=== PATIENT | male | born 1945 | race Caucasian/White ===

== ENCOUNTER 2018-03-15 18:52 | Emergency (ER) | payer OTHER ==
[2018-03-15] MEDS ORDERED: HYDROCODONE/APAP 7.5/325 MG TAB ONE (19:51)
--- NOTE | 2018-03-15 20:45 | RAD REPORT ---
EXAM DESCRIPTION: RAD - Shoulder Right 2 View - 03/15/2018 8:16 pm CLINICAL HISTORY: Right shoulder pain FINDINGS: No fracture or dislocation is seen. Moderate osteoarthritis involves the glenohumeral join t consisting joint space narrowing and osteophytes. Mild osteoarthritis involves the AC joint
--- NOTE | 2018-03-15 20:45 | RAD REPORT ---
EXAM DESCRIPTION: RAD - Wrist Left 2 View - 03/15/2018 8:16 pm CLINICAL HISTORY: Left wrist pain FINDINGS: No fracture or dislocation is seen. 8 millimeter well-circumscribed lucency with a sclerotic border is present within the distal ulna whi ch appears benign
--- NOTE | 2018-03-15 20:56 | ER ---
Nurse's Notes [facility] Name: Bon Simon Age: 73 yrs Sex: Male : 1945 Arrival Date: 03/15/2018 Time: 18:57 Bed 7 Private MD: Silvano Minaya R Diagnosis: Pain in left wrist;Pain in right shoulder Presentation: 03/15 18:59 Presenting complaint: Patient states: "I have been over active working and my left jd3 wrist is hurting me. It is tender and swelling.". Transition of care: patient was not received from another setting of care. Onset of symptoms was March 15, 2018. Risk Assessment: Do you want to hurt yourself or someone else? Patient reports no desire to harm self or others. Initial Sepsis Screen: Does the patient meet any 2 criteria? No. Patient's initial sepsis screen is negative. Does the patient have a suspected source of infection? No. Patient's initial sepsis screen is negative. Care prior to arrival: None. 18:59 Method Of Arrival: Ambulatory jd3 18:59 Acuity: BREA 4 jd3 Historical: - Allergies: 19:03 No Known Allergies; jd3 - Home Meds: 19:03 warfarin 10 mg Oral tab [Active]; Tramadol Oral [Active]; jd3 - PMHx: 19:03 CVA; jd3 - PSHx: 19:03 right lung; jd3 - Immunization history:: Adult Immunizations up to date. - Social history:: Smoking status: Patient/guardian denies using tobacco. - Ebola Screening: : Patient negative for fever greater than or equal to 101.5 degrees Fahrenheit, and additional compatible Ebola Virus Disease symptoms. Screenin:14 Abuse screen: Denies threats or abuse. Denies injuries from another. Nutritional ca1 screening: No deficits noted. Tuberculosis screening: No symptoms or risk factors identified. Fall Risk None identified. Assessment: 19:14 General: Appears in no apparent distress. Behavior is calm, cooperative, appropriate ca1 for age. Pain: Complains of pain in left wrist and right shoulder. Pain currently is 8 out of 10 on a pain scale. Neuro: Level of Consciousness is awake, alert, obeys commands, Oriented to person, place, time, situation. Cardiovascular: Heart tones S1 S2 present Capillary refill < 3 seconds Patient's skin is warm and dry. Respiratory: Airway is patent Trachea midline Respiratory effort is even, unlabored, Respiratory pattern is regular, symmetrical, Breath sounds are clear bilaterally. GI: Abdomen is flat, non-distended, Bowel sounds present X 4 quads. Abd is soft and non tender X 4 quads. : No signs and/or symptoms were reported regarding the genitourinary system. EENT: No signs and/or symptoms were reported regarding the EENT system. Derm: Skin is intact, Skin is pink, warm \\T\\ dry. Musculoskeletal: Circulation, motion, and sensation intact. Capillary refill < 3 seconds. 20:03 Reassessment: Patient appears in no apparent distress at this time. Patient and/or ca1 family updated on plan of care and expected duration. Pain level reassessed. Patient is alert, oriented x 3, equal unlabored respirations, skin warm/dry/pink. X-ray at bedside. 21:00 Reassessment: Patient appears in no apparent distress at this time. Patient and/or ca1 family updated on plan of care and expected duration. Pain level reassessed. Patient is alert, oriented x 3, equal unlabored respirations, skin warm/dry/pink. Rommel wrap done. Refused to put on the sling at this time. Said he'd drop by some place to eat, but will put after with daughter's help. Showed him how to put the sling properly. Vital Signs: 19:03 BP 120 / 101; Pulse 99; Resp 18; Temp 97.1; Pulse Ox 98% ; Weight 99.79 kg; Height 6 jd3 ft. 2 in. (187.96 cm); Pain 7/10; 20:03 BP 156 / 80; Pulse 87; Resp 18; Pulse Ox 98% on R/A; ca1 19:03 Body Mass Index 28.25 (99.79 kg, 187.96 cm) jd3 ED Course: 18:57 Patient arrived in ED. rg4 18:58 Silvano Minaya MD is Private Physician. rg4 19:00 Triage completed. jd3 19:04 Arm band placed on. jd3 19:13 Chaparrita Ledesma, FROYLAN is Primary Nurse. ca1 19:14 Patient has correct armband on for positive identification. Bed in low position. Call ca1 light in reach. Side rails up X 1. Pulse ox on. NIBP on. 19:21 Erma Rodriguez FNP-C is PHCP. kb 19:21 Markel Hussein MD is Attending Physician. kb 20:16 X-ray completed. Portable x-ray completed in exam room. Patient tolerated procedure bb2 well. 20:16 Shoulder Right (2 View) XRAY In Process Unspecified. EDMS 20:16 Wrist Left (2 View) XRAY In Process Unspecified. EDMS 21:00 No provider procedures requiring assistance completed. Rommel wrap to left wrist by BRANDI Dobbs. 21:05 Patient did not have IV access during this emergency room visit. ca1 Administered Medications: 19:32 CANCELLED (Duplicate Order): [place] (7.5 mg-325 mg) 1 tabs PO once kb 19:44 Drug: [place] (7.5 mg-325 mg) 1 tabs Route: PO; ca1 21:09 Follow up: Response: No adverse reaction; Pain is decreased ca1 Outcome: 20:55 Discharge ordered by . kb 21:05 Discharged to home ambulatory, with family. ca1 21:05 Condition: stable 21:05 Discharge instructions given to patient, Instructed on discharge instructions, follow up and referral plans. medication usage, Demonstrated understanding of instructions, follow-up care, medications, Prescriptions given X 1. 21:14 Patient left the ED. ca1 Signatures: Dispatcher [employer] EDNV Erma Rodriguez FNP-C FNP-Ckb Garcia, Rubi rg4 Robert Wilkerson RN RN jNunu Campoverde bb2 Chaparrita Ledesma RN RN ca1
--- NOTE | 2018-03-15 20:56 | EDPHYS ---
Physician Documentation [facility] Name: Bon Simon Age: 73 yrs Sex: Male : 1945 Arrival Date: 03/15/2018 Time: 18:57 Bed 7 Private MD: Silvano Minaya R ED Physician Markel Hussein HPI: 03/15 20:25 This 73 yrs old Male presents to ER via Ambulatory with complaints of Hand kb Swelling, Shoulder Pain. 20:26 The patient or guardian reports pain, swelling, tenderness. The complaints affect the kb left wrist diffusely. Context: The problem was sustained at home, resulted from lifting or pulling. Onset: The symptoms/episode began/occurred yesterday. Modifying factors: The symptoms are alleviated by nothing, the symptoms are aggravated by nothing. Associated signs and symptoms: The patient has no apparent associated signs or symptoms. The patient has not experienced similar symptoms in the past. The patient has not recently seen a physician. Pt reports left wrist and right shoulder pain that started yesterday after moving furniture. Historical: - Allergies: 19:03 No Known Allergies; jd3 - Home Meds: 19:03 warfarin 10 mg Oral tab [Active]; Tramadol Oral [Active]; jd3 - PMHx: 19:03 CVA; jd3 - PSHx: 19:03 right lung; jd3 - Immunization history:: Adult Immunizations up to date. - Social history:: Smoking status: Patient/guardian denies using tobacco. - Ebola Screening: : Patient negative for fever greater than or equal to 101.5 degrees Fahrenheit, and additional compatible Ebola Virus Disease symptoms. ROS: 20:24 Constitutional: Negative for fever, chills, and weight loss, Cardiovascular: Negative kb for chest pain, palpitations, and edema, Respiratory: Negative for shortness of breath, cough, wheezing, and pleuritic chest pain, Abdomen/GI: Negative for abdominal pain, nausea, vomiting, diarrhea, and constipation, Skin: Negative for injury, rash, and discoloration, Neuro: Negative for headache, weakness, numbness, tingling, and seizure. 20:24 MS/extremity: Positive for pain, swelling, tenderness, of the anterior aspect of right shoulder and left wrist. Exam: 20:24 Constitutional: This is a well developed, well nourished patient who is awake, alert, kb and in no acute distress. Head/Face: Normocephalic, atraumatic. Chest/axilla: Normal chest wall appearance and motion. Nontender with no deformity. No lesions are appreciated. Cardiovascular: Regular rate and rhythm with a normal S1 and S2. No gallops, murmurs, or rubs. Normal PMI, no JVD. No pulse deficits. Respiratory: Lungs have equal breath sounds bilaterally, clear to auscultation and percussion. No rales, rhonchi or wheezes noted. No increased work of breathing, no retractions or nasal flaring. Abdomen/GI: Soft, non-tender, with normal bowel sounds. No distension or tympany. No guarding or rebound. No evidence of tenderness throughout. Skin: Warm, dry with normal turgor. Normal color with no rashes, no lesions, and no evidence of cellulitis. Neuro: Awake and alert, GCS 15, oriented to person, place, time, and situation. Cranial nerves II-XII grossly intact. Motor strength 5/5 in all extremities. Sensory grossly intact. Cerebellar exam normal. Normal gait. 20:24 Musculoskeletal/extremity: Extremities: grossly normal except: noted in the anterior aspect of right shoulder and left wrist: pain, swelling, tenderness, ROM: intact in all extremities, Circulation is intact in all extremities. Sensation intact. Vital Signs: 19:03 BP 120 / 101; Pulse 99; Resp 18; Temp 97.1; Pulse Ox 98% ; Weight 99.79 kg; Height 6 jd3 ft. 2 in. (187.96 cm); Pain 7/10; 20:03 BP 156 / 80; Pulse 87; Resp 18; Pulse Ox 98% on R/A; ca1 19:03 Body Mass Index 28.25 (99.79 kg, 187.96 cm) jd3 MDM: 19:21 Patient medically screened. kb 20:25 Data reviewed: vital signs, nurses notes. Data interpreted: Pulse oximetry: on room air kb is 98 %. Interpretation: normal. 20:51 Counseling: I had a detailed discussion with the patient and/or guardian regarding: the kb historical points, exam findings, and any diagnostic results supporting the discharge/admit diagnosis, radiology results, the need for outpatient follow up, a family practitioner, a orthopedic surgeon, to return to the emergency department if symptoms worsen or persist or if there are any questions or concerns that arise at home. 03/15 19:30 Order name: Shoulder Right (2 View) XRAY; Complete Time: 20:51 kb 03/15 19:30 Order name: Wrist Left (2 View) XRAY; Complete Time: 20:45 kb 03/15 20:55 Order name: Sling; Complete Time: 21:09 kb 03/15 20:55 Order name: Rommel Wrap; Complete Time: 21:08 kb Administered Medications: 19:32 CANCELLED (Duplicate Order): [place] (7.5 mg-325 mg) 1 tabs PO once kb 19:44 Drug: [place] (7.5 mg-325 mg) 1 tabs Route: PO; ca1 21:09 Follow up: Response: No adverse reaction; Pain is decreased ca1 Disposition: 03/16 07:51 Co-signature as Attending Physician, Markel Hussein MD I agree with the assessment and eloisa plan of care. Disposition: 03/15/18 20:55 Discharged to Home. Impression: Pain in left wrist, Pain in right shoulder. - Condition is Stable. - Discharge Instructions: Shoulder Pain, [id number], Wrist Pain, [id number], Arthritis, [id number]. - Prescriptions for Tylenol- Codeine #3 300-30 mg Oral Tablet - take 2 tablets by ORAL route every 6 hours As needed; 14 tablet. - Medication Reconciliation Form, Thank You Letter, Antibiotic Education, Prescription Opioid Use form. - Follow up: Emergency Department; When: As needed; Reason: Worsening of condition. Follow up: Private Physician; When: 2 - 3 days; Reason: Recheck today's complaints, Continuance of care, Re-evaluation by your physician. Signatures: Dispatcher [employer] EDNH Erma Rodriguez, OR FIRST ASSIST REGISTERED NURSE-C OR FIRST ASSIST REGISTERED NURSE-Markel Baldwin MD MD cha Davies, Jonathon, RN RN Chaparrita Gillespie RN RN ca1 Corrections: (The following items were deleted from the chart) 03/15 19:32 19:32 [place] (7.5 mg-325 mg) 1 tabs PO once ordered. ca1 kb 21:14 20:55 03/15/2018 20:55 Discharged to Home. Impression: Pain in left wrist; Pain in ca1 right shoulder. Condition is Stable. Forms are Medication Reconciliation Form, Thank You Letter, Antibiotic Education, Prescription Opioid Use. Follow up: Emergency Department; When: As needed; Reason: Worsening of condition. Follow up: Private Physician; When: 2 - 3 days; Reason: Recheck today's complaints, Continuance of care, Re-evaluation by your physician. kb
== END 2018-03-15 21:14 | disposition home or self-care (01) ==
LOC: ER 18:52
DX: M25.511 Pain in right shoulder (principal); M25.532 Pain in left wrist; Z79.01 Long term (current) use of anticoagulants; Z86.73 Personal history of transient ischemic attack (TIA), and cerebral infarction without residual deficits
CPT/HCPCS: 99284

== ENCOUNTER 2019-09-23 15:22 | Emergency (ER) | payer OTHER ==
--- OUTSIDE RECORDS SUMMARY | 2019-09-23 15:25 | XMS REPORT | Continuity of Care Document ---
:1945 Author Organization [facility] t Address [address] [place] [address] Care Team Providers Name Role Phone Unavailable Unavailable Unavailable Problems Condition Condition Condition Status Onset Resolution Last Treating Co mments Source Name Details Category Date Date Treatment Clinician Date Cerebrovas Cerebrovas Problem Active [facility]ular [facility] - accident accident Memori a (CVA), (CVA), l unspecifie unspecifie Ou tpati d d ent mechanism mechanism Clin ics Hemiparesi Hemiparesi Problem Active [facility] of right s of right Linda kes - dominant dominant Memori a side as side as l late late Outpati effect of effect of ent cerebrovas cerebrovas Cl inics cular cular disease, disease, unspecifie unspecifie d d cerebrovas cerebrovas cular cular disease disease type type Dermatocha Dermatocha Problem Active [facility] lasis of lasis of [facility] - right right Memoria upper upper l eyelid eyelid Outpati ent Clinics Dermatocha Dermatocha Problem Active [facility] lasis of lasis of [facility] - left upper left upper Me moria eyelid eyelid l Outpati ent Clinics Essential Essential Problem Active [facility] hypertensi hypertensi Linda kes - on on [facility] Long-term Long-term Problem Active [facility] (current) (current) Luke [facility] - use of use of Memoria anticoagul anticoagul l ants, INR ants, INR Outp ati goal goal ent 2.0-3.0 2.0-3.0 Clinics Tobacco Tobacco Problem Active [facility] use use [facility] - disorder, disorder, Eran percy continuous continuous l Outpati ent Clinics Primary Primary Problem Active [facility] osteoarthr osteoarthr Linda kes - itis of itis of Memoria right knee right knee l Outpati ent Clinics Allergies, Adverse Reactions, Alerts This patient has no known allergies or adverse reactions. Medications Ordered Filled Start Stop Current Ordering Indication Dosage Frequency Signature Comments Components Source Medication Medication Date Date Medication? Clinician (SIG) Name Name Marily Calixto Yes Zach take [address] [facility] 5-18 Dominique [facility] - 00:00: Memoria 00 l Outpati ent Clinics Warfarin Warfarin Yes Zach [address] Sodium Sodium Dominique [facility] Tramadol Tramadol Yes Zach [address] HCl HCl Dominique as needed [facility] Lisinopril/ Lisinopril/ Yes Zach one tablet [facility] HCTZ HCTZ Dominique [facility] Centrum Centrum Yes Zach as [facility] Silver Silver Dominique directed [facility] Xyzal Xyzal Yes Zach not [facility] Dominique defined [facility] Procedures This patient has no known procedures. Encounters Start End Encounter Admission Attending Care Care Encounter Source Date/Time Date/Time Type Type Clinicians Facility Department ID 2019-07-27 2019-07-27 [facility] [id number] [facility] 10:21[facility]00 10:21:00 [facility] Medicine Outpati ent Clinics 2019-07-24 2019-07-24 [facility] [id number] [facility] 10:30:00 10:30:00 [employer] [facility] Medicine Outpati ent Clinics 2019-06-16 2019-06-16 [facility] [id number] [facility] 10:30:00 10:30:00 [employer] [facility] Medicine Outpati ent Clinics Results This patient has no known results.
--- OUTSIDE RECORDS SUMMARY | 2019-09-23 15:25 | XMS REPORT ---
:1945 Author Organization [employer] Care Team Providers Name Role Phone DominiqueZach Provider Role Unavailable Allergies, Adverse Reactions, Alerts Substance Reaction Event Type N.K.D.A. Info Not Available Non Drug Allergy Problems Problem Type Condition Code Onset Dates Condition Statu s Assessment Cerebrovascular accident (CVA), I63.9 Active unspecified mechanism Problem Hemiparesis of right dominant side I69.951 Active as late effect of cerebrovascular disease, unspecified cerebrovascular disease type Problem Dermatochalasis of right upper H02.831 Active eyelid Problem Dermatochalasis of left upper H02.834 Active eyelid Problem Essential hypertension I10 Activ e Problem Long-term (current) use of Z79.01 A ctive anticoagulants, INR goal 2.0-3.0 Problem Tobacco use disorder, continuous F17.209 Active Problem Primary osteoarthritis of right M17.11 Active knee Problem Cerebrovascular accident (CVA), I63.9 Active unspecified mechanism Assessment Chronic, continuous use of opioids F11.90 Active Assessment Primary osteoarthritis of right M17.11 Active knee Assessment Tobacco use disorder, continuous F17.209 Active Assessment Hemiparesis of right dominant side I69.951 Active as late effect of cerebrovascular disease, unspecified cerebrovascular disease type Assessment Long-term (current) use of Z79.01 A ctive anticoagulants, INR goal 2.0-3.0 Assessment Essential hypertension I10 Activ e Medications Medication Code Code Instructions Start End Status Dosage System Date Date Eliquis [facility] [id number] 5 MG Orally BID July 23, Active take 1 tab 2020 Centrum Silver [place] [id number] - Orally Active as d irected Lisinopril/HCT ND 03480679789 20/12.5 PO Q Active one tablet Z daily Tramadol HCl ND 25171764606 50 MG Orally Active 1 tablet as BID PRN Pain needed Xyzal NDC 0 Active not defined Warfarin ND 62316953078 5 MG Orally Inactive 2 tabl et Sodium Once a day Results No Known Results Summary Purpose [employer] Submission
--- OUTSIDE RECORDS SUMMARY | 2019-09-23 15:26 | XMS REPORT ---
:1945 Author Organization [employer] Care Team Providers Name Role Phone Zach Dominique Provider Role Unavailable Allergies No Known Allergies Problems Problem Type Condition Code Onset Dates Condition Statu s Assessment Long-term (current) use of Z79.01 A ctive anticoagulants, INR goal 2.0-3.0 Problem Hemiparesis of right dominant side I69.951 [...] Cerebrovascular accident (CVA), I63.9 Active unspecified mechanism Medications No Known Medications Results No Known Results Summary Purpose eClinicalWorks Submission
--- NOTE | 2019-09-23 17:27 | ER ---
Nurse's Notes [facility] Name: Bon Simon Age: 74 yrs Sex: Male : 1945 Arrival Date: 09/23/2019 Time: 15:31 Bed Waiting Private MD: Diagnosis: Presentation: 09/22 15:31 Chief complaint: Patient states: heartburn x 2 days. Has tried Omeprazole OTC with no sv relief. Denies SOB or CP. Coronavirus screen: Patient denies a cough. Patient denies shortness of breath or difficulty breathing. Patient denies measured and/or subjective temperature greater than 100.4F prior to today's visit. Patient denies travel on a cruise ship or to a country the [facility] currently lists as an affected area. Patient denies contact with known and/or suspected case of COVID-19. Proceed with normal triage. Ebola Screen: No symptoms or risks identified at this time. Risk Assessment: Do you want to hurt yourself or someone else? Patient reports no desire to harm self or others. Onset of symptoms was September 21, 2019. 15:31 Method Of Arrival: Wheelchair sv 15:31 Acuity: BREA 4 sv 15:33 Initial Sepsis Screen: Does the patient meet any 2 criteria? No. Patient's initial sv sepsis screen is negative. Does the patient have a suspected source of infection? No. Patient's initial sepsis screen is negative. Historical: - Allergies: 15:33 No Known Allergies; sv - PMHx: 15:33 CVA; sv - PSHx: 15:33 right lung; sv - Immunization history:: Adult Immunizations. - Social history:: Smoking status: Patient reports the use of cigarette tobacco products, smokes one-half pack cigarettes per day. Vital Signs: 15:33 BP 139 / 66; Pulse 68; Resp 20; Temp 99.2; Pulse Ox 99% ; Weight 104.33 kg; Height 6 sv ft. 2 in. (187.96 cm); 15:33 Body Mass Index 29.53 (104.33 kg, 187.96 cm) sv ED Course: 15:31 Patient arrived in ED. sv 15:32 Triage completed. sv 15:33 Arm band placed on. sv 16:40 Patient's name was called from ER lobby. No response. sv 16:50 Patient's name was called from ER lobby. No response. sv 17:05 Patient's name was called from ER lobby. No response. sv Administered Medications: No medications were administered Outcome: 17:26 Patient left the ED. sv Signatures: Jacqueline Robertson RN RN sv
[2019-09-23 18:16] VITALS: BP 139/66; TEMP 99.2; O2SAT 99
== END 2019-09-23 17:26 | disposition left against medical advice (07) ==
LOC: ER 15:22
DX: Z53.21 Procedure and treatment not carried out due to patient leaving prior to being seen by health care provider (principal)
CPT/HCPCS: 99281

== ENCOUNTER 2019-11-15 11:37 | Inpatient (IN) | payer OTHER ==
--- NOTE | 2019-11-16 16:15 | R.PREADM ---
PRE-ADMISSION SCREENING FORM SCREENING DATE AND TIME 11/14/2019 15:51 (CDT) ANTICIPATED REHAB ADMISSION DATE 11/16/2019 REFERRING FACILITY [facility] REFERRAL DATE AND TIME 11/14/2019 15:51 (CDT) ACUTE ADMIT DATE 11/06/2019 Previous Rehabilitation(s): No. 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 CLINICAL LIAISON Johanne Veloz PHYSICIAN REVIEWER Dr. Job Duque M.D. MR# [id number] NAME BON SIMON ADDRESS [address] [facility] PHONE [facility] [id number] DATE OF 1945 AGE 74 SSN# [id number] GENDER male MARITAL STATUS RACE unknown race ADMIT FROM 02 - [facility] PRE-HOSPITAL LIVING SETTING 01 - Home (private home/apt. board/care, assisted living, penitentiary, transitional living) HOME TYPE AND DETAILS Type of home: single family house # of levels in the residence: 1 # of steps within the residence: 0 # of steps to enter the residence: 0 PRE-HOSPITAL LIVING WITH Alone FAMILY SUPPORT No PRIMARY FAMILY CONTACT NAME ERIKA SIMON PRIMARY FAMILY CONTACT PHONE PRIMARY FAMILY CONTACT RELATIONSHIP Son PHONE PRIMARY FAMILY CONTACT ON ADM.? no IS PRIMARY FAMILY CONTACT AUTH. REP.? no 1ST EMERGENCY CONTACT ERIKA SIMON 1ST CONTACT PHONE 1ST CONTACT RELATIONSHIP Son PHONE 1ST CONTACT ON ADM. no IS 1ST CONTACT AUTH. REP.? no PHONE 2ND CONTACT ON ADM.? no PATIENT EMPLOYMENT STATUS Retired (for age) PATIENT EMPLOYER No Employer PAYOR INFORMATION: 1ST PAYOR NAME [facility] 1ST PAYOR PHONE [phone] 1ST PAYOR INJURY/ILLNESS DUE TO ACCIDENT? No ANOTHER LIBERTARIAN RESPONSIBLE? No PRIMARY REHAB/ACUTE DIAGNOSIS: STROKE ONSET DATE 11/06/2019 REHAB IMPAIRMENT CATEGORY (LIT): 01 Stroke (STR) MEETS 60% rule AFFECTED EXTREMITIES: RLE, and RUE PRIMARY DIAGNOSIS-RELATED SURGERIES: No surgeries related to the primary diagnosis were performed. SUMMARY OF ACUTE HOSPITALIZATION: Pt. is a 74 yo Right-handed male of unknown race. On 11/06/2019 Pt. presented to [facility] with sudden onset of right-side weakness. On 11/06/2019 he was admitted to [facility] with diagnosis STROKE. His impairment category is Stroke 01 - Right Body (Left Brain) (01.2). Pre-morbidly, Pt. was independent/mod-I in Locomotion, Safety Awareness, Social Cognition, Balance, T ransfers Control, Self-Care, and Communication; and he had good Sphincter Control and Endurance. Currently, he has deficits of Locomotion, Balance, Transfers Control, Sphincter Control, and Enduranc e. Pt. is now referred to [facility] for acute in-patient rehabilitation in order to maximize patient's functional independence in activities of daily living, strength, ROM, and mobi lity. Patient has realistic goal of being discharged at assistance level 7-Ind to reside at Home with Pt s elf. Bon Simon is a 74 year old male that lives independently at home in his one story home. He has no stairs to get into his house. He was able to do daily activated on his own with difficulty prior. He has a history of prior CVA in 2009 who presents with worsening of baseline right sided weakness/numbness in leg/arm beginning on the morning of 11/05- he fell out of his chair due to weakness. Previously able to ambulate without difficulty. Mr. Simon has done all of his own caring, Cooking and laundry. He performs all his own ADLs and IA DLs. Prior to COVID he was seeing her PCP regularly. He would most definitely benefit from acute inpatient rehab and has become severely debilitated and unable to live at his prior level of activity at home Getting her stronger and better to be back living at home independently is our goal. It is reasonable and necessary for the patient to come to acute inpatient rehab for approximately 7-10 days in order to return to his prior level of care. He is now being transferred to [facility] Inpatient rehabilitation and is medically stable with relatively stable labs. He is now medically stable but in need of 24 hour nursing, doctor supervision and oversight while receiving active and ongoing participate in 3 hours of therapy a day/15 hours per week and receive care with intensive interdisciplinary approach. COVID-19 screening performed; spoke with patient via phone. Patient denies new onset of fever, cough, difficulty breathing, sore throat, body aches and non-allergy nasal congestion in the past 24 hours. Patient denies travel outside of [place] in the past 14 days. Patient denies any contact with someone who has a confirmed diagnosis of or is under investigation for COVID-19 in the past 14 days. Patient has been tested negative for COVID- 19. PAST MEDICAL HISTORY ACUTE CVA 2010 HTN TABACCO PMHx MEDICATION ALLERGIES: No Known Drug Allergies (NKDA) ENVIRONMENTAL ALLERGIES: - Substance Allergies None Known - Other Allergies None Known CODE STATUS: Full code WEIGHT/HEIGHT/BMI: WEIGHT 215 lbs HEIGHT 6' 3" BMI 26.9 DIET: - Diet Type Regular - Diet - Solid Texture Regular - Diet - Liquid Texture Regular - Tube Feed N/A REVIEW OF SYSTEMS: - Gen Alert and awake Lying in bed No apparent distress Oriented to: person, time, and place - Vital Signs Temperature: 97.0 F SBP/DBP: 139/64 Pulse: 75 Resp: 20 Vital signs stable, afebrile - CVS RRR VITAL SIGNS Temperature: 97.0 F SBP/DBP: 139/64 Pulse: 75 Resp: 20 Vital signs stable, afebrile MEDICATIONS/TREATMENT: Other- See attached MAR (Medication Administration Record). CURRENT SPHINCTER CONTROL: Pre-hospital bladder status: unspecified # of bladder accidents in the last 7 days prior to screenin Pre-hospital bowel status: unspecified # of bowel accidents in the last 7 days prior to screenin Last Bowel Movement Date: 11/14/2019 CURRENT LOCOMOTION STATUS: distance walked 0 feet DETAILED CURRENT FUNCTIONAL STATUS: - Bladder accident frequency: Ind - No accidents in the past 7 days - Bowel accident frequency: Ind - No accidents in the past 7 days - Walking score based on distance walked: 0(N/A) - Wheelchair score based on distance traveled: 0(N/A) QI SCORES: - Self-Care A. Eating 03-Partial/moderate assistance B. Oral hygiene 02-Substantial/maximal assistance C. Toileting hygiene 02-Substantial/maximal assistance E. Shower/bathe self 02-Substantial/maximal assistance F. Upper body dressing 02-Substantial/maximal assistance G. Lower body dressing 02-Substantial/maximal assistance H. Putting on/taking off footwear 88-Not attempted due to medical condition or safety concerns - Mobility A. Roll left and right 03-Partial/moderate assistance B. Sit to lying 03-Partial/moderate assistance C. Lying to sitting on side of bed 03-Partial/moderate assistance D. Sit to stand 02-Substantial/maximal assistance E. Chair/[id number]-ut-[id number] transfer 02-Substantial/maximal assistance F. Toilet transfer 88-Not attempted due to medical condition or safety concerns G. Car transfer 88-Not attempted due to medical condition or safety concerns I. Walk 10 feet 88-Not attempted due to medical condition or safety concerns J. Walk 50 feet with two turns 88-Not attempted due to medical condition or safety concerns K. Walk 150 feet 88-Not attempted due to medical condition or safety concerns L. Walking 10 feet on uneven surfaces 88-Not attempted due to medical condition or safety concerns M. 1 step (curb) 88-Not attempted due to medical condition or safety concerns N. 4 steps 88-Not attempted due to medical condition or safety concerns O. 12 steps 88-Not attempted due to medical condition or safety concerns P. Picking up object 88-Not attempted due to medical condition or safety concerns R. Wheel 50 feet with two turns 88-Not attempted due to medical condition or safety concerns S. Wheel 150 feet 88-Not attempted due to medical condition or safety concerns - Bladder and Bowel Bladder continence Bowel continence - Endurance Fair - Balance Fair - Safety Awareness Fair CURRENT FUNC. DEFICITS: Endurance, Balance, Self-Care, Safety Awareness, and Mobility CURRENT / PREVIOUS ASSISTIVE DEVICES: Hospital Bed Rolling Walker Wheelchair HISTORY OF FALLS. HAS THE PATIENT HAD TWO OR MORE FALLS IN THE PAST YEAR OR ANY FALL WITH INJURY IN T HE PAST YEAR?: No PRIOR SURGERY. DID THE PATIENT HAVE MAJOR SURGERY DURING THE 100 DAYS PRIOR TO ADMISSION?: No THERAPY NOTES FROM ACUTE CARE: Attached. SPECIAL NEEDS: - Safety Concerns Skin breakdown precautions needed due to skin breakdown risk PATIENT NEEDS ACTIVE AND ONGOING THERAPEUTIC INTERVENTION OF MULTIPLE THERAPY DISCIPLINES, INCLUDING: - Occupational Therapy Cognitive Retraining. Visual Perceptual Training. - Dietary and Nutrition Adequate Nutrition. Nutritional Education. Nutritional Supplements. - Speech Therapy Cognitive Training. Expressive Language Skills. Memory Strategies. Receptive Language Skills. Speech Intelligibility Training. PATIENT NEEDS CLOSE MEDICAL SUPERVISION BY A REHABILITATION PHYSICIAN FOR: Coordination of Treatment Team PATIENT REQUIRES 24X7 REHAB NURSING FOR MEDICAL AND FUNCTIONAL MGT. OF THE FOLLOWING DEFICITS: Disease Management Medication Management Patient/Family Education Providing Safe Environment PATIENT REQUIRES INTENSIVE, COORDINATED INTERDISCIPLINARY APPROACH TO REHAB: Arranging Home Equipment/Services Discharge Planning Family Intervention/Training Director Life Sciences/Case Management PATIENT REHAB POTENTIAL: Clarisa SIMON is able and expected to receive 3 hours of individualized therapy daily on at least 5 of e very 7 days Clarisa Cam prognosis for significant practical improvement within a reasonable period of time appea rs Good Expected level of measurable improvement will be of a practical value to Clarisa Cam functional [place] or adaptations to impairments Has a viable Discharge Plan Medically appropriate; condition is sufficiently stable to participate in intensive rehab program DISCHARGE PLAN: - Estimated Length of Stay (days) 17. - Consensus on plan Discharge plan has been discussed with primary caregiver. Patient/Family is in agreement with the marietta n. Primary caregiver is in agreement with the plan. - Patient/Family Goals Return home independently. - Planned Living Setting Upon Discharge Home, to live alone. Transitional Living. Primary caregiver: Pt self. RECOMMENDED CARE LEVEL: IRF RECOMMENDATION DETAILS: Recommended Admission to Comprehensive Rehabilitation Program to Increase Functional [place] SCREENER'S COMPLETENESS CONFIRMATION: - Screening Confirmation The patient data collection on this preadmission screening form is finished PHYSICIANS REVIEW AND ADMISSION DETERMINATION Admit - Based on my review of the Pre-Admission Screening results, in my medical judgment and experie nce, I concur with the findings and recommend admission to [facility], as this patient requires an IRF level of care. SIGNATURE PANEL: Journeyman Glazier - [electronically] signed by Johanne Veloz on 11/16/2019 at 15:45 (CDT) Journeyman Glazier - [electronically] signed by Eli Richardson RN on 11/16/2019 at 15:52 (CDT) Physician Reviewer - [electronically] signed by Dr. Job Duque M.D. on 11/16/2019 at 16:13 (CDT )
--- OUTSIDE RECORDS SUMMARY | 2019-11-16 20:42 | XMS REPORT | Continuity of Care Document ---
:1945 Author Organization [facility] t Address [address] [place] [address] Care Team Providers Name Role Phone Unavailable [...] Linda kes - on on [facility] Outpat[facility] ent Clinics Long-term Long-term Problem [facility] [...] knee right knee l Outpati ent Clinics Cataract Cataract Problem [facility], [facility] unspecifie unspecifie l d cataract d cataract Ou tpati type type ent Clinics Allergies, Adverse Reactions, Alerts This [...] one tablet [facility] HCTZ HCTZ Dominique [facility] - [facility] l Outpati ent Clinics Centrum Centrum Yes Zach as [facility] Silver Silver Dominique directed [facility] Xyzal Xyzal Yes Zach not [facility] Dominique defined [facility] Procedures This patient has no known procedures. Encounters Start End Encounter Admission Attending Care Care Encounter Source Date/Time Date/Time Type Type Clinicians Facility Department ID 2019-10-30 2019-10-30 [facility] [id number] [facility] 13:38[facility]00 13:38[facility]00 [facility] Out[facility] Clin[facility] 2019-07-27 2019-07-27 [facility] [id number] [facility] 10:21:00 10:21:00 [facility] Medicine Outpati ent Clinics 2019-07-24 2019-07-24 [facility] [id number] 10:30:00 10:30:00 [facility] Medicine Outpati ent Clinics 2019-06-16 2019-06-16 [facility] [id number] [facility] 10:30:00 10:30:00 [facility] Out[facility] Clinics Results This patient has no known results.
--- OUTSIDE RECORDS SUMMARY | 2019-11-16 20:42 | XMS REPORT ---
:1945 Author Organization [employer] Care Team Providers Name Role Phone Zach Dominique Provider Role Unavailable Allergies No Known Allergies Problems Problem Type Condition Code Onset Dates Condition Statu s Problem Tobacco use disorder, continuous F17.209 Active Problem Hemiparesis of right dominant side I69.951 Active as late effect of cerebrovascular disease, unspecified cerebrovascular disease type Assessment Cataract of right eye, unspecified H26.9 Active cataract type Problem Essential hypertension I10 Activ e Problem Dermatochalasis of right upper H02.831 Active eyelid Problem Cataract of right eye, unspecified H26.9 Active cataract type Problem Cerebrovascular accident (CVA), I63.9 Active unspecified mechanism Problem Long-term (current) use of Z79.01 A ctive anticoagulants, INR goal 2.0-3.0 Problem Dermatochalasis of left upper H02.834 Active eyelid Problem Primary osteoarthritis of right M17.11 Active knee Medications No Known Medications Results No Known Results Summary Purpose eClinicalWorks Submission
[2019-11-16] MEDS ORDERED: GLUCAGON 1 MG/VIAL IM PRN (21:37)
[2019-11-16] MEDS ORDERED: D50W 25 GM/50 ML SYRINGE/VIAL IV PRN (21:37)
[2019-11-16 23:34] LABS: Urine Appearance CLEAR; Urine Bilirubin NEGATIVE (NEG); Urine Blood NEGATIVE (NEG); Urine Color YELLOW; Urine Glucose 1+ (NEG); Urine Protein NEGATIVE (NEG); Urine Specific Gravity >=1.030 (1.005-1.030)
[2019-11-17 00:24] LABS: Calcium Oxalate Crystals- Ur MANY (NONE SEEN); Urine Bacteria <20 /HPF (NONE SEEN); Urine Culture Reflex Order NOT NEEDED; Urine RBC <5 /HPF (NONE SEEN)
[2019-11-17] MEDS: carvediloL 3.125 MG TAB PO SCH ×3 (05:05→17:03)
[2019-11-17] MEDS: PANTOPRAZOLE 40MG TABLET PO SCH (06:21)
[2019-11-17 06:27] LABS: Absolute Lymphocytes (CBC) 1.6 K/uL (0.7-4.9); Basophils % 0.4 % (0-1.3); Hematocrit 38.3 % (39.6-49.0); Lymphocytes % 18.9 % (15.3-44.8)
[2019-11-17 06:36] LABS: Protime INR 1.05
[2019-11-17 06:44] LABS: Albumin 2.7 g/dL (3.4-5.0); Magnesium 2.3 mg/dL (1.8-2.4); Potassium 4.1 mmol/L (3.5-5.1); Prealbumin 27.3 mg/dL (20-40)
[2019-11-17] MEDS: INSULIN -REGULAR HUMAN 50 UNIT/0.5 ML ML SQ SCH ×4 (07:18→20:42)
[2019-11-17] MEDS: NICOTINE 7 MG/PAT TD SCH (07:43)
[2019-11-17] MEDS: FLUOXETINE 20 MG CAP PO SCH (07:44)
[2019-11-17] MEDS: ASPIRIN 81 MG CHEWABLE TABLET PO SCH (07:44)
[2019-11-17] MEDS: lisinopriL 20 MG TAB PO SCH (07:44)
[2019-11-17 09:31] LABS: White Blood Cell Scan OK (OK)
[2019-11-17 09:32] LABS: Platelet Estimate DECR
[2019-11-17 09:33] LABS: Platelets, Giant PRESENT
[2019-11-17 09:34] LABS: Blood Morphology Comment NOT SEEN (NOT SEEN)
--- NOTE | 2019-11-17 09:44 | P.RH.PN ---
Estimated Length of Stay: 14 Expected Discharge Date: 12/01/19 Discharge Disposition Plan: Nursing Home Facility Family Support: Yes Vital Signs: Last Vital Signs Temp 97.5 F 11/17/19 07:35 Pulse 63 11/17/19 07:44 Resp 16 11/17/19 07:35 BP 135/49 L 11/17/19 07:44 Pulse Ox 95 11/17/19 07:35 Laboratory: Laboratory Last Values WBC 8.7 K/uL (4.3-10.9) 11/17/19 06:00 RBC 4.60 M/uL (4.33-5.43) 11/17/19 06:00 Hgb 13.2 g/dL (13.6-17.9) L 11/17/19 06:00 Hct 38.3 % (39.6-49.0) L 11/17/19 06:00 MCV 83.2 fL (80-100) D 11/17/19 06:00 MCH 28.8 pg (27.0-35.0) 11/17/19 06:00 MCHC 34.6 g/dL (32.0-36.0) 11/17/19 06:00 RDW 14.5 % (12.1-15.2) 11/17/19 06:00 Plt Count 76 K/uL (152-406) L 11/17/19 06:00 MPV 9.0 fL (7.6-11.3) 11/17/19 06:00 Neutrophils % 71.2 % (41.7-73.7) 11/17/19 06:00 Lymphocytes % 18.9 % (15.3-44.8) 11/17/19 06:00 Monocytes % 9.1 % (3.3-12.3) 11/17/19 06:00 Eosinophils % 0.4 % (0-4.4) 11/17/19 06:00 Basophils % 0.4 % (0-1.3) 11/17/19 06:00 Absolute Neutrophils 6.2 K/uL (1.8-8.0) 11/17/19 06:00 Absolute Lymphocytes 1.6 K/uL (0.7-4.9) 11/17/19 06:00 Absolute Monocytes 0.8 K/uL (0.1-1.3) 11/17/19 06:00 Absolute Eosinophils 0.0 K/uL (0-0.5) 11/17/19 06:00 Absolute Basophils 0.0 K/uL (0-0.5) 11/17/19 06:00 Platelet Estimate Decr 11/17/19 06:00 Giant Platelets Present 11/17/19 06:00 Morphology Comment Not seen (NOT SEEN) 11/17/19 06:00 PT 12.4 SECONDS (9.5-12.5) 11/17/19 06:00 INR 1.05 11/17/19 06:00 Sodium 139 mmol/L (136-145) 11/17/19 06:00 Potassium 4.1 mmol/L (3.5-5.1) 11/17/19 06:00 Chloride 108 mmol/L (98-107) H 11/17/19 06:00 Carbon Dioxide 28 mmol/L (21-32) 11/17/19 06:00 BUN 32 mg/dL (7-18) H 11/17/19 06:00 Creatinine 1.17 mg/dL (0.55-1.3) 11/17/19 06:00 Estimated GFR 61 mL/min (=/>90) L 11/17/19 06:00 Glucose 143 mg/dL (74-106) H 11/17/19 06:00 POC Glucose 145 mg/dL (65-120) H 11/17/19 06:46 Calcium 8.4 mg/dL (8.5-10.1) L 11/17/19 06:00 Magnesium 2.3 mg/dL (1.8-2.4) 11/17/19 06:00 Albumin 2.7 g/dL (3.4-5.0) L 11/17/19 06:00 Prealbumin 27.3 mg/dL (20-40) 11/17/19 06:00 Urine Color Yellow 11/16/19 22:25 Urine Appearance Clear 11/16/19 22:25 Urine pH 6.0 (5.0-7.0) 11/16/19 22:25 Ur Specific [place] >=1.030 (1.005-1.030) 11/16/19 22:25 Glucose (UA)(Auto) 1+ (NEG) H 11/16/19 22:25 Urine Ketones Negative (NEG) 09/10/20 22:25 Urine Blood Negative (NEG) 11/16/19 22:25 Urine Nitrite Negative (NEG) 11/16/19 22:25 Urine Bilirubin Negative (NEG) 11/16/19 22: Urine Urobilinogen 1.0 mg/dL (0.2-1.0) 11/16/19 22:25 Ur Leukocyte Esterase Negative (NEG) 11/16/19 22:25 Urine RBC <5 /HPF (NONE SEEN) 11/16/19 22:25 Urine WBC <5 /HPF (<5) 11/16/19 22:25 Ur Squamous Epith Cells 5-10 /HPF (NONE SEEN) H 11/16/19 22:25 Calcium Oxalate Crystal Many (NONE SEEN) H 11/16/19 22:25 Urine Bacteria <20 /HPF (NONE SEEN) 11/16/19 22: Urine Culture Reflexed Not needed 11/16/19 22: Urine Total Protein Negative (NEG) 11/16/19 22: Smear Scan Ok (OK) 11/17/19 06:00 Weight: 220 lb Physician Update: Max assistance with ADLs. Max assistance to transfer. His right leg is 0/5. His right arm is 4/5. He must use the Amanda Plus for transfers due to hard leaning to the right with standing. His labs were reviewed and are stable. He will be reviewed by speech therapy. He is incontinent of bowel and bladder function. 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 Please see the Rehabilitation Signature page for all necessary signatures.
--- NOTE | 2019-11-17 13:38 | R.HP ---
HISTORY AND PHYSICAL FACILITY: [facility] ENCOUNTER DATE AND TIME: 11/17/2019 13:25 (CDT) MR#: [id number] NAME JEREMIE SIMON ADDRESS: [address] CITY: [place] [address] [address] PHONE: DATE OF : 1945 AGE: 74 SSN# [id number] GENDER: Male DEXTERITY Right-handed MARITAL STATUS RACE Unknown race PRE-HOSPITAL LIVING SETTING 01 - Home (private home/apt. board/care, assisted living, mcc, transitional living) PRE-HOSPITAL LIVING WITH Alone ENCOUNTER PHYSICIAN: Dr. Job Duque M.D. REFERRING DOCTOR: DR.HASAM HAWTHORNE DATE OF ADMISSION: 11/16/2019 18:41 (CDT) REFERRING FACILITY [facility] HOME TYPE AND DETAILS: Type of home: single family house # of levels in the residence: 1 # of steps within the residence: 0 # of steps to enter the residence: 0 ONSET DATE: 11/06/2019 PRIMARY DIAGNOSIS-RELATED SURGERIES: No surgeries related to the primary diagnosis were performed. HISTORY OF PRESENT ILLNESS (HPI): Currently, he has deficits of Locomotion, Balance, Transfers Control, Sphincter Control, and Enduranc e. On 11/06/2019 Pt. presented to [facility] with sudden onset of right-side weakness. On 11/06/2019 he was admitted to [facility] with diagnosis Left hemispheric STROKE. His impairment category is Stroke 01 - Right Body (Left Brain) (01.2). Pre-morbidly, Pt. was independent/mod-I in Locomotion, Safety Awareness, Social Cognition, Balance, T ransfers Control, Self-Care, and Communication; and he had good Sphincter Control and Endurance. Pt. is now referred to [facility] for acute in-patient rehabilitation in order to maximize patient's functional independence in activities of daily living, strength, ROM, and mobi lity. Pt. is a 74 yo Right-handed male of unknown race. Patient has realistic goal of being discharged at assistance level 7-Ind to reside at Home with Pt s elf. Jeremie Simon is a 74 year old male that lives independently at home in his one story home. He has no stairs to get into his house. He was able to do daily activated on his own with difficulty prior. He has a history of prior CVA in 2009 who presents with worsening of baseline right sided weakness/numbness in leg/arm beginning on the morning of 11/05- he fell out of his chair due to weakness. Previously able to ambulate without difficulty. Mr. Simon has done all of his own caring, Cooking and laundry. He performs all his own ADLs and IA DLs. Prior to COVID he was seeing her PCP regularly. He would most definitely benefit from acute inpatient rehab and has become severely debilitated and unable to live at his prior level of activity at home Getting her stronger and better to be back living at home independently is our goal. It is reasonable and necessary for the patient to come to acute inpatient rehab for approximately 7-10 days in order to return to his prior level of care. He is now being transferred to [facility] Inpatient rehabilitation and is medically stable with relatively stable labs. He is now medically stable but in need of 24 hour nursing, doctor supervision and oversight while receiving active and ongoing participate in 3 hours of therapy a day/15 hours per week and receive care with intensive interdisciplinary approach. COVID-19 screening performed; spoke with patient via phone. Patient denies new onset of fever, cough, difficulty breathing, sore throat, body aches and non-allergy nasal congestion in the past 24 hours. Patient denies travel outside of [place] in the past 14 days. Patient denies any contact with someone who has a confirmed diagnosis of or is under investigation for COVID-19 in the past 14 days. Patient has been tested negative for COVID- 19. MEDICATION ALLERGIES: No Known Drug Allergies (NKDA) ENVIRONMENTAL ALLERGIES: - Substance Allergies None Known - Other Allergies None Known PAST MEDICAL HISTORY: ACUTE CVA 2010 HTN PMHx [place] SOCIAL HISTORY: - Home Living Alone REVIEW OF SYSTEMS: - Gen No Chills Fatigue No Fever - Eyes No Double Vision No itchiness - ENMT No Difficulty Swallowing - CVS No Chest Discomfort No Chest Pain Fatigue No Weight Gain - Resp No Cough No Shortness of Breath - GI Continent No Abdominal Pain No Constipation No Diarrhea - Continent No Kidney Pain No Painful Urination No Urinary Urgency - MSK No Joint Pain Muscle Cramps Stiffness - Skin No Itching No Rash No Suspicious Lesions - Neuro Coordination Difficulty No Difficulty with Concentration No Memory Loss No Seizures Weakness - Psych No Anxiety No Depression No HIV Exposure No Persistent Infections No Seasonal Allergies - Endo No Cold/Heat Intolerance No Excessive Hunger No Excessive Thirst No Excessive Urination PHYSICAL EXAM - Gen Alert and awake Lying in bed No apparent distress Oriented to: person, time, and place - Skin No breakdown No abnormalities - Eyes No abnormalities - ENMT No abnormalities - Neck No abnormalities - CVS RRR - Chest No abnormalities - Abd Soft - GI Non distended Deferred - No abnormalities - Ext Mild right lower extremity edema. - MSK 0/5 weakness in right lower extremity, 4/5 right upper extremity strength. - Neuro 0/5 weakness in right lower extremity, 4/5 right upper extremity strength. - Psych No abnormalities VITAL SIGNS Temperature: 97.5 F SBP/DBP: 135/49 Pulse: 63 Resp: 16 NURSING: - Shower allowing shower - Bladder care per protocol - Skin care per protocol PRECAUTIONS: - Weight Bearing Precaution WBAT right LE ACTIVITIES OOB only with supervision QI SCORES: - Self-Care A. Eating 03-Partial/moderate assistance B. Oral hygiene 02-Substantial/maximal assistance C. Toileting hygiene 02-Substantial/maximal assistance E. Shower/bathe self 02-Substantial/maximal assistance F. Upper body dressing 02-Substantial/maximal assistance G. Lower body dressing 02-Substantial/maximal assistance H. Putting on/taking off footwear 88-Not attempted due to medical condition or safety concerns - Mobility M. 1 step (curb) 88-Not attempted due to medical condition or safety concerns N. 4 steps 88-Not attempted due to medical condition or safety concerns O. 12 steps 88-Not attempted due to medical condition or safety concerns P. Picking up object 88-Not attempted due to medical condition or safety concerns R. Wheel 50 feet with two turns 88-Not attempted due to medical condition or safety concerns A. Roll left and right 03-Partial/moderate assistance B. Sit to lying 03-Partial/moderate assistance C. Lying to sitting on side of bed 03-Partial/moderate assistance D. Sit to stand 02-Substantial/maximal assistance E. Chair/[id number] transfer 02-Substantial/maximal assistance F. Toilet transfer 88-Not attempted due to medical condition or safety concerns G. Car transfer 88-Not attempted due to medical condition or safety concerns I. Walk 10 feet 88-Not attempted due to medical condition or safety concerns J. Walk 50 feet with two turns 88-Not attempted due to medical condition or safety concerns K. Walk 150 feet 88-Not attempted due to medical condition or safety concerns L. Walking 10 feet on uneven surfaces 88-Not attempted due to medical condition or safety concerns S. Wheel 150 feet 88-Not attempted due to medical condition or safety concerns - Bladder and Bowel Bladder continence Bowel continence - Endurance Fair - Balance Fair - Safety Awareness Fair CURRENT FUNC. DEFICITS: Endurance, Balance, Self-Care, Safety Awareness, and Mobility MEDICATIONS: - Other See attached MAR (Medication Administration Record) ASSESSMENT: Currently, he has deficits of Locomotion, Balance, Transfers Control, Sphincter Control, and Enduranc e.On 11/06/2019 Pt. presented to [facility] with sudden onset of right-side weakness.On 0 he was admitted to [facility] with diagnosis Left hemispheric STROKE.His impairment category is Stroke 01 - Right Body (Left Brain) (01.2).Pt. is now referred to [facility] for acute in-patient rehabilitation in order to maximize patient's functional independence in activi ties of daily living, strength, ROM, and mobility.- Rehab Goal Patient has realistic goal of being discharged at assistance level 7-Ind to reside at Home with Pt s elf. Pre-morbidly, Pt. was independent/mod-I in Locomotion, Safety Awareness, Social Cognition, Balance, T ransfers Control, Self-Care, and Communication; and he had good Sphincter Control and Endurance.Pt. i s a 74 yo Right-handed male of unknown race.Jeremie Simon is a 74 year old male that lives independ ently at home in his one story home. He has no stairs to get into his house. He was able to do daily activated on his own with difficulty prior. He has a history of prior CVA in 2009 who presents with worsening of baseline right sided weakness/numbness in leg/arm beginning on the morning of 11/05- he fell out of his chair due to weakness. Previously able to ambulate without difficulty. Mr. Simon has done all of his own caring, Cooking and laundry. He performs all his own ADLs and IA DLs. Prior to COVID he was seeing her PCP regularly. He would most definitely benefit from acute inpatient rehab and has become severely debilitated and unable to live at his prior level of activity at home Getting her stronger and better to be back living at home independently is our goal. It is reasonable and necessary for the patient to come to acute inpatient rehab for approximately 7-10 days in order to return to his prior level of care. He is now being transferred to [facility] Inpatient rehabilitation and is medically stable with relatively stable labs. He is now medically stable but in need of 24 hour nursing, doctor supervision and oversight while receiving active and ongoing participate in 3 hours of therapy a day/15 hours per week and receive care with intensive interdisciplinary approach. COVID-19 screening performed; spoke with patient via phone. Patient denies new onset of fever, cough, difficulty breathing, sore throat, body aches and non-allergy nasal congestion in the past 24 hours. Patient denies travel outside of [place] in the past 14 days. Patient denies any contact with someone who has a confirmed diagnosis of or is under investigation for COVID-19 in the past 14 days. Patient has been tested negative for COVID- 19.REHAB PLAN: for Dementia, TBI, Stroke, or others - Physical Therapy Weakness - to improve, our physical therapists will perform initial evaluation of pt's status upon a dmission and devise an individualized program for Aquatic Therapy, Neuromuscular Reeducation, and Str engthening Poor balance - to improve, our physical therapists will perform initial evaluation of pt's status up on admission and devise an individualized program for Balance Training Inability to transfer - to improve, our physical therapists will perform initial evaluation of pt's status upon admission and devise an individualized program for Bed mobility Need in caregiver upon discharge - to improve, our physical therapists will perform initial evaluati on of pt's status upon admission and devise an individualized program for Caregiver Training Poor endurance - to improve, our physical therapists will perform initial evaluation of pt's status upon admission and devise an individualized program for Endurance Training Gait dysfunction - to improve, our physical therapists will perform initial evaluation of pt's statu s upon admission and devise an individualized program for Gait Training, and Wheel Chair mobility Need for home safety evaluation - to improve, our physical therapists will perform initial evaluatio n of pt's status upon admission and devise an individualized program for Home Evaluation New precaution - to improve, our physical therapists will perform initial evaluation of pt's status upon admission and devise an individualized program for Patient precaution education Edema - to improve, our physical therapists will perform initial evaluation of pt's status upon admi ssion and devise an individualized program for Elevation Training, and Lymphedema Therapy - Occupational Therapy Weakness - to improve, our occupation therapists will perform initial evaluation of pt's status upon admission and devise an individualized program for Aquatic Therapy, Balance, Endurance, UE ROM, and UE strengthening Need for career center director - to improve, our occupation therapists will perform initial evaluation of pt's status upon admission and devise an individualized program for Caregiver Training - Balance for Weakness - Bed mobility for ADL deficits - Cognition - orientation for aphasia - Dressing Status: dep for ADL deficits - Eating for ADL deficits - Grooming Status: min for ADL deficits - Toilet Transfer Status: dep for ADL deficits - Bed to Chair Transfer squat pivot transfer Status: dep for ADL deficits - Tub Transfer for ADL deficits Status: dep - Hygiene for ADL deficits - Shower Transfer for ADL deficits Status: dep - Wheel Chair to Bed Transfer Status: dep for ADL deficits MEDICAL PLAN: - Diet Type Regular - Diet - Liquid Texture Regular - Tube Feed N/A - Bladder care per protocol - Weight Bearing Precaution WBAT LE - Skin care per protocol - Other See attached MAR (Medication Administration Record) - Diet - Solid Texture Regular - Shower shower DISCHARGE PLAN: - Estimated Length of Stay (days) 17. - Consensus on plan Discharge plan has been discussed with primary caregiver. Patient/Family is in agreement with the marietta n. Primary caregiver is in agreement with the plan. - Patient/Family Goals Return home independently. - Planned Living Setting Upon Discharge Home, to live alone. Transitional Living. Primary caregiver: Pt self. SIGNATURE PANEL: (CDT)
--- NOTE | 2019-11-17 13:39 | PAPE ---
POST ADMISSION PHYSICIAN EVALUATION PATIENT: [facility] MR# [id number] REFERRING DOCTOR DR.HASAM HAWTHORNE EVALUATION DATE AND TIME 11/17/2019 13:38 (CDT) NAME JEREMIE STATON DATE OF 1945 AGE 74 PHONE SSN# [id number] GENDER male EVALUATING PHYSICIAN Dr. Job Duque M.D. ADMISSION DIAGNOSIS: Left hemispheric STROKE ONSET DATE 11/06/2019 POST-ADMISSION FUNCTIONAL/MEDICAL STATUS: - Bladder Same accident frequency: Ind - No accidents in the past 7 days - Bowel Same accident frequency: Ind - No accidents in the past 7 days - Walking Same score based on distance walked: 0(N/A) - Wheelchair Same score based on distance traveled: 0(N/A) STATUS CHANGE EVALUATION: No change in Functional or Medical Status is identified compared with Pre-Admission screening. PATIENT NEEDS CLOSE MEDICAL SUPERVISION BY A REHABILITATION PHYSICIAN FOR: Coordination of Treatment Team PATIENT REQUIRES 24X7 REHAB NURSING FOR MEDICAL AND FUNCTIONAL MGT. OF THE FOLLOWING DEFICITS: Disease Management Medication Management Patient/Family Education Providing Safe Environment PATIENT REQUIRES INTENSIVE, COORDINATED INTERDISCIPLINARY APPROACH TO REHAB: Arranging Home Equipment/Services Discharge Planning Family Intervention/Training Baby Sitter/Case Management LIST OF IDENTIFIED AND POTENTIAL PROBLEMS: Alteration in leisure activities Bladder, Incontinence Bowel, Incontinence Infection, Actual or Potential Mobility Impaired Pain, Alteration in Comfort Self Care Deficit Skin Integrity, Actual or Potential Urinary Tract Infection (UTI), Actual or Potential PATIENT COULD BE AT RISK FOR COMPLICATIONS FROM ADVERSE MEDICAL CONDITIONS DUE TO HIS/HER COMORBIDITI ES AND THE RIGORS OF THE INTENSIVE REHABILLITATION PROGRAM. METHODS OR INTERVENTIONS TO AVOID COMPLIC ATIONS INCLUDE: - Bleeding Stroke patients assessed for lethargy or change in status. - Infection Clinical staff to assess and manage the signs and symptoms of infection including fever, redness, war mth, etc. - Urinary Tract Infection - Aspiration Clinical staff will assess and manage coughing, drooling, congestion. - Falls Patient will be evaluated for Fall Precautions and will be placed on Fall Precautions as indicated pe r protocol. - Skin Breakdown Nursing will assess skin daily using assessment tool and will place on Skin Breakdown Precautions as indicated per protocol. - Pain Clinical staff may employ non-medication methods such as massage, distraction, decrease stimulus, etc . as needed. Clinical staff will assess patient's pain level every shift per protocol to assess and e nsure pain management effectiveness. Medications will be given and the pain level re-assessed. PRELIMINARY PLAN OF CARE: - Physical Therapy Patient needs Physical Therapy for a daily minimum of 1.5 hours at least 5 out of 7 days, to improve: Mobility, Strengthening, Transfers, Stretching, ROM, Endurance, Ability to manage stairs, Gait, and Balance. - Speech Therapy Patient needs Speech Therapy for a daily minimum of 0.5 hours at least 5 out of 7 days, to improve: S wallowing, Cognition, Language Skills, and Compensatory Strategies. - Rehabilitation Nursing Patient requires 24x7 Rehabilitation Nursing for: Pain Issues, Identifying and preventing risk factor s, Monitoring and reporting current medical conditions, Assisting with ambulation and transfer, Lizette ting with all ADL-s, Teaching patients about disease process and medications, Family teaching, Provid ing safe environment, Bowel and Bladder Issues, Skin Integrity, and Medication Management. Patient needs Baby Sitter and/or Case Management for: Discharge Planning, Arranging Home Equipmen t or Services, and Family Interventions. - Dietary and Nutrition Services Patient needs Dietary and Nutrition Services for: Adequate Nutrition, Nutritional Supplements, and Nu tritional Education. - Occupational Therapy Patient needs Occupational Therapy for a daily minimum of 1.5 hours at least 5 out of 7 days, to impr ove Activities of Daily Living, including: Eating, Grooming, Bathing, Dressing, Toileting, Toilet Tra nsfers, Community Reintegration, Higher functional activities, Adaptive Equipment, Splinting, Househo ld Tasks, and Other activities as determined. QI SCORES: - Self-Care A. Eating 03-Partial/moderate assistance B. Oral hygiene 02-Substantial/maximal assistance C. Toileting hygiene 02-Substantial/maximal assistance E. Shower/bathe self 02-Substantial/maximal assistance F. Upper body dressing 02-Substantial/maximal assistance G. Lower body dressing 02-Substantial/maximal assistance H. Putting on/taking off footwear 88-Not attempted due to medical condition or safety concerns - Mobility M. 1 step (curb) 88-Not attempted due to medical condition or safety concerns N. 4 steps 88-Not attempted due to medical condition or safety concerns O. 12 steps 88-Not attempted due to medical condition or safety concerns P. Picking up object 88-Not attempted due to medical condition or safety concerns R. Wheel 50 feet with two turns 88-Not attempted due to medical condition or safety concerns A. Roll left and right 03-Partial/moderate assistance B. Sit to lying 03-Partial/moderate assistance C. Lying to sitting on side of bed 03-Partial/moderate assistance D. Sit to stand 02-Substantial/maximal assistance E. Chair/[id number] transfer 02-Substantial/maximal assistance F. Toilet transfer 88-Not attempted due to medical condition or safety concerns G. Car transfer 88-Not attempted due to medical condition or safety concerns I. Walk 10 feet 88-Not attempted due to medical condition or safety concerns J. Walk 50 feet with two turns 88-Not attempted due to medical condition or safety concerns K. Walk 150 feet 88-Not attempted due to medical condition or safety concerns L. Walking 10 feet on uneven surfaces 88-Not attempted due to medical condition or safety concerns S. Wheel 150 feet 88-Not attempted due to medical condition or safety concerns - Bladder and Bowel Bladder continence Bowel continence - Endurance Fair - Balance Fair - Safety Awareness Fair POTENTIAL FUNCTIONAL GOALS FOR PATIENT TO ACHIEVE BY DISCHARGE: - Safety Precaution Patient will remain free from falls or injury at time of discharge. - Bed Mobility Patient will perform bed mobility at 4-[place] level of assistance. - Transfers Patient will complete transfers from bed to chair at 4-[place] level of assistance. - Mobility Patient will ambulate 150 ft with 4-[place] level of assistance with RW. PATIENT REHAB POTENTIAL Clarisa STATON is able and expected to receive 3 hours of individualized therapy daily on at least 5 of e very 7 days Clarisa STATON's prognosis for significant practical improvement within a reasonable period of time appea rs Good Expected level of measurable improvement will be of a practical value to Clarisa STATON's functional capa city or adaptations to impairments Has a viable Discharge Plan Medically appropriate; condition is sufficiently stable to participate in intensive rehab program DISCHARGE PLAN: - Estimated Length of Stay (days) 17. - Consensus on plan Discharge plan has been discussed with primary caregiver. Patient/Family is in agreement with the marietta n. Primary caregiver is in agreement with the plan. - Patient/Family Goals Return home independently. - Planned Living Setting Upon Discharge Home, to live alone. Transitional Living. Primary caregiver: Pt self. CONCLUSION ON REHABILITATION NECESSITY: I have evaluated patient's pre-admission functional status and, comparing it to the patient's post-ad mission functional status now, I conclude that the pre-admission assessment was accurate. Patient's c ondition on admission supports the medical necessity of admission to [facility]. It is safe to proceed with patient's therapy program. SIGNATURE PANEL: (CDT)
[2019-11-17] MEDS: WARFARIN SODIUM 2 MG TAB PO SCH (16:59)
[2019-11-17] MEDS: ENOXAPARIN 40 MG/0.4 ML SQ SCH (16:59)
[2019-11-17] MEDS: ATORVASTATIN 20 MG TAB PO SCH (20:42)
[2019-11-18] MEDS: carvediloL 3.125 MG TAB PO SCH ×2 (05:16→17:02)
[2019-11-18 06:17] LABS: Protime INR 1.01
[2019-11-18] MEDS: PANTOPRAZOLE 40MG TABLET PO SCH (06:36)
[2019-11-18] MEDS: INSULIN -REGULAR HUMAN 50 UNIT/0.5 ML ML SQ SCH ×4 (07:30→19:56)
[2019-11-18] MEDS: ACETAMINOPHEN 500 MG TAB PO PRN (07:48)
[2019-11-18] MEDS: NICOTINE 7 MG/PAT TD SCH (07:48)
[2019-11-18] MEDS: lisinopriL 20 MG TAB PO SCH (07:49)
[2019-11-18] MEDS: ASPIRIN 81 MG CHEWABLE TABLET PO SCH (07:49)
[2019-11-18] MEDS: FLUOXETINE 20 MG CAP PO SCH (07:49)
[2019-11-18] MEDS: WARFARIN SODIUM 2 MG TAB PO SCH (17:02)
[2019-11-18] MEDS: ENOXAPARIN 40 MG/0.4 ML SQ SCH (17:02)
[2019-11-18] MEDS: ATORVASTATIN 20 MG TAB PO SCH (19:55)
[2019-11-18] MEDS: CRANBERRY FRUIT EXTRACT 200 MG CAP PO SCH ×2 (19:56→19:58)
[2019-11-19 07:01] LABS: Protime INR 1.02
[2019-11-19] MEDS: PANTOPRAZOLE 40MG TABLET PO SCH (07:20)
[2019-11-19] MEDS: INSULIN -REGULAR HUMAN 50 UNIT/0.5 ML ML SQ SCH ×4 (07:30→20:21)
[2019-11-19] MEDS ORDERED: carvediloL 3.125 MG TAB PO SCH (08:00)
[2019-11-19] MEDS: FLUOXETINE 20 MG CAP PO SCH (09:01)
[2019-11-19] MEDS: ASPIRIN 81 MG CHEWABLE TABLET PO SCH (09:01)
[2019-11-19] MEDS: CRANBERRY FRUIT EXTRACT 200 MG CAP PO SCH ×2 (09:02→20:21)
[2019-11-19] MEDS: NICOTINE 7 MG/PAT TD SCH (09:03)
[2019-11-19] MEDS: lisinopriL 20 MG TAB PO SCH (10:28)
[2019-11-19] MEDS: ENOXAPARIN 40 MG/0.4 ML SQ SCH (16:34)
[2019-11-19] MEDS ORDERED: WARFARIN SODIUM 5 MG TAB PO SCH (17:00)
[2019-11-19] MEDS: carvediloL 3.125 MG TAB PO SCH (17:44)
[2019-11-19] MEDS: WARFARIN SODIUM 5 MG TAB PO SCH (17:44)
[2019-11-19] MEDS: ATORVASTATIN 20 MG TAB PO SCH (20:21)
[2019-11-20] MEDS: carvediloL 3.125 MG TAB PO SCH ×2 (05:07→17:10)
[2019-11-20] MEDS: PANTOPRAZOLE 40MG TABLET PO SCH (06:24)
[2019-11-20 06:34] LABS: Protime INR 1.08
[2019-11-20] MEDS: INSULIN -REGULAR HUMAN 50 UNIT/0.5 ML ML SQ SCH ×4 (07:30→20:25)
[2019-11-20] MEDS: lisinopriL 20 MG TAB PO SCH (07:49)
[2019-11-20] MEDS: FLUOXETINE 20 MG CAP PO SCH (07:49)
[2019-11-20] MEDS: ASPIRIN 81 MG CHEWABLE TABLET PO SCH (07:49)
[2019-11-20] MEDS: CRANBERRY FRUIT EXTRACT 200 MG CAP PO SCH ×2 (07:49→20:19)
[2019-11-20] MEDS: ACETAMINOPHEN 500 MG TAB PO PRN ×2 (08:29→12:08)
[2019-11-20] MEDS: NICOTINE 7 MG/PAT TD SCH (09:15)
[2019-11-20] MEDS: NYSTATIN PWDR 100000 UNIT/GM TOP SCH ×2 (09:48→20:21)
[2019-11-20] MEDS ORDERED: LIDOCAINE VISCOUS 2% SOLN 15 ML UDC PO SCH (14:00)
[2019-11-20] MEDS: ENOXAPARIN 40 MG/0.4 ML SQ SCH (17:10)
[2019-11-20] MEDS: WARFARIN SODIUM 5 MG TAB PO SCH (17:10)
--- NOTE | 2019-11-20 19:30 | R.PN ---
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 SUBJECTIVE: Pt denied any depression. Pt denied any Shortness of Breath. CBC with differential is essentially normal. Glucose 143 to 189. Prealbumin 27.3. UA with C and S sh owed E-Coli sensitive to Cipro. Will treat with Cipro 500 mg bid for 5 days. Gait training done in the parallel bars with maximum assistance. VITAL SIGNS Temperature: 97.4 F SBP/DBP: 159/76 Pulse: 61 Resp: 16 MEDICATION ALLERGIES: No Known Drug Allergies (NKDA) ENVIRONMENTAL ALLERGIES: - Substance Allergies None Known - Other Allergies None Known NURSING: - Shower allowing shower - Bladder care per protocol - Skin care per protocol PRECAUTIONS: - Weight Bearing Precaution WBAT right LE ACTIVITIES OOB only with supervision THERAPIES: - Occupational Therapy Cognitive Retraining. Visual Perceptual Training. - Dietary and Nutrition Adequate Nutrition. Nutritional Education. Nutritional Supplements. - Speech Therapy Cognitive Training. Expressive Language Skills. Memory Strategies. Receptive Language Skills. Speech Intelligibility Training. PHYSICAL EXAM - Gen Alert and awake Lying in bed No apparent distress Oriented to: person, time, and place - Skin No breakdown No abnormalities - Eyes No abnormalities - ENMT No abnormalities - Neck No abnormalities - CVS RRR - Chest No abnormalities - Abd Soft - GI Non distended Deferred - No abnormalities - Ext Mild right lower extremity edema. - MSK 0/5 weakness in right lower extremity, 4/5 right upper extremity strength. - Neuro 0/5 weakness in right lower extremity, 4/5 right upper extremity strength. - Psych No abnormalities ASSESSMENT: Currently, he has deficits of Locomotion, Balance, Transfers Control, Sphincter Control, and Enduranc e.On 11/06/2019 Pt. presented to [facility] with sudden onset of right-side weakness.On 0 he was admitted to [facility] with diagnosis Left hemispheric STROKE.His impairment category is Stroke 01 - Right Body (Left Brain) (01.2).Pt. is now referred to [facility] for acute in-patient rehabilitation in order to maximize patient's functional independence in activi ties of daily living, strength, ROM, and mobility.Pre-morbidly, Pt. was independent/mod-I in Locomoti on, Safety Awareness, Social Cognition, Balance, Transfers Control, Self-Care, and Communication; and he had good Sphincter Control and Endurance.Pt. is a 74 yo Right-handed male of unknown race.- Rehab Goal Patient has realistic goal of being discharged at assistance level 7-Ind to reside at Home with Pt s elf. MDM/PLAN: - Physical Therapy Edema - to improve, our physical therapists will perform initial evaluation of pt's status upon admis urvashi and devise an individualized program for Elevation Training, and Lymphedema Therapy Gait dysfunction - to improve, our physical therapists will perform initial evaluation of pt's status upon admission and devise an individualized program for Gait Training, and Wheel Chair mobility Inability to transfer - to improve, our physical therapists will perform initial evaluation of pt's s tatus upon admission and devise an individualized program for Bed mobility Need for home safety evaluation - to improve, our physical therapists will perform initial evaluation of pt's status upon admission and devise an individualized program for Home Evaluation Need in caregiver upon discharge - to improve, our physical therapists will perform initial evaluatio n of pt's status upon admission and devise an individualized program for Caregiver Training New precaution - to improve, our physical therapists will perform initial evaluation of pt's status u philippe admission and devise an individualized program for Patient precaution education Poor balance - to improve, our physical therapists will perform initial evaluation of pt's status upo n admission and devise an individualized program for Balance Training Poor endurance - to improve, our physical therapists will perform initial evaluation of pt's status u philippe admission and devise an individualized program for Endurance Training Weakness - to improve, our physical therapists will perform initial evaluation of pt's status upon ad mission and devise an individualized program for Aquatic Therapy, Neuromuscular Reeducation, and Stre ngthening - Occupational Therapy Need for patient care provider - to improve, our occupation therapists will perform initial evaluation of pt's s tatus upon admission and devise an individualized program for Caregiver Training Weakness - to improve, our occupation therapists will perform initial evaluation of pt's status upon admission and devise an individualized program for Aquatic Therapy, Balance, Endurance, UE ROM, and U E strengthening - Cognition - orientation for aphasia - Dressing Status: dep for ADL deficits - Grooming Status: min for ADL deficits - Toilet Transfer Status: dep for ADL deficits - Bed to Chair Transfer squat pivot transfer Status: dep for ADL deficits - Tub Transfer Status: dep for ADL deficits - Shower Transfer Status: dep for ADL deficits - Wheel Chair to Bed Transfer Status: dep for ADL deficits - Other See attached MAR (Medication Administration Record) - Diet Type Continue Regular - Diet - Liquid Texture Continue Regular - Tube Feed Continue N/A - Bladder care per protocol - Weight Bearing Precaution WBAT right LE - Skin care per protocol - Diet - Solid Texture Continue Regular - Shower allowing shower for Dementia, TBI, Stroke, or others - Balance for Weakness - Bed mobility for ADL deficits - Eating for ADL deficits - Hygiene for ADL deficits FUNCTIONAL STATUS: UPDATED AT WEEKLY TEAM CONFERENCE - Bladder Same accident frequency: 7-Ind - No accidents in the past 7 days - Bowel Same accident frequency: 7-Ind - No accidents in the past 7 days - Walking Same score based on distance walked: 0(N/A) - Wheelchair Same score based on distance traveled: 0(N/A) FUNCTIONAL STATUS: - Self-Care A. Eating Usha B. Grooming sup C. Bathing maxA D. Dressing - Upper modA E. Dressing - Lower maxA F. Toileting maxA - Sphincter Control G. Bladder control Amaury H. Bowel control Amaury - Transfers Control I. Bed/Chair/Wheelchair maxA J. Toilet maxA K. Tub/Shower maxA - Locomotion L. Walk/Wheelchair (B) maxA M. Stairs ADNO - Communication N. Comprehension (B) sup O. Expression (B) sup - Social Cognition P. Social Interaction Usha Q. Problem Solving sup R. Memory sup - Endurance Poor - Balance Poor - Safety Awareness Poor QI SCORES: - Self-Care A. Eating 03-Partial/moderate assistance B. Oral hygiene 02-Substantial/maximal assistance C. Toileting hygiene 02-Substantial/maximal assistance E. Shower/bathe self 02-Substantial/maximal assistance F. Upper body dressing 02-Substantial/maximal assistance G. Lower body dressing 02-Substantial/maximal assistance H. Putting on/taking off footwear 88-Not attempted due to medical condition or safety concerns - Mobility M. 1 step (curb) 88-Not attempted due to medical condition or safety concerns N. 4 steps 88-Not attempted due to medical condition or safety concerns O. 12 steps 88-Not attempted due to medical condition or safety concerns P. Picking up object 88-Not attempted due to medical condition or safety concerns R. Wheel 50 feet with two turns 88-Not attempted due to medical condition or safety concerns A. Roll left and right 03-Partial/moderate assistance B. Sit to lying 03-Partial/moderate assistance C. Lying to sitting on side of bed 03-Partial/moderate assistance D. Sit to stand 02-Substantial/maximal assistance E. Chair/[id number] transfer 02-Substantial/maximal assistance F. Toilet transfer 88-Not attempted due to medical condition or safety concerns G. Car transfer 88-Not attempted due to medical condition or safety concerns I. Walk 10 feet 88-Not attempted due to medical condition or safety concerns J. Walk 50 feet with two turns 88-Not attempted due to medical condition or safety concerns K. Walk 150 feet 88-Not attempted due to medical condition or safety concerns L. Walking 10 feet on uneven surfaces 88-Not attempted due to medical condition or safety concerns S. Wheel 150 feet 88-Not attempted due to medical condition or safety concerns - Bladder and Bowel Bladder continence Bowel continence - Endurance Fair - Balance Fair - Safety Awareness Fair CURRENT [facility]. DEFICITS: Endurance, Balance, Self-Care, Safety Awareness, and Mobility SIGNATURE PANEL: (CDT)
[2019-11-20] MEDS: CIPROFLOXACIN HCL 500 MG TAB PO SCH (20:19)
[2019-11-20] MEDS: ATORVASTATIN 20 MG TAB PO SCH (20:20)
[2019-11-20] MEDS: MELATONIN 3 MG TABLET PO PRN (20:20)
[2019-11-21] MEDS: carvediloL 3.125 MG TAB PO SCH ×2 (05:01→17:47)
[2019-11-21 06:00] LABS: Protime INR 1.11
[2019-11-21] MEDS: INSULIN -REGULAR HUMAN 50 UNIT/0.5 ML ML SQ SCH ×4 (07:30→21:00)
[2019-11-21] MEDS: NICOTINE 7 MG/PAT TD SCH (07:35)
[2019-11-21] MEDS: ASPIRIN 81 MG CHEWABLE TABLET PO SCH (07:36)
[2019-11-21] MEDS: FLUOXETINE 20 MG CAP PO SCH (07:36)
[2019-11-21] MEDS: lisinopriL 20 MG TAB PO SCH (07:37)
[2019-11-21] MEDS: CIPROFLOXACIN HCL 500 MG TAB PO SCH ×2 (07:37→21:07)
[2019-11-21] MEDS: PANTOPRAZOLE 40MG TABLET PO SCH (07:38)
[2019-11-21] MEDS: CRANBERRY FRUIT EXTRACT 200 MG CAP PO SCH ×2 (08:00→21:06)
[2019-11-21] MEDS: NYSTATIN PWDR 100000 UNIT/GM TOP SCH ×2 (08:00→20:00)
[2019-11-21] MEDS: ACETAMINOPHEN 500 MG TAB PO PRN (10:31)
[2019-11-21] MEDS ORDERED: WARFARIN SODIUM 2 MG TAB PO ONE (17:00)
[2019-11-21] MEDS: ENOXAPARIN 40 MG/0.4 ML SQ SCH (17:22)
[2019-11-21] MEDS: WARFARIN SODIUM 5 MG TAB PO SCH (17:22)
--- NOTE | 2019-11-21 19:38 | R.PN ---
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 SUBJECTIVE: Pt denied any depression. Pt denied any Shortness of Breath. CBC with differential is essentially normal. Glucose 148 to 175. Prealbumin 27.3. UA with C and S sh owed E-Coli sensitive to Cipro. Will treat with Cipro 500 mg bid for 5 days. Gait training done in the parallel bars with maximum assistance. INR 1.11 will give coumadin 7 mg today and recheck INR in the AM. VITAL SIGNS Temperature: 97.5 F SBP/DBP: 129/52 Pulse: 62 Resp: 16 MEDICATION ALLERGIES: No Known Drug Allergies (NKDA) ENVIRONMENTAL ALLERGIES: - Substance Allergies None Known - Other Allergies None Known NURSING: - Shower allowing shower - Bladder care per protocol - Skin care per protocol PRECAUTIONS: - Weight Bearing Precaution WBAT right LE ACTIVITIES OOB only with supervision THERAPIES: - Occupational Therapy Cognitive Retraining. Visual Perceptual Training. - Dietary and Nutrition Adequate Nutrition. Nutritional Education. Nutritional Supplements. - Speech Therapy Cognitive Training. Expressive Language Skills. Memory Strategies. Receptive Language Skills. Speech Intelligibility Training. PHYSICAL EXAM - Gen Alert and awake Lying in bed No apparent distress Oriented to: person, time, and place - Skin No breakdown No abnormalities - Eyes No abnormalities - ENMT No abnormalities - Neck No abnormalities - CVS RRR - Chest No abnormalities - Abd Soft - GI Non distended Deferred - No abnormalities - Ext Mild right lower extremity edema. - MSK 0/5 weakness in right lower extremity, 4/5 right upper extremity strength. - Neuro 0/5 weakness in right lower extremity, 4/5 right upper extremity strength. - Psych No abnormalities ASSESSMENT: Currently, he has deficits of Locomotion, Balance, Transfers Control, Sphincter Control, and Enduranc e.On 11/06/2019 Pt. presented to [facility] with sudden onset of right-side weakness.On 0 he was admitted to [facility] with diagnosis Left hemispheric STROKE.His impairment category is Stroke 01 - Right Body (Left Brain) (01.2).Pt. is now referred to [facility] for acute in-patient rehabilitation in order to maximize patient's functional independence in activi ties of daily living, strength, ROM, and mobility.Pre-morbidly, Pt. was independent/mod-I in Locomoti on, Safety Awareness, Social Cognition, Balance, Transfers Control, Self-Care, and Communication; and he had good Sphincter Control and Endurance.Pt. is a 74 yo Right-handed male of unknown race.- Rehab Goal Patient has realistic goal of being discharged at assistance level 7-Ind to reside at Home with Pt s elf. MDM/PLAN: - Physical Therapy Edema - to improve, our physical therapists will perform initial evaluation of pt's status upon admi ssion and devise an individualized program for Elevation Training, and Lymphedema Therapy Gait dysfunction - to improve, our physical therapists will perform initial evaluation of pt's statu s upon admission and devise an individualized program for Gait Training, and Wheel Chair mobility Inability to transfer - to improve, our physical therapists will perform initial evaluation of pt's status upon admission and devise an individualized program for Bed mobility Need for home safety evaluation - to improve, our physical therapists will perform initial evaluatio n of pt's status upon admission and devise an individualized program for Home Evaluation Need in caregiver upon discharge - to improve, our physical therapists will perform initial evaluati on of pt's status upon admission and devise an individualized program for Caregiver Training New precaution - to improve, our physical therapists will perform initial evaluation of pt's status upon admission and devise an individualized program for Patient precaution education Poor balance - to improve, our physical therapists will perform initial evaluation of pt's status up on admission and devise an individualized program for Balance Training Poor endurance - to improve, our physical therapists will perform initial evaluation of pt's status upon admission and devise an individualized program for Endurance Training Weakness - to improve, our physical therapists will perform initial evaluation of pt's status upon a dmission and devise an individualized program for Aquatic Therapy, Neuromuscular Reeducation, and Str engthening - Occupational Therapy Need for rn progressive care unit - to improve, our occupation therapists will perform initial evaluation of pt's status upon admission and devise an individualized program for Caregiver Training Weakness - to improve, our occupation therapists will perform initial evaluation of pt's status upon admission and devise an individualized program for Aquatic Therapy, Balance, Endurance, UE ROM, and UE strengthening - Cognition - orientation for aphasia - Dressing Status: dep for ADL deficits - Grooming Status: min for ADL deficits - Toilet Transfer Status: dep for ADL deficits - Bed to Chair Transfer squat pivot transfer Status: dep for ADL deficits - Tub Transfer Status: dep for ADL deficits - Shower Transfer Status: dep for ADL deficits - Wheel Chair to Bed Transfer Status: dep for ADL deficits - Other See attached MAR (Medication Administration Record) - Diet Type Continue Regular - Diet - Liquid Texture Continue Regular - Tube Feed Continue N/A - Bladder care per protocol - Weight Bearing Precaution WBAT right LE - Skin care per protocol - Diet - Solid Texture Continue Regular - Shower allowing shower for Dementia, TBI, Stroke, or others - Balance for Weakness - Bed mobility for ADL deficits - Eating for ADL deficits - Hygiene for ADL deficits FUNCTIONAL STATUS: UPDATED AT WEEKLY TEAM CONFERENCE - Bladder Same accident frequency: 7-Ind - No accidents in the past 7 days - Bowel Same accident frequency: 7-Ind - No accidents in the past 7 days - Walking Same score based on distance walked: 0(N/A) - Wheelchair Same score based on distance traveled: 0(N/A) FUNCTIONAL STATUS: - Self-Care A. Eating Usha B. Grooming sup C. Bathing maxA D. Dressing - Upper modA E. Dressing - Lower maxA F. Toileting maxA - Sphincter Control G. Bladder control Amaury H. Bowel control Amaury - Transfers Control I. Bed/Chair/Wheelchair maxA J. Toilet maxA K. Tub/Shower maxA - Locomotion L. Walk/Wheelchair (B) maxA M. Stairs ADNO - Communication N. Comprehension (B) sup O. Expression (B) sup - Social Cognition P. Social Interaction Usha Q. Problem Solving sup R. Memory sup - Endurance Poor - Balance Poor - Safety Awareness Poor QI SCORES: - Self-Care A. Eating 03-Partial/moderate assistance B. Oral hygiene 02-Substantial/maximal assistance C. Toileting hygiene 02-Substantial/maximal assistance E. Shower/bathe self 02-Substantial/maximal assistance F. Upper body dressing 02-Substantial/maximal assistance G. Lower body dressing 02-Substantial/maximal assistance H. Putting on/taking off footwear 88-Not attempted due to medical condition or safety concerns - Mobility M. 1 step (curb) 88-Not attempted due to medical condition or safety concerns N. 4 steps 88-Not attempted due to medical condition or safety concerns O. 12 steps 88-Not attempted due to medical condition or safety concerns P. Picking up object 88-Not attempted due to medical condition or safety concerns R. Wheel 50 feet with two turns 88-Not attempted due to medical condition or safety concerns A. Roll left and right 03-Partial/moderate assistance B. Sit to lying 03-Partial/moderate assistance C. Lying to sitting on side of bed 03-Partial/moderate assistance D. Sit to stand 02-Substantial/maximal assistance E. Chair/[id number] transfer 02-Substantial/maximal assistance F. Toilet transfer 88-Not attempted due to medical condition or safety concerns G. Car transfer 88-Not attempted due to medical condition or safety concerns I. Walk 10 feet 88-Not attempted due to medical condition or safety concerns J. Walk 50 feet with two turns 88-Not attempted due to medical condition or safety concerns K. Walk 150 feet 88-Not attempted due to medical condition or safety concerns L. Walking 10 feet on uneven surfaces 88-Not attempted due to medical condition or safety concerns S. Wheel 150 feet 88-Not attempted due to medical condition or safety concerns - Bladder and Bowel Bladder continence Bowel continence - Endurance Fair - Balance Fair - Safety Awareness Fair CURRENT [facility]. DEFICITS: Endurance, Balance, Self-Care, Safety Awareness, and Mobility SIGNATURE PANEL: (CDT)
[2019-11-21] MEDS: ATORVASTATIN 20 MG TAB PO SCH (21:07)
[2019-11-21] MEDS: MELATONIN 3 MG TABLET PO PRN (21:08)
[2019-11-22] MEDS: carvediloL 3.125 MG TAB PO SCH ×2 (05:07→17:04)
[2019-11-22] MEDS: PANTOPRAZOLE 40MG TABLET PO SCH (06:21)
[2019-11-22 06:34] LABS: Protime INR 1.17
[2019-11-22] MEDS: INSULIN -REGULAR HUMAN 50 UNIT/0.5 ML ML SQ SCH ×4 (07:30→20:37)
[2019-11-22] MEDS: lisinopriL 20 MG TAB PO SCH (08:00)
[2019-11-22] MEDS: ACETAMINOPHEN 500 MG TAB PO PRN ×2 (08:08→12:46)
[2019-11-22] MEDS: CIPROFLOXACIN HCL 500 MG TAB PO SCH ×2 (08:09→20:36)
[2019-11-22] MEDS: CRANBERRY FRUIT EXTRACT 200 MG CAP PO SCH ×2 (08:09→20:37)
[2019-11-22] MEDS: ASPIRIN 81 MG CHEWABLE TABLET PO SCH (08:09)
[2019-11-22] MEDS: FLUOXETINE 20 MG CAP PO SCH (08:09)
[2019-11-22] MEDS: NICOTINE 7 MG/PAT TD SCH (09:00)
[2019-11-22] MEDS: NYSTATIN PWDR 100000 UNIT/GM TOP SCH ×2 (09:02→20:37)
[2019-11-22] MEDS ORDERED: WARFARIN SODIUM 5 MG TAB PO ONE (15:00)
[2019-11-22] MEDS: WARFARIN SODIUM 5 MG TAB PO SCH (17:03)
[2019-11-22] MEDS: ENOXAPARIN 40 MG/0.4 ML SQ SCH (17:03)
--- NOTE | 2019-11-22 17:46 | R.PN ---
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 SUBJECTIVE: Pt denied any depression. Pt denied any Shortness of Breath. CBC with differential is essentially normal. Glucose 122 to 143. Prealbumin 27.3. UA with C and S sh owed E-Coli sensitive to Cipro. Treated with Cipro 500 mg bid for 5 days. Gait training done in the parallel bars for 32' with moderate assistance. INR 1.17 will give coumadin 10 mg today and recheck INR in the AM. VITAL SIGNS Temperature: 98.2 F SBP/DBP: 117/45 Pulse: 67 Resp: 16 MEDICATION ALLERGIES: No Known Drug Allergies (NKDA) ENVIRONMENTAL ALLERGIES: - Substance Allergies None Known - Other Allergies None Known NURSING: - Shower allowing shower - Bladder care per protocol - Skin care per protocol PRECAUTIONS: - Weight Bearing Precaution WBAT right LE ACTIVITIES OOB only with supervision THERAPIES: - Occupational Therapy Cognitive Retraining. Visual Perceptual Training. - Dietary and Nutrition Adequate Nutrition. Nutritional Education. Nutritional Supplements. - Speech Therapy Cognitive Training. Expressive Language Skills. Memory Strategies. Receptive Language Skills. Speech Intelligibility Training. PHYSICAL EXAM - Gen Alert and awake Lying in bed No apparent distress Oriented to: person, time, and place - Skin No breakdown No abnormalities - Eyes No abnormalities - ENMT No abnormalities - Neck No abnormalities - CVS RRR - Chest No abnormalities - Abd Soft - GI Non distended Deferred - No abnormalities - Ext Mild right lower extremity edema. - MSK 0/5 weakness in right lower extremity, 4/5 right upper extremity strength. - Neuro 0/5 weakness in right lower extremity, 4/5 right upper extremity strength. - Psych No abnormalities ASSESSMENT: Currently, he has deficits of Locomotion, Balance, Transfers Control, Sphincter Control, and Enduranc e.On 11/06/2019 Pt. presented to [facility] with sudden onset of right-side weakness.On 0 he was admitted to [facility] with diagnosis Left hemispheric STROKE.His impairment category is Stroke 01 - Right Body (Left Brain) (01.2).Pt. is now referred to [facility] for acute in-patient rehabilitation in order to maximize patient's functional independence in activi ties of daily living, strength, ROM, and mobility.Pre-morbidly, Pt. was independent/mod-I in Locomoti on, Safety Awareness, Social Cognition, Balance, Transfers Control, Self-Care, and Communication; and he had good Sphincter Control and Endurance.Pt. is a 74 yo Right-handed male of unknown race.- Rehab Goal Patient has realistic goal of being discharged at assistance level 7-Ind to reside at Home with Pt s elf. MDM/PLAN: - Physical Therapy Edema - to improve, our physical therapists will perform initial evaluation of pt's status upon admi ssion and devise an individualized program for Elevation Training, and Lymphedema Therapy Gait dysfunction - to improve, our physical therapists will perform initial evaluation of pt's statu s upon admission and devise an individualized program for Gait Training, and Wheel Chair mobility Inability to transfer - to improve, our physical therapists will perform initial evaluation of pt's status upon admission and devise an individualized program for Bed mobility Need for home safety evaluation - to improve, our physical therapists will perform initial evaluatio n of pt's status upon admission and devise an individualized program for Home Evaluation Need in caregiver upon discharge - to improve, our physical therapists will perform initial evaluati on of pt's status upon admission and devise an individualized program for Caregiver Training New precaution - to improve, our physical therapists will perform initial evaluation of pt's status upon admission and devise an individualized program for Patient precaution education Poor balance - to improve, our physical therapists will perform initial evaluation of pt's status up on admission and devise an individualized program for Balance Training Poor endurance - to improve, our physical therapists will perform initial evaluation of pt's status upon admission and devise an individualized program for Endurance Training Weakness - to improve, our physical therapists will perform initial evaluation of pt's status upon a dmission and devise an individualized program for Aquatic Therapy, Neuromuscular Reeducation, and Str engthening - Occupational Therapy Need for life care planner - to improve, our occupation therapists will perform initial evaluation of pt's status upon admission and devise an individualized program for Caregiver Training Weakness - to improve, our occupation therapists will perform initial evaluation of pt's status upon admission and devise an individualized program for Aquatic Therapy, Balance, Endurance, UE ROM, and UE strengthening - Cognition - orientation for aphasia - Dressing Status: dep for ADL deficits - Grooming Status: min for ADL deficits - Toilet Transfer Status: dep for ADL deficits - Bed to Chair Transfer squat pivot transfer Status: dep for ADL deficits - Tub Transfer Status: dep for ADL deficits - Shower Transfer Status: dep for ADL deficits - Wheel Chair to Bed Transfer Status: dep for ADL deficits - Other See attached MAR (Medication Administration Record) - Diet Type Continue Regular - Diet - Liquid Texture Continue Regular - Tube Feed Continue N/A - Bladder care per protocol - Weight Bearing Precaution WBAT right LE - Skin care per protocol - Diet - Solid Texture Continue Regular - Shower allowing shower for Dementia, TBI, Stroke, or others - Balance for Weakness - Bed mobility for ADL deficits - Eating for ADL deficits - Hygiene for ADL deficits FUNCTIONAL STATUS: UPDATED AT WEEKLY TEAM CONFERENCE - Bladder Same accident frequency: 7-Ind - No accidents in the past 7 days - Bowel Same accident frequency: 7-Ind - No accidents in the past 7 days - Walking Same score based on distance walked: 0(N/A) - Wheelchair Same score based on distance traveled: 0(N/A) FUNCTIONAL STATUS: - Self-Care A. Eating Usha B. Grooming sup C. Bathing maxA D. Dressing - Upper modA E. Dressing - Lower maxA F. Toileting maxA - Sphincter Control G. Bladder control Amaury H. Bowel control Amaury - Transfers Control I. Bed/Chair/Wheelchair maxA J. Toilet maxA K. Tub/Shower maxA - Locomotion L. Walk/Wheelchair (B) maxA M. Stairs ADNO - Communication N. Comprehension (B) sup O. Expression (B) sup - Social Cognition P. Social Interaction Usha Q. Problem Solving sup R. Memory sup - Endurance Poor - Balance Poor - Safety Awareness Poor QI SCORES: - Self-Care A. Eating 03-Partial/moderate assistance B. Oral hygiene 02-Substantial/maximal assistance C. Toileting hygiene 02-Substantial/maximal assistance E. Shower/bathe self 02-Substantial/maximal assistance F. Upper body dressing 02-Substantial/maximal assistance G. Lower body dressing 02-Substantial/maximal assistance H. Putting on/taking off footwear 88-Not attempted due to medical condition or safety concerns - Mobility M. 1 step (curb) 88-Not attempted due to medical condition or safety concerns N. 4 steps 88-Not attempted due to medical condition or safety concerns O. 12 steps 88-Not attempted due to medical condition or safety concerns P. Picking up object 88-Not attempted due to medical condition or safety concerns R. Wheel 50 feet with two turns 88-Not attempted due to medical condition or safety concerns A. Roll left and right 03-Partial/moderate assistance B. Sit to lying 03-Partial/moderate assistance C. Lying to sitting on side of bed 03-Partial/moderate assistance D. Sit to stand 02-Substantial/maximal assistance E. Chair/[id number] transfer 02-Substantial/maximal assistance F. Toilet transfer 88-Not attempted due to medical condition or safety concerns G. Car transfer 88-Not attempted due to medical condition or safety concerns I. Walk 10 feet 88-Not attempted due to medical condition or safety concerns J. Walk 50 feet with two turns 88-Not attempted due to medical condition or safety concerns K. Walk 150 feet 88-Not attempted due to medical condition or safety concerns L. Walking 10 feet on uneven surfaces 88-Not attempted due to medical condition or safety concerns S. Wheel 150 feet 88-Not attempted due to medical condition or safety concerns - Bladder and Bowel Bladder continence Bowel continence - Endurance Fair - Balance Fair - Safety Awareness Fair CURRENT [facility]. DEFICITS: Endurance, Balance, Self-Care, Safety Awareness, and Mobility SIGNATURE PANEL: (CDT)
[2019-11-22] MEDS: MELATONIN 3 MG TABLET PO PRN (20:36)
[2019-11-22] MEDS: ATORVASTATIN 20 MG TAB PO SCH (20:37)
[2019-11-23] MEDS: carvediloL 3.125 MG TAB PO SCH ×2 (05:01→17:06)
[2019-11-23 06:08] LABS: Absolute Lymphocytes (CBC) 1.2 K/uL (0.7-4.9); Basophils % 0.6 % (0-1.3); Hematocrit 35.1 % (39.6-49.0); Lymphocytes % 18.1 % (15.3-44.8); MPV 9.6 fL (7.6-11.3); RBC Red Blood Cell Count 4.18 M/uL (4.33-5.43)
[2019-11-23 06:10] LABS: Protime INR 1.32
[2019-11-23] MEDS: PANTOPRAZOLE 40MG TABLET PO SCH (06:17)
[2019-11-23 06:34] LABS: Albumin 2.7 g/dL (3.4-5.0); Magnesium 2.3 mg/dL (1.8-2.4); Potassium 4.1 mmol/L (3.5-5.1); Prealbumin 23.6 mg/dL (20-40)
[2019-11-23] MEDS: INSULIN -REGULAR HUMAN 50 UNIT/0.5 ML ML SQ SCH ×4 (07:21→19:59)
[2019-11-23] MEDS: NYSTATIN PWDR 100000 UNIT/GM TOP SCH ×2 (08:00→20:00)
[2019-11-23] MEDS: ACETAMINOPHEN 500 MG TAB PO PRN (08:04)
[2019-11-23] MEDS: NICOTINE 7 MG/PAT TD SCH (08:05)
[2019-11-23] MEDS: ASPIRIN 81 MG CHEWABLE TABLET PO SCH (08:06)
[2019-11-23] MEDS: lisinopriL 20 MG TAB PO SCH (08:06)
[2019-11-23] MEDS: FLUOXETINE 20 MG CAP PO SCH (08:06)
[2019-11-23] MEDS: CIPROFLOXACIN HCL 500 MG TAB PO SCH ×2 (08:06→20:30)
[2019-11-23] MEDS: CRANBERRY FRUIT EXTRACT 200 MG CAP PO SCH ×2 (08:06→20:29)
[2019-11-23] MEDS: ENOXAPARIN 40 MG/0.4 ML SQ SCH (17:06)
[2019-11-23] MEDS: WARFARIN SODIUM 5 MG TAB PO SCH (17:06)
[2019-11-23] MEDS ORDERED: WARFARIN SODIUM 5 MG TAB PO ONE (18:00)
[2019-11-23] MEDS: ATORVASTATIN 20 MG TAB PO SCH (20:30)
[2019-11-24] MEDS: carvediloL 3.125 MG TAB PO SCH ×2 (05:32→17:35)
[2019-11-24] MEDS: PANTOPRAZOLE 40MG TABLET PO SCH (05:34)
[2019-11-24 06:30] LABS: Protime INR 1.49
[2019-11-24] MEDS: INSULIN -REGULAR HUMAN 50 UNIT/0.5 ML ML SQ SCH ×4 (07:30→20:06)
[2019-11-24] MEDS: lisinopriL 20 MG TAB PO SCH (07:42)
[2019-11-24] MEDS: DOCUSATE NA/SENNA CONC 1 TAB PO PRN (07:42)
[2019-11-24] MEDS: ASPIRIN 81 MG CHEWABLE TABLET PO SCH (07:42)
[2019-11-24] MEDS: FLUOXETINE 20 MG CAP PO SCH (07:42)
[2019-11-24] MEDS: CRANBERRY FRUIT EXTRACT 200 MG CAP PO SCH ×2 (07:43→19:52)
[2019-11-24] MEDS: CIPROFLOXACIN HCL 500 MG TAB PO SCH ×2 (07:43→19:52)
[2019-11-24] MEDS: NICOTINE 7 MG/PAT TD SCH (07:44)
[2019-11-24] MEDS: NYSTATIN PWDR 100000 UNIT/GM TOP SCH ×2 (07:44→19:51)
--- NOTE | 2019-11-24 09:32 | P.RH.PN ---
Estimated Length of Stay: 24 Expected Discharge Date: 12/09/19 Discharge Disposition Plan: Home Family Support: Yes [facility] Goal: Mobility, Transfers, Self Care Vital Signs: Last Vital Signs Temp 98.1 F 11/24/19 07:50 Pulse 64 11/24/19 07:50 Resp 16 11/24/19 07:50 BP 130/54 L 11/24/19 07:50 Pulse Ox 97 11/24/19 07:50 Laboratory: Laboratory Last Values WBC 6.4 K/uL (4.3-10.9) D 11/23/19 05:51 RBC 4.18 M/uL (4.33-5.43) L 11/23/19 05:51 Hgb 12.2 g/dL (13.6-17.9) L 11/23/19 05:51 Hct 35.1 % (39.6-49.0) L 11/23/19 05:51 MCV 83.9 fL (80-100) 11/23/19 05:51 MCH 29.1 pg (27.0-35.0) 11/23/19 05:51 MCHC 34.7 g/dL (32.0-36.0) 11/23/19 05:51 RDW 14.8 % (12.1-15.2) 11/23/19 05:51 Plt Count 113 K/uL (152-406) L D 11/23/19 05:51 MPV 9.6 fL (7.6-11.3) 11/23/19 05:51 Neutrophils % 70.6 % (41.7-73.7) 11/23/19 05:51 Lymphocytes % 18.1 % (15.3-44.8) 11/23/19 05:51 Monocytes % 9.1 % (3.3-12.3) 11/23/19 05:51 Eosinophils % 1.6 % (0-4.4) 11/23/19 05:51 Basophils % 0.6 % (0-1.3) 11/23/19 05:51 Absolute Neutrophils 4.5 K/uL (1.8-8.0) 11/23/19 05:51 Absolute Lymphocytes 1.2 K/uL (0.7-4.9) 11/23/19 05:51 Absolute Monocytes 0.6 K/uL (0.1-1.3) 11/23/19 05:51 Absolute Eosinophils 0.1 K/uL (0-0.5) 11/23/19 05:51 Absolute Basophils 0.0 K/uL (0-0.5) 11/23/19 05:51 Platelet Estimate Decr 11/17/19 06:00 Giant Platelets Present 11/17/19 06:00 Morphology Comment Not seen (NOT SEEN) 11/17/19 06:00 PT 17.5 SECONDS (9.5-12.5) H 11/24/19 06:13 INR 1.49 11/24/19 06:13 Sodium 139 mmol/L (136-145) 11/23/19 05:51 Potassium 4.1 mmol/L (3.5-5.1) 11/23/19 05:51 Chloride 107 mmol/L (98-107) 11/23/19 05:51 Carbon Dioxide 25 mmol/L (21-32) 11/23/19 05:51 BUN 19 mg/dL (7-18) H 11/23/19 05:51 Creatinine 0.92 mg/dL (0.55-1.3) 11/23/19 05:51 Estimated GFR 80 mL/min (=/>90) L 11/23/19 05:51 Glucose 118 mg/dL (74-106) H 11/23/19 05:51 POC Glucose 150 mg/dL (65-120) H 11/24/19 07:06 Calcium 8.2 mg/dL (8.5-10.1) L 11/23/19 05:51 Magnesium 2.3 mg/dL (1.8-2.4) 11/23/19 05:51 Albumin 2.7 g/dL (3.4-5.0) L 11/23/19 05:51 Prealbumin 23.6 mg/dL (20-40) 11/23/19 05:51 Urine Color Yellow 11/16/19 22:25 Urine Appearance Clear 11/16/19 22:25 Urine pH 6.0 (5.0-7.0) 11/16/19 22:25 Ur Specific Grover >=1.030 (1.005-1.030) 11/16/19 22:25 Glucose (UA)(Auto) 1+ (NEG) H 11/16/19 22:25 Urine Ketones Negative (NEG) 11/16/19 22:25 Urine Blood Negative (NEG) 11/16/19 22:25 Urine Nitrite Negative (NEG) 11/16/19 22: Urine Bilirubin Negative (NEG) 11/16/19 22:25 Urine Urobilinogen 1.0 mg/dL (0.2-1.0) 11/16/19 22:25 Ur Leukocyte Esterase Negative (NEG) 11/16/19 22:25 Urine RBC <5 /HPF (NONE SEEN) 11/16/19 22:25 Urine WBC <5 /HPF (<5) 11/16/19 22:25 Ur Squamous Epith Cells 5-10 /HPF (NONE SEEN) H 11/16/19 22:25 Calcium Oxalate Crystal Many (NONE SEEN) H 11/16/19 22:25 Urine Bacteria <20 /HPF (NONE SEEN) 11/16/19 22:25 Urine Culture Reflexed Not needed 11/16/19 22: Urine Total Protein Negative (NEG) 11/16/19 22: SARS-CoV-2 RNA (RT-PCR) Negative (NEGATIVE) 11/17/19 22:00 Smear Scan Ok (OK) 11/17/19 06:00 Weight: 220 lb Wound Present: No Closed Surgical Incision Present: No Negative Pressure Wound Therapy Present: No Physician Update: His INR is 1.49. Will give coumadin 10 today and recheck in the AM. Labs otherwise stable. He is max assistance for ADLs. For balance and upper body dressiing moderate assitance and moderate assitance for showers. He is standby in parallel and walked 8'. Transfers are moderate to total assistance. Comment: Redness on the bilateral groins and buttocks,on nystatin powder. Functional Improvement: pt presents with severe strength deficits in the R LE. pt demonstrates poor trunk strength and stability. pt exhibits poor balance in both sitting and standing. pt exhibits a Pusher Syndrome to the R. pt experiences poor tolerance to functional activity due to weakness, fatigue, and reduced balance. Skilled PT services are necessary to address the above mentioned impairments and functional limitations. pt will likely require a long course of stay; however, pt retains good potential for improvement. pt is motivated and exhibits exceptional strength on the L side. Summary: Patient's care plan and director long term care goals have been reviewed and revised as necessary. Please see the Rehabilitation Signature page for all necessary signatures.
--- NOTE | 2019-11-24 10:37 | FAST ---
OT QI REPORT FORM ENCOUNTER DATE AND TIME: 11/24/2019 08:00 (CDT) NAME JEREMIE STATON DATE OF : 1945 DATE OF ADMISSION: 11/16/2019 18:41 (CDT) PHONE: AGE: 74 N# [id number] GENDER: Male ENCOUNTER PHYSICIAN: Dr. Job Duque M.D. ADMISSION DIAGNOSIS: - Stroke 01 - Right Body (Left Brain) (01.2) Left hemispheric STROKE. EATING: Not assessed/no information CODE: - ORAL HYGIENE: Not assessed/no information CODE: - TOILETING HYGIENE: Not assessed/no information CODE: - BATHING: SHOWER/BATHE SELF - STEP 1: Does the patient complete the activity by him/herself with no assistance (physical, verbal/nonverbal cueing, setup/clean-up)? No. SHOWER/BATHE SELF - STEP 2: Does the patient need only setup/clean-up assistance from one helper? No. SHOWER/BATHE SELF - STEP 3: Does the patient need only verbal/nonverbal cueing or touching/steadying/contact guard assistance fro m one helper? No. SHOWER/BATHE SELF - STEP 4: Does the patient need physical assistance - for example lifting or trunk support from one helper - wi th the helper providing less than half of the effort? Yes. 1. [id number] ADMISSION PERFORMANCE: Partial/moderate assistance CODE: 03 DRESSING - UPPER BODY: DRESSING - UPPER BODY - STEP 1: Does the patient complete the activity by him/herself with no assistance (physical, verbal/nonverbal cueing, setup/clean-up)? No. DRESSING - UPPER BODY - STEP 2: Does the patient need only setup/clean-up assistance from one helper? No. DRESSING - UPPER BODY - STEP 3: Does the patient need only verbal/nonverbal cueing or touching/steadying/contact guard assistance fro m one helper? No. DRESSING - UPPER BODY - STEP 4: Does the patient need physical assistance - for example lifting or trunk support from one helper - wi th the helper providing less than half of the effort? Yes. 1. [id number] ADMISSION PERFORMANCE: Partial/moderate assistance CODE: 03 DRESSING - LOWER BODY: DRESSING - LOWER BODY - STEP 1: Does the patient complete the activity by him/herself with no assistance (physical, verbal/nonverbal cueing, setup/clean-up)? No. DRESSING - LOWER BODY - STEP 2: Does the patient need only setup/clean-up assistance from one helper? No. DRESSING - LOWER BODY - STEP 3: Does the patient need only verbal/nonverbal cueing or touching/steadying/contact guard assistance fro m one helper? No. DRESSING - LOWER BODY - STEP 4: Does the patient need physical assistance - for example lifting or trunk support from one helper - wi th the helper providing less than half of the effort? Yes. 1. [id number] ADMISSION PERFORMANCE: Partial/moderate assistance CODE: 03 PUTTING ON/TAKING OFF FOOTWEAR: FOOTWEAR - STEP 1: Does the patient complete the activity by him/herself with no assistance (physical, verbal/nonverbal cueing, setup/clean-up)? No. FOOTWEAR - STEP 2: Does the patient need only setup/clean-up assistance from one helper? No. FOOTWEAR - STEP 3: Does the patient need only verbal/nonverbal cueing or touching/steadying/contact guard assistance fro m one helper? No. FOOTWEAR - STEP 4: Does the patient need physical assistance - for example lifting or trunk support from one helper - wi th the helper providing less than half of the effort? No. FOOTWEAR - STEP 5: Does the patient need physical assistance - for example lifting or trunk support from one helper - wi th the helper providing more than half of the effort? Yes. 1. [id number] ADMISSION PERFORMANCE: Substantial/maximal assistance CODE: 02 DOES THE PATIENT USE A WHEELCHAIR/SCOOTER? CODE: EXPR INDICATE THE TYPE OF WHEELCHAIR/SCOOTER USED: CODE: EXPR INDICATE THE TYPE OF WHEELCHAIR/SCOOTER USED: CODE: EXPR BLADDER AND BOWEL: CODE: EXPR CODE: EXPR SIGNATURE PANEL: The following modified sections: 1. [id number] Admission Performance, 1. [id number] Admission Performance, 1. [id number] Admission Performance, 1. [id number] Admission Performance were [electronically] signed by Elizabeth Celeste OT on WedNov 24 2019 10:36:58 GMT-0500 (Central Daylight Time)
[2019-11-24] MEDS ORDERED: WARFARIN SODIUM 5 MG TAB PO ONE (16:00)
[2019-11-24] MEDS: ENOXAPARIN 40 MG/0.4 ML SQ SCH (17:35)
[2019-11-24] MEDS: ATORVASTATIN 20 MG TAB PO SCH (19:51)
[2019-11-24] MEDS: MELATONIN 3 MG TABLET PO PRN (19:52)
[2019-11-25] MEDS: carvediloL 3.125 MG TAB PO SCH ×2 (05:22→17:02)
[2019-11-25 06:29] LABS: Protime INR 2.08
[2019-11-25] MEDS: INSULIN -REGULAR HUMAN 50 UNIT/0.5 ML ML SQ SCH ×4 (07:30→20:06)
[2019-11-25] MEDS: PANTOPRAZOLE 40MG TABLET PO SCH (07:42)
[2019-11-25] MEDS: ASPIRIN 81 MG CHEWABLE TABLET PO SCH (08:18)
[2019-11-25] MEDS: NICOTINE 7 MG/PAT TD SCH (08:19)
[2019-11-25] MEDS: NYSTATIN PWDR 100000 UNIT/GM TOP SCH ×2 (08:19→20:06)
[2019-11-25] MEDS: CRANBERRY FRUIT EXTRACT 200 MG CAP PO SCH ×2 (08:19→20:06)
[2019-11-25] MEDS: FLUOXETINE 20 MG CAP PO SCH (08:20)
[2019-11-25] MEDS: CIPROFLOXACIN HCL 500 MG TAB PO SCH (08:20)
[2019-11-25] MEDS: lisinopriL 20 MG TAB PO SCH (09:46)
[2019-11-25] MEDS: WARFARIN SODIUM 5 MG TAB PO SCH (17:03)
[2019-11-25] MEDS: MELATONIN 3 MG TABLET PO PRN (20:06)
[2019-11-25] MEDS: ATORVASTATIN 20 MG TAB PO SCH (20:06)
[2019-11-26] MEDS: carvediloL 3.125 MG TAB PO SCH ×2 (05:13→16:32)
[2019-11-26 07:03] LABS: Protime INR 2.11
[2019-11-26] MEDS: INSULIN -REGULAR HUMAN 50 UNIT/0.5 ML ML SQ SCH ×4 (07:30→19:48)
[2019-11-26] MEDS: PANTOPRAZOLE 40MG TABLET PO SCH (07:50)
[2019-11-26] MEDS: NICOTINE 7 MG/PAT TD SCH (08:41)
[2019-11-26] MEDS: CRANBERRY FRUIT EXTRACT 200 MG CAP PO SCH ×2 (08:42→19:48)
[2019-11-26] MEDS: FLUOXETINE 20 MG CAP PO SCH (08:43)
[2019-11-26] MEDS: lisinopriL 20 MG TAB PO SCH (08:43)
[2019-11-26] MEDS: ASPIRIN 81 MG CHEWABLE TABLET PO SCH (08:43)
[2019-11-26] MEDS: NYSTATIN PWDR 100000 UNIT/GM TOP SCH ×2 (10:00→19:48)
[2019-11-26] MEDS: ACETAMINOPHEN 500 MG TAB PO PRN (12:44)
[2019-11-26] MEDS: WARFARIN SODIUM 5 MG TAB PO SCH (16:36)
[2019-11-26] MEDS: MELATONIN 3 MG TABLET PO PRN (19:48)
[2019-11-26] MEDS: ATORVASTATIN 20 MG TAB PO SCH (19:48)
[2019-11-27] MEDS: carvediloL 3.125 MG TAB PO SCH ×2 (05:02→16:58)
[2019-11-27] MEDS: PANTOPRAZOLE 40MG TABLET PO SCH (06:22)
[2019-11-27 06:39] LABS: Protime INR 1.97
[2019-11-27] MEDS: INSULIN -REGULAR HUMAN 50 UNIT/0.5 ML ML SQ SCH ×4 (07:30→20:39)
[2019-11-27] MEDS: glipiZIDE 5 MG TAB PO SCH (07:56)
[2019-11-27] MEDS: ASPIRIN 81 MG CHEWABLE TABLET PO SCH (07:57)
[2019-11-27] MEDS: FLUOXETINE 20 MG CAP PO SCH (07:57)
[2019-11-27] MEDS: CRANBERRY FRUIT EXTRACT 200 MG CAP PO SCH ×2 (07:57→20:37)
[2019-11-27] MEDS: lisinopriL 20 MG TAB PO SCH (07:58)
[2019-11-27] MEDS: NICOTINE 7 MG/PAT TD SCH (07:59)
[2019-11-27] MEDS: ACETAMINOPHEN 500 MG TAB PO PRN ×2 (07:59→20:39)
[2019-11-27] MEDS: NYSTATIN PWDR 100000 UNIT/GM TOP SCH ×2 (09:25→20:00)
[2019-11-27] MEDS: WARFARIN SODIUM 5 MG TAB PO SCH (16:58)
--- NOTE | 2019-11-27 17:23 | R.PN ---
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 SUBJECTIVE: Pt denied any depression. Pt denied any Shortness of Breath. CBC with differential is unremarkable. Glucose 90 to 127. Prealbumin 27.3. UA with C and S showed E- Coli sensitive to Cipro. Treated with Cipro 500 mg bid for 5 days. Gait training done using a rolling walker for 3' with moderate to maximum assistance. INR 1.97, will give coumadin 5 mg daily and recheck INR in the AM. VITAL SIGNS Temperature: 97.4 F SBP/DBP: 123/46 Pulse: 63 Resp: 16 MEDICATION ALLERGIES: No Known Drug Allergies (NKDA) ENVIRONMENTAL ALLERGIES: - Substance Allergies None Known - Other Allergies None Known NURSING: - Shower allowing shower - Bladder care per protocol - Skin care per protocol PRECAUTIONS: - Weight Bearing Precaution WBAT right LE ACTIVITIES OOB only with supervision THERAPIES: - Occupational Therapy Cognitive Retraining. Visual Perceptual Training. - Dietary and Nutrition Adequate Nutrition. Nutritional Education. Nutritional Supplements. - Speech Therapy Cognitive Training. Expressive Language Skills. Memory Strategies. Receptive Language Skills. Speech Intelligibility Training. PHYSICAL EXAM - Gen Alert and awake Lying in bed No apparent distress Oriented to: person, time, and place - Skin No breakdown No abnormalities - Eyes No abnormalities - ENMT No abnormalities - Neck No abnormalities - CVS RRR - Chest No abnormalities - Abd Soft - GI Non distended Deferred - No abnormalities - Ext Mild right lower extremity edema. - MSK 0/5 weakness in right lower extremity, 4/5 right upper extremity strength. - Neuro 0/5 weakness in right lower extremity, 4/5 right upper extremity strength. - Psych No abnormalities ASSESSMENT: Currently, he has deficits of Locomotion, Balance, Transfers Control, Sphincter Control, and Enduranc e.On 11/06/2019 Pt. presented to [facility] with sudden onset of right-side weakness.On 0 he was admitted to [facility] with diagnosis Left hemispheric STROKE.His impairment category is Stroke 01 - Right Body (Left Brain) (01.2).Pt. is now referred to [facility] for acute in-patient rehabilitation in order to maximize patient's functional independence in activi ties of daily living, strength, ROM, and mobility.Pre-morbidly, Pt. was independent/mod-I in Locomoti on, Safety Awareness, Social Cognition, Balance, Transfers Control, Self-Care, and Communication; and he had good Sphincter Control and Endurance.Pt. is a 74 yo Right-handed male of unknown race.- Rehab Goal Patient has realistic goal of being discharged at assistance level 7-Ind to reside at Home with Pt s elf. MDM/PLAN: - Physical Therapy Edema - to improve, our physical therapists will perform initial evaluation of pt's status upon admi ssion and devise an individualized program for Elevation Training, and Lymphedema Therapy Gait dysfunction - to improve, our physical therapists will perform initial evaluation of pt's statu s upon admission and devise an individualized program for Gait Training, and Wheel Chair mobility Inability to transfer - to improve, our physical therapists will perform initial evaluation of pt's status upon admission and devise an individualized program for Bed mobility Need for home safety evaluation - to improve, our physical therapists will perform initial evaluatio n of pt's status upon admission and devise an individualized program for Home Evaluation Need in caregiver upon discharge - to improve, our physical therapists will perform initial evaluati on of pt's status upon admission and devise an individualized program for Caregiver Training New precaution - to improve, our physical therapists will perform initial evaluation of pt's status upon admission and devise an individualized program for Patient precaution education Poor balance - to improve, our physical therapists will perform initial evaluation of pt's status up on admission and devise an individualized program for Balance Training Poor endurance - to improve, our physical therapists will perform initial evaluation of pt's status upon admission and devise an individualized program for Endurance Training Weakness - to improve, our physical therapists will perform initial evaluation of pt's status upon a dmission and devise an individualized program for Aquatic Therapy, Neuromuscular Reeducation, and Str engthening - Occupational Therapy Need for skin care technician - to improve, our occupation therapists will perform initial evaluation of pt's status upon admission and devise an individualized program for Caregiver Training Weakness - to improve, our occupation therapists will perform initial evaluation of pt's status upon admission and devise an individualized program for Aquatic Therapy, Balance, Endurance, UE ROM, and UE strengthening - Cognition - orientation for aphasia - Dressing Status: dep for ADL deficits - Grooming Status: min for ADL deficits - Toilet Transfer Status: dep for ADL deficits - Bed to Chair Transfer squat pivot transfer Status: dep for ADL deficits - Tub Transfer Status: dep for ADL deficits - Shower Transfer Status: dep for ADL deficits - Wheel Chair to Bed Transfer Status: dep for ADL deficits - Other See attached MAR (Medication Administration Record) - Diet Type Continue Regular - Diet - Liquid Texture Continue Regular - Tube Feed Continue N/A - Bladder care per protocol - Weight Bearing Precaution WBAT right LE - Skin care per protocol - Diet - Solid Texture Continue Regular - Shower allowing shower for Dementia, TBI, Stroke, or others - Balance for Weakness - Bed mobility for ADL deficits - Eating for ADL deficits - Hygiene for ADL deficits FUNCTIONAL STATUS: UPDATED AT WEEKLY TEAM CONFERENCE - Bladder Same accident frequency: 7-Ind - No accidents in the past 7 days - Bowel Same accident frequency: 7-Ind - No accidents in the past 7 days - Walking Same score based on distance walked: 0(N/A) - Wheelchair Same score based on distance traveled: 0(N/A) FUNCTIONAL STATUS: - Self-Care A. Eating Usha B. Grooming sup C. Bathing maxA D. Dressing - Upper modA E. Dressing - Lower maxA F. Toileting maxA - Sphincter Control G. Bladder control Amaury H. Bowel control Amaury - Transfers Control I. Bed/Chair/Wheelchair maxA J. Toilet maxA K. Tub/Shower maxA - Locomotion L. Walk/Wheelchair (B) maxA M. Stairs ADNO - Communication N. Comprehension (B) sup O. Expression (B) sup - Social Cognition P. Social Interaction Usha Q. Problem Solving sup R. Memory sup - Endurance Poor - Balance Poor - Safety Awareness Poor QI SCORES: - Self-Care A. Eating 03-Partial/moderate assistance B. Oral hygiene 02-Substantial/maximal assistance C. Toileting hygiene 02-Substantial/maximal assistance E. Shower/bathe self 02-Substantial/maximal assistance F. Upper body dressing 02-Substantial/maximal assistance G. Lower body dressing 02-Substantial/maximal assistance H. Putting on/taking off footwear 88-Not attempted due to medical condition or safety concerns - Mobility M. 1 step (curb) 88-Not attempted due to medical condition or safety concerns N. 4 steps 88-Not attempted due to medical condition or safety concerns O. 12 steps 88-Not attempted due to medical condition or safety concerns P. Picking up object 88-Not attempted due to medical condition or safety concerns R. Wheel 50 feet with two turns 88-Not attempted due to medical condition or safety concerns A. Roll left and right 03-Partial/moderate assistance B. Sit to lying 03-Partial/moderate assistance C. Lying to sitting on side of bed 03-Partial/moderate assistance D. Sit to stand 02-Substantial/maximal assistance E. Chair/[id number] transfer 02-Substantial/maximal assistance F. Toilet transfer 88-Not attempted due to medical condition or safety concerns G. Car transfer 88-Not attempted due to medical condition or safety concerns I. Walk 10 feet 88-Not attempted due to medical condition or safety concerns J. Walk 50 feet with two turns 88-Not attempted due to medical condition or safety concerns K. Walk 150 feet 88-Not attempted due to medical condition or safety concerns L. Walking 10 feet on uneven surfaces 88-Not attempted due to medical condition or safety concerns S. Wheel 150 feet 88-Not attempted due to medical condition or safety concerns - Bladder and Bowel Bladder continence Bowel continence - Endurance Fair - Balance Fair - Safety Awareness Fair CURRENT [facility]. DEFICITS: Endurance, Balance, Self-Care, Safety Awareness, and Mobility SIGNATURE PANEL: (CDT)
[2019-11-27] MEDS: ATORVASTATIN 20 MG TAB PO SCH (20:38)
[2019-11-27] MEDS: MELATONIN 3 MG TABLET PO PRN (20:39)
[2019-11-28] MEDS: carvediloL 3.125 MG TAB PO SCH ×2 (05:02→17:16)
[2019-11-28 06:06] LABS: Protime INR 1.98
[2019-11-28] MEDS: CRANBERRY FRUIT EXTRACT 200 MG CAP PO SCH ×2 (07:23→19:47)
[2019-11-28] MEDS: FLUOXETINE 20 MG CAP PO SCH (07:23)
[2019-11-28] MEDS: NICOTINE 7 MG/PAT TD SCH (07:23)
[2019-11-28] MEDS: ASPIRIN 81 MG CHEWABLE TABLET PO SCH (07:23)
[2019-11-28] MEDS: glipiZIDE 5 MG TAB PO SCH (07:23)
[2019-11-28] MEDS: NYSTATIN PWDR 100000 UNIT/GM TOP SCH ×2 (07:25→19:47)
[2019-11-28] MEDS: PANTOPRAZOLE 40MG TABLET PO SCH (07:27)
[2019-11-28] MEDS: lisinopriL 20 MG TAB PO SCH (07:28)
[2019-11-28] MEDS: INSULIN -REGULAR HUMAN 50 UNIT/0.5 ML ML SQ SCH ×4 (07:30→20:00)
[2019-11-28] MEDS: WARFARIN SODIUM 5 MG TAB PO SCH (17:16)
--- NOTE | 2019-11-28 18:34 | R.PN ---
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 SUBJECTIVE: Pt denied any depression. Pt denied any Shortness of Breath. CBC with differential is unremarkable. Glucose 90 to 127. Prealbumin 27.3. UA with C and S showed E- Coli sensitive to Cipro. Treated with Cipro 500 mg bid for 5 days. Patient states that pain is under control. ADLs done with supervision to independence. INR 1.98, will give coumadin 6 mg daily and recheck INR in the AM. VITAL SIGNS Temperature: 98.4 F SBP/DBP: 133/51 Pulse: 61 Resp: 16 MEDICATION ALLERGIES: No Known Drug Allergies (NKDA) ENVIRONMENTAL ALLERGIES: - Substance Allergies None Known - Other Allergies None Known NURSING: - Shower allowing shower - Bladder care per protocol - Skin care per protocol PRECAUTIONS: - Weight Bearing Precaution WBAT right LE ACTIVITIES OOB only with supervision THERAPIES: - Occupational Therapy Cognitive Retraining. Visual Perceptual Training. - Dietary and Nutrition Adequate Nutrition. Nutritional Education. Nutritional Supplements. - Speech Therapy Cognitive Training. Expressive Language Skills. Memory Strategies. Receptive Language Skills. Speech Intelligibility Training. PHYSICAL EXAM - Gen Alert and awake Lying in bed No apparent distress Oriented to: person, time, and place - Skin No breakdown No abnormalities - Eyes No abnormalities - ENMT No abnormalities - Neck No abnormalities - CVS RRR - Chest No abnormalities - Abd Soft - GI Non distended Deferred - No abnormalities - Ext Mild right lower extremity edema. - MSK 0/5 weakness in right lower extremity, 4/5 right upper extremity strength. - Neuro 0/5 weakness in right lower extremity, 4/5 right upper extremity strength. - Psych No abnormalities ASSESSMENT: Currently, he has deficits of Locomotion, Balance, Transfers Control, Sphincter Control, and Enduranc e.On 11/06/2019 Pt. presented to [facility] with sudden onset of right-side weakness.On 0 he was admitted to [facility] with diagnosis Left hemispheric STROKE.His impairment category is Stroke 01 - Right Body (Left Brain) (01.2).Pt. is now referred to [facility] for acute in-patient rehabilitation in order to maximize patient's functional independence in activi ties of daily living, strength, ROM, and mobility.Pre-morbidly, Pt. was independent/mod-I in Locomoti on, Safety Awareness, Social Cognition, Balance, Transfers Control, Self-Care, and Communication; and he had good Sphincter Control and Endurance.Pt. is a 74 yo Right-handed male of unknown race.- Rehab Goal Patient has realistic goal of being discharged at assistance level 7-Ind to reside at Home with Pt s elf. MDM/PLAN: - Physical Therapy Edema - to improve, our physical therapists will perform initial evaluation of pt's status upon admi ssion and devise an individualized program for Elevation Training, and Lymphedema Therapy Gait dysfunction - to improve, our physical therapists will perform initial evaluation of pt's statu s upon admission and devise an individualized program for Gait Training, and Wheel Chair mobility Inability to transfer - to improve, our physical therapists will perform initial evaluation of pt's status upon admission and devise an individualized program for Bed mobility Need for home safety evaluation - to improve, our physical therapists will perform initial evaluatio n of pt's status upon admission and devise an individualized program for Home Evaluation Need in caregiver upon discharge - to improve, our physical therapists will perform initial evaluati on of pt's status upon admission and devise an individualized program for Caregiver Training New precaution - to improve, our physical therapists will perform initial evaluation of pt's status upon admission and devise an individualized program for Patient precaution education Poor balance - to improve, our physical therapists will perform initial evaluation of pt's status up on admission and devise an individualized program for Balance Training Poor endurance - to improve, our physical therapists will perform initial evaluation of pt's status upon admission and devise an individualized program for Endurance Training Weakness - to improve, our physical therapists will perform initial evaluation of pt's status upon a dmission and devise an individualized program for Aquatic Therapy, Neuromuscular Reeducation, and Str engthening - Occupational Therapy Need for home child care provider - to improve, our occupation therapists will perform initial evaluation of pt's status upon admission and devise an individualized program for Caregiver Training Weakness - to improve, our occupation therapists will perform initial evaluation of pt's status upon admission and devise an individualized program for Aquatic Therapy, Balance, Endurance, UE ROM, and UE strengthening - Cognition - orientation for aphasia - Dressing Status: dep for ADL deficits - Grooming Status: min for ADL deficits - Toilet Transfer Status: dep for ADL deficits - Bed to Chair Transfer squat pivot transfer Status: dep for ADL deficits - Tub Transfer Status: dep for ADL deficits - Shower Transfer Status: dep for ADL deficits - Wheel Chair to Bed Transfer Status: dep for ADL deficits - Other See attached MAR (Medication Administration Record) - Diet Type Continue Regular - Diet - Liquid Texture Continue Regular - Tube Feed Continue N/A - Bladder care per protocol - Weight Bearing Precaution WBAT right LE - Skin care per protocol - Diet - Solid Texture Continue Regular - Shower allowing shower for Dementia, TBI, Stroke, or others - Balance for Weakness - Bed mobility for ADL deficits - Eating for ADL deficits - Hygiene for ADL deficits FUNCTIONAL STATUS: UPDATED AT WEEKLY TEAM CONFERENCE - Bladder Same accident frequency: 7-Ind - No accidents in the past 7 days - Bowel Same accident frequency: 7-Ind - No accidents in the past 7 days - Walking Same score based on distance walked: 0(N/A) - Wheelchair Same score based on distance traveled: 0(N/A) FUNCTIONAL STATUS: - Self-Care A. Eating Usha B. Grooming sup C. Bathing maxA D. Dressing - Upper modA E. Dressing - Lower maxA F. Toileting maxA - Sphincter Control G. Bladder control Amaury H. Bowel control Amaury - Transfers Control I. Bed/Chair/Wheelchair maxA J. Toilet maxA K. Tub/Shower maxA - Locomotion L. Walk/Wheelchair (B) maxA M. Stairs ADNO - Communication N. Comprehension (B) sup O. Expression (B) sup - Social Cognition P. Social Interaction Usha Q. Problem Solving sup R. Memory sup - Endurance Poor - Balance Poor - Safety Awareness Poor QI SCORES: - Self-Care A. Eating 03-Partial/moderate assistance B. Oral hygiene 02-Substantial/maximal assistance C. Toileting hygiene 02-Substantial/maximal assistance E. Shower/bathe self 02-Substantial/maximal assistance F. Upper body dressing 02-Substantial/maximal assistance G. Lower body dressing 02-Substantial/maximal assistance H. Putting on/taking off footwear 88-Not attempted due to medical condition or safety concerns - Mobility M. 1 step (curb) 88-Not attempted due to medical condition or safety concerns N. 4 steps 88-Not attempted due to medical condition or safety concerns O. 12 steps 88-Not attempted due to medical condition or safety concerns P. Picking up object 88-Not attempted due to medical condition or safety concerns R. Wheel 50 feet with two turns 88-Not attempted due to medical condition or safety concerns A. Roll left and right 03-Partial/moderate assistance B. Sit to lying 03-Partial/moderate assistance C. Lying to sitting on side of bed 03-Partial/moderate assistance D. Sit to stand 02-Substantial/maximal assistance E. Chair/[id number] transfer 02-Substantial/maximal assistance F. Toilet transfer 88-Not attempted due to medical condition or safety concerns G. Car transfer 88-Not attempted due to medical condition or safety concerns I. Walk 10 feet 88-Not attempted due to medical condition or safety concerns J. Walk 50 feet with two turns 88-Not attempted due to medical condition or safety concerns K. Walk 150 feet 88-Not attempted due to medical condition or safety concerns L. Walking 10 feet on uneven surfaces 88-Not attempted due to medical condition or safety concerns S. Wheel 150 feet 88-Not attempted due to medical condition or safety concerns - Bladder and Bowel Bladder continence Bowel continence - Endurance Fair - Balance Fair - Safety Awareness Fair CURRENT [facility]. DEFICITS: Endurance, Balance, Self-Care, Safety Awareness, and Mobility SIGNATURE PANEL: (CDT)
[2019-11-28] MEDS: MELATONIN 3 MG TABLET PO PRN (19:59)
[2019-11-28] MEDS: ATORVASTATIN 20 MG TAB PO SCH (19:59)
[2019-11-29] MEDS: carvediloL 3.125 MG TAB PO SCH ×2 (05:32→18:25)
[2019-11-29] MEDS: PANTOPRAZOLE 40MG TABLET PO SCH (06:43)
[2019-11-29 06:53] LABS: Protime INR 1.7
[2019-11-29] MEDS: INSULIN -REGULAR HUMAN 50 UNIT/0.5 ML ML SQ SCH ×4 (07:30→20:43)
[2019-11-29] MEDS: CRANBERRY FRUIT EXTRACT 200 MG CAP PO SCH ×2 (07:47→20:32)
[2019-11-29] MEDS: NYSTATIN PWDR 100000 UNIT/GM TOP SCH ×2 (07:47→20:33)
[2019-11-29] MEDS: FLUOXETINE 20 MG CAP PO SCH (07:47)
[2019-11-29] MEDS: ASPIRIN 81 MG CHEWABLE TABLET PO SCH (07:47)
[2019-11-29] MEDS: NICOTINE 7 MG/PAT TD SCH ×2 (07:47→08:00)
[2019-11-29] MEDS: glipiZIDE 5 MG TAB PO SCH (07:48)
[2019-11-29] MEDS: lisinopriL 20 MG TAB PO SCH (07:48)
[2019-11-29] MEDS ORDERED: WARFARIN SODIUM 4 MG TAB PO ONE (18:00)
--- NOTE | 2019-11-29 18:00 | R.PN ---
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 SUBJECTIVE: Pt denied any depression. Pt denied any Shortness of Breath. CBC with differential is unremarkable. Glucose 90 to 127. Prealbumin 27.3. UA with C and S showed E- Coli sensitive to Cipro. Treated with Cipro 500 mg bid for 5 days. Patient states that pain is under control. ADLs done with supervision to independence. Ambulated 250' with standby assistance using a rolling walker. INR 1.70, will give coumadin 10 mg today then 6 daily and recheck INR in the AM. VITAL SIGNS Temperature: 97.4 F SBP/DBP: 124/51 Pulse: 61 Resp: 16 MEDICATION ALLERGIES: No Known Drug Allergies (NKDA) ENVIRONMENTAL ALLERGIES: - Substance Allergies None Known - Other Allergies None Known NURSING: - Shower allowing shower - Bladder care per protocol - Skin care per protocol PRECAUTIONS: - Weight Bearing Precaution WBAT right LE ACTIVITIES OOB only with supervision THERAPIES: - Occupational Therapy Cognitive Retraining. Visual Perceptual Training. - Dietary and Nutrition Adequate Nutrition. Nutritional Education. Nutritional Supplements. - Speech Therapy Cognitive Training. Expressive Language Skills. Memory Strategies. Receptive Language Skills. Speech Intelligibility Training. PHYSICAL EXAM - Gen Alert and awake Lying in bed No apparent distress Oriented to: person, time, and place - Skin No breakdown No abnormalities - Eyes No abnormalities - ENMT No abnormalities - Neck No abnormalities - CVS RRR - Chest No abnormalities - Abd Soft - GI Non distended Deferred - No abnormalities - Ext Mild right lower extremity edema. - MSK 0/5 weakness in right lower extremity, 4/5 right upper extremity strength. - Neuro 0/5 weakness in right lower extremity, 4/5 right upper extremity strength. - Psych No abnormalities ASSESSMENT: Currently, he has deficits of Locomotion, Balance, Transfers Control, Sphincter Control, and Enduranc e.On 11/06/2019 Pt. presented to [facility] with sudden onset of right-side weakness.On 0 he was admitted to [facility] with diagnosis Left hemispheric STROKE.His impairment category is Stroke 01 - Right Body (Left Brain) (01.2).Pt. is now referred to [facility] for acute in-patient rehabilitation in order to maximize patient's functional independence in activi ties of daily living, strength, ROM, and mobility.Pre-morbidly, Pt. was independent/mod-I in Locomoti on, Safety Awareness, Social Cognition, Balance, Transfers Control, Self-Care, and Communication; and he had good Sphincter Control and Endurance.Pt. is a 74 yo Right-handed male of unknown race.- Rehab Goal Patient has realistic goal of being discharged at assistance level 7-Ind to reside at Home with Pt s elf. MDM/PLAN: - Physical Therapy Edema - to improve, our physical therapists will perform initial evaluation of pt's status upon admi ssion and devise an individualized program for Elevation Training, and Lymphedema Therapy Gait dysfunction - to improve, our physical therapists will perform initial evaluation of pt's statu s upon admission and devise an individualized program for Gait Training, and Wheel Chair mobility Inability to transfer - to improve, our physical therapists will perform initial evaluation of pt's status upon admission and devise an individualized program for Bed mobility Need for home safety evaluation - to improve, our physical therapists will perform initial evaluatio n of pt's status upon admission and devise an individualized program for Home Evaluation Need in caregiver upon discharge - to improve, our physical therapists will perform initial evaluati on of pt's status upon admission and devise an individualized program for Caregiver Training New precaution - to improve, our physical therapists will perform initial evaluation of pt's status upon admission and devise an individualized program for Patient precaution education Poor balance - to improve, our physical therapists will perform initial evaluation of pt's status up on admission and devise an individualized program for Balance Training Poor endurance - to improve, our physical therapists will perform initial evaluation of pt's status upon admission and devise an individualized program for Endurance Training Weakness - to improve, our physical therapists will perform initial evaluation of pt's status upon a dmission and devise an individualized program for Aquatic Therapy, Neuromuscular Reeducation, and Str engthening - Occupational Therapy Need for nurse wound care - to improve, our occupation therapists will perform initial evaluation of pt's status upon admission and devise an individualized program for Caregiver Training Weakness - to improve, our occupation therapists will perform initial evaluation of pt's status upon admission and devise an individualized program for Aquatic Therapy, Balance, Endurance, UE ROM, and UE strengthening - Cognition - orientation for aphasia - Dressing Status: dep for ADL deficits - Grooming Status: min for ADL deficits - Toilet Transfer Status: dep for ADL deficits - Bed to Chair Transfer squat pivot transfer Status: dep for ADL deficits - Tub Transfer Status: dep for ADL deficits - Shower Transfer Status: dep for ADL deficits - Wheel Chair to Bed Transfer Status: dep for ADL deficits - Other See attached MAR (Medication Administration Record) - Diet Type Continue Regular - Diet - Liquid Texture Continue Regular - Tube Feed Continue N/A - Bladder care per protocol - Weight Bearing Precaution WBAT right LE - Skin care per protocol - Diet - Solid Texture Continue Regular - Shower allowing shower for Dementia, TBI, Stroke, or others - Balance for Weakness - Bed mobility for ADL deficits - Eating for ADL deficits - Hygiene for ADL deficits FUNCTIONAL STATUS: UPDATED AT WEEKLY TEAM CONFERENCE - Bladder Same accident frequency: 7-Ind - No accidents in the past 7 days - Bowel Same accident frequency: 7-Ind - No accidents in the past 7 days - Walking Same score based on distance walked: 0(N/A) - Wheelchair Same score based on distance traveled: 0(N/A) FUNCTIONAL STATUS: - Self-Care A. Eating Usha B. Grooming sup C. Bathing maxA D. Dressing - Upper modA E. Dressing - Lower maxA F. Toileting maxA - Sphincter Control G. Bladder control Amaury H. Bowel control Amaury - Transfers Control I. Bed/Chair/Wheelchair maxA J. Toilet maxA K. Tub/Shower maxA - Locomotion L. Walk/Wheelchair (B) maxA M. Stairs ADNO - Communication N. Comprehension (B) sup O. Expression (B) sup - Social Cognition P. Social Interaction Usha Q. Problem Solving sup R. Memory sup - Endurance Poor - Balance Poor - Safety Awareness Poor QI SCORES: - Self-Care A. Eating 03-Partial/moderate assistance B. Oral hygiene 02-Substantial/maximal assistance C. Toileting hygiene 02-Substantial/maximal assistance E. Shower/bathe self 02-Substantial/maximal assistance F. Upper body dressing 02-Substantial/maximal assistance G. Lower body dressing 02-Substantial/maximal assistance H. Putting on/taking off footwear 88-Not attempted due to medical condition or safety concerns - Mobility M. 1 step (curb) 88-Not attempted due to medical condition or safety concerns N. 4 steps 88-Not attempted due to medical condition or safety concerns O. 12 steps 88-Not attempted due to medical condition or safety concerns P. Picking up object 88-Not attempted due to medical condition or safety concerns R. Wheel 50 feet with two turns 88-Not attempted due to medical condition or safety concerns A. Roll left and right 03-Partial/moderate assistance B. Sit to lying 03-Partial/moderate assistance C. Lying to sitting on side of bed 03-Partial/moderate assistance D. Sit to stand 02-Substantial/maximal assistance E. Chair/gof-nx-gqnld transfer 02-Substantial/maximal assistance F. Toilet transfer 88-Not attempted due to medical condition or safety concerns G. Car transfer 88-Not attempted due to medical condition or safety concerns I. Walk 10 feet 88-Not attempted due to medical condition or safety concerns J. Walk 50 feet with two turns 88-Not attempted due to medical condition or safety concerns K. Walk 150 feet 88-Not attempted due to medical condition or safety concerns L. Walking 10 feet on uneven surfaces 88-Not attempted due to medical condition or safety concerns S. Wheel 150 feet 88-Not attempted due to medical condition or safety concerns - Bladder and Bowel Bladder continence Bowel continence - Endurance Fair - Balance Fair - Safety Awareness Fair CURRENT [facility]. DEFICITS: Endurance, Balance, Self-Care, Safety Awareness, and Mobility SIGNATURE PANEL: (CDT)
[2019-11-29] MEDS: WARFARIN SODIUM 6 MG TAB PO SCH (18:24)
[2019-11-29] MEDS: MELATONIN 3 MG TABLET PO PRN (20:32)
[2019-11-29] MEDS: ATORVASTATIN 20 MG TAB PO SCH (20:32)
[2019-11-30] MEDS: carvediloL 3.125 MG TAB PO SCH ×2 (05:10→16:58)
[2019-11-30 06:47] LABS: Protime INR 1.69
[2019-11-30 06:52] LABS: Absolute Lymphocytes (CBC) 1.4 K/uL (0.7-4.9); Basophils % 0.5 % (0-1.3); Hematocrit 33.5 % (39.6-49.0); Lymphocytes % 24.7 % (15.3-44.8); MPV 9.3 fL (7.6-11.3); RBC Red Blood Cell Count 3.99 M/uL (4.33-5.43)
[2019-11-30 07:06] LABS: Albumin 2.7 g/dL (3.4-5.0); Magnesium 2.1 mg/dL (1.8-2.4); Prealbumin 21.8 mg/dL (20-40)
[2019-11-30] MEDS: INSULIN -REGULAR HUMAN 50 UNIT/0.5 ML ML SQ SCH ×4 (07:30→20:00)
[2019-11-30] MEDS: PANTOPRAZOLE 40MG TABLET PO SCH (07:49)
[2019-11-30] MEDS: FLUOXETINE 20 MG CAP PO SCH (07:55)
[2019-11-30] MEDS: CRANBERRY FRUIT EXTRACT 200 MG CAP PO SCH ×2 (07:55→20:00)
[2019-11-30] MEDS: ACETAMINOPHEN 500 MG TAB PO PRN (07:56)
[2019-11-30] MEDS: ASPIRIN 81 MG CHEWABLE TABLET PO SCH (07:56)
[2019-11-30] MEDS: lisinopriL 20 MG TAB PO SCH (07:56)
[2019-11-30] MEDS: glipiZIDE 5 MG TAB PO SCH (07:56)
[2019-11-30] MEDS: NICOTINE 7 MG/PAT TD SCH (08:00)
[2019-11-30] MEDS: NYSTATIN PWDR 100000 UNIT/GM TOP SCH ×2 (08:58→20:00)
[2019-11-30] MEDS: WARFARIN SODIUM 6 MG TAB PO SCH (16:58)
--- NOTE | 2019-11-30 17:32 | R.PN ---
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 SUBJECTIVE: Pt denied any depression. Pt denied any Shortness of Breath. CBC with differential is unremarkable except Hgb of 11.5. Glucose 90 to 127. Prealbumin 27.3. UA with C and S showed E-Coli sensitive to Cipro. Treated with Cipro 500 mg bid for 5 days. Patient states that pain is under control. ADLs done with supervision to independence. Ambulated 55' with moderate assistance using a rolling walker. INR 1.69, will give coumadin 10 mg today then recheck INR in the AM. VITAL SIGNS Temperature: 97.1 F SBP/DBP: 124/49 Pulse: 59 Resp: 16 MEDICATION ALLERGIES: No Known Drug Allergies (NKDA) ENVIRONMENTAL ALLERGIES: - Substance Allergies None Known - Other Allergies None Known NURSING: - Shower allowing shower - Bladder care per protocol - Skin care per protocol PRECAUTIONS: - Weight Bearing Precaution WBAT right LE ACTIVITIES OOB only with supervision THERAPIES: - Occupational Therapy Cognitive Retraining. Visual Perceptual Training. - Dietary and Nutrition Adequate Nutrition. Nutritional Education. Nutritional Supplements. - Speech Therapy Cognitive Training. Expressive Language Skills. Memory Strategies. Receptive Language Skills. Speech Intelligibility Training. PHYSICAL EXAM - Gen Alert and awake Lying in bed No apparent distress Oriented to: person, time, and place - Skin No breakdown No abnormalities - Eyes No abnormalities - ENMT No abnormalities - Neck No abnormalities - CVS RRR - Chest No abnormalities - Abd Soft - GI Non distended Deferred - No abnormalities - Ext Mild right lower extremity edema. - MSK 0/5 weakness in right lower extremity, 4/5 right upper extremity strength. - Neuro 0/5 weakness in right lower extremity, 4/5 right upper extremity strength. - Psych No abnormalities ASSESSMENT: Currently, he has deficits of Locomotion, Balance, Transfers Control, Sphincter Control, and Enduranc e.On 11/06/2019 Pt. presented to [facility] with sudden onset of right-side weakness.On 0 he was admitted to [facility] with diagnosis Left hemispheric STROKE.His impairment category is Stroke 01 - Right Body (Left Brain) (01.2).Pt. is now referred to [facility] for acute in-patient rehabilitation in order to maximize patient's functional independence in activi ties of daily living, strength, ROM, and mobility.Pre-morbidly, Pt. was independent/mod-I in Locomoti on, Safety Awareness, Social Cognition, Balance, Transfers Control, Self-Care, and Communication; and he had good Sphincter Control and Endurance.Pt. is a 74 yo Right-handed male of unknown race.- Rehab Goal Patient has realistic goal of being discharged at assistance level 7-Ind to reside at Home with Pt s elf. MDM/PLAN: - Physical Therapy Edema - to improve, our physical therapists will perform initial evaluation of pt's status upon admi ssion and devise an individualized program for Elevation Training, and Lymphedema Therapy Gait dysfunction - to improve, our physical therapists will perform initial evaluation of pt's statu s upon admission and devise an individualized program for Gait Training, and Wheel Chair mobility Inability to transfer - to improve, our physical therapists will perform initial evaluation of pt's status upon admission and devise an individualized program for Bed mobility Need for home safety evaluation - to improve, our physical therapists will perform initial evaluatio n of pt's status upon admission and devise an individualized program for Home Evaluation Need in caregiver upon discharge - to improve, our physical therapists will perform initial evaluati on of pt's status upon admission and devise an individualized program for Caregiver Training New precaution - to improve, our physical therapists will perform initial evaluation of pt's status upon admission and devise an individualized program for Patient precaution education Poor balance - to improve, our physical therapists will perform initial evaluation of pt's status up on admission and devise an individualized program for Balance Training Poor endurance - to improve, our physical therapists will perform initial evaluation of pt's status upon admission and devise an individualized program for Endurance Training Weakness - to improve, our physical therapists will perform initial evaluation of pt's status upon a dmission and devise an individualized program for Aquatic Therapy, Neuromuscular Reeducation, and Str engthening - Occupational Therapy 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 - to improve, our occupation therapists will perform initial evaluation of pt's status upon admission and devise an individualized program for Caregiver Training Weakness - to improve, our occupation therapists will perform initial evaluation of pt's status upon admission and devise an individualized program for Aquatic Therapy, Balance, Endurance, UE ROM, and UE strengthening - Cognition - orientation for aphasia - Dressing Status: dep for ADL deficits - Grooming Status: min for ADL deficits - Toilet Transfer Status: dep for ADL deficits - Bed to Chair Transfer squat pivot transfer Status: dep for ADL deficits - Tub Transfer Status: dep for ADL deficits - Shower Transfer Status: dep for ADL deficits - Wheel Chair to Bed Transfer Status: dep for ADL deficits - Other See attached MAR (Medication Administration Record) - Diet Type Continue Regular - Diet - Liquid Texture Continue Regular - Tube Feed Continue N/A - Bladder care per protocol - Weight Bearing Precaution WBAT right LE - Skin care per protocol - Diet - Solid Texture Continue Regular - Shower allowing shower for Dementia, TBI, Stroke, or others - Balance for Weakness - Bed mobility for ADL deficits - Eating for ADL deficits - Hygiene for ADL deficits FUNCTIONAL STATUS: UPDATED AT WEEKLY TEAM CONFERENCE - Bladder Same accident frequency: 7-Ind - No accidents in the past 7 days - Bowel Same accident frequency: 7-Ind - No accidents in the past 7 days - Walking Same score based on distance walked: 0(N/A) - Wheelchair Same score based on distance traveled: 0(N/A) FUNCTIONAL STATUS: - Self-Care A. Eating Usha B. Grooming sup C. Bathing maxA D. Dressing - Upper modA E. Dressing - Lower maxA F. Toileting maxA - Sphincter Control G. Bladder control Amaury H. Bowel control Amaury - Transfers Control I. Bed/Chair/Wheelchair maxA J. Toilet maxA K. Tub/Shower maxA - Locomotion L. Walk/Wheelchair (B) maxA M. Stairs ADNO - Communication N. Comprehension (B) sup O. Expression (B) sup - Social Cognition P. Social Interaction Usha Q. Problem Solving sup R. Memory sup - Endurance Poor - Balance Poor - Safety Awareness Poor QI SCORES: - Self-Care A. Eating 03-Partial/moderate assistance B. Oral hygiene 02-Substantial/maximal assistance C. Toileting hygiene 02-Substantial/maximal assistance E. Shower/bathe self 02-Substantial/maximal assistance F. Upper body dressing 02-Substantial/maximal assistance G. Lower body dressing 02-Substantial/maximal assistance H. Putting on/taking off footwear 88-Not attempted due to medical condition or safety concerns - Mobility M. 1 step (curb) 88-Not attempted due to medical condition or safety concerns N. 4 steps 88-Not attempted due to medical condition or safety concerns O. 12 steps 88-Not attempted due to medical condition or safety concerns P. Picking up object 88-Not attempted due to medical condition or safety concerns R. Wheel 50 feet with two turns 88-Not attempted due to medical condition or safety concerns A. Roll left and right 03-Partial/moderate assistance B. Sit to lying 03-Partial/moderate assistance C. Lying to sitting on side of bed 03-Partial/moderate assistance D. Sit to stand 02-Substantial/maximal assistance E. Chair/lyj-sw-xwpyo transfer 02-Substantial/maximal assistance F. Toilet transfer 88-Not attempted due to medical condition or safety concerns G. Car transfer 88-Not attempted due to medical condition or safety concerns I. Walk 10 feet 88-Not attempted due to medical condition or safety concerns J. Walk 50 feet with two turns 88-Not attempted due to medical condition or safety concerns K. Walk 150 feet 88-Not attempted due to medical condition or safety concerns L. Walking 10 feet on uneven surfaces 88-Not attempted due to medical condition or safety concerns S. Wheel 150 feet 88-Not attempted due to medical condition or safety concerns - Bladder and Bowel Bladder continence Bowel continence - Endurance Fair - Balance Fair - Safety Awareness Fair CURRENT [facility]. DEFICITS: Endurance, Balance, Self-Care, Safety Awareness, and Mobility SIGNATURE PANEL: (CDT)
[2019-11-30] MEDS: MELATONIN 3 MG TABLET PO PRN (20:00)
[2019-11-30] MEDS: ATORVASTATIN 20 MG TAB PO SCH (20:00)
[2019-12-01] MEDS: carvediloL 3.125 MG TAB PO SCH ×2 (05:26→16:54)
[2019-12-01] MEDS: PANTOPRAZOLE 40MG TABLET PO SCH (06:26)
[2019-12-01 06:54] LABS: Protime INR 1.95
[2019-12-01] MEDS: INSULIN -REGULAR HUMAN 50 UNIT/0.5 ML ML SQ SCH ×4 (07:30→20:02)
[2019-12-01] MEDS: NICOTINE 7 MG/PAT TD SCH (07:39)
[2019-12-01] MEDS: glipiZIDE 5 MG TAB PO SCH (08:04)
[2019-12-01] MEDS: ACETAMINOPHEN 500 MG TAB PO PRN (08:04)
[2019-12-01] MEDS: ASPIRIN 81 MG CHEWABLE TABLET PO SCH (08:05)
[2019-12-01] MEDS: FLUOXETINE 20 MG CAP PO SCH (08:05)
[2019-12-01] MEDS: lisinopriL 20 MG TAB PO SCH (08:05)
[2019-12-01] MEDS: CRANBERRY FRUIT EXTRACT 200 MG CAP PO SCH ×2 (08:05→19:53)
[2019-12-01] MEDS: NYSTATIN PWDR 100000 UNIT/GM TOP SCH ×2 (09:16→19:54)
--- NOTE | 2019-12-01 09:41 | P.RH.PN ---
Estimated Length of Stay: 24 Expected Discharge Date: 12/09/19 Discharge Disposition Plan: Home Family Support: Yes Penitentiary Goal: Mobility, Transfers, Self Care Vital Signs: Last Vital Signs Temp 97.3 F 12/01/19 07:54 Pulse 62 12/01/19 08:05 Resp 16 12/01/19 07:54 BP 123/44 L 12/01/19 08:05 Pulse Ox 97 12/01/19 07:54 Laboratory: Laboratory Last Values WBC 5.6 K/uL (4.3-10.9) 11/30/19 06:22 RBC 3.99 M/uL (4.33-5.43) L 11/30/19 06:22 Hgb 11.5 g/dL (13.6-17.9) L 11/30/19 06:22 Hct 33.5 % (39.6-49.0) L 11/30/19 06:22 MCV 83.8 fL (80-100) 11/30/19 06:22 MCH 28.9 pg (27.0-35.0) 11/30/19 06:22 MCHC 34.5 g/dL (32.0-36.0) 11/30/19 06:22 RDW 14.6 % (12.1-15.2) 11/30/19 06:22 Plt Count 115 K/uL (152-406) L 11/30/19 06:22 MPV 9.3 fL (7.6-11.3) 11/30/19 06:22 Neutrophils % 64.2 % (41.7-73.7) 11/30/19 06:22 Lymphocytes % 24.7 % (15.3-44.8) 11/30/19 06:22 Monocytes % 8.3 % (3.3-12.3) 11/30/19 06:22 Eosinophils % 2.3 % (0-4.4) 11/30/19 06:22 Basophils % 0.5 % (0-1.3) 11/30/19 06:22 Absolute Neutrophils 3.6 K/uL (1.8-8.0) 11/30/19 06:22 Absolute Lymphocytes 1.4 K/uL (0.7-4.9) 11/30/19 06:22 Absolute Monocytes 0.5 K/uL (0.1-1.3) 11/30/19 06:22 Absolute Eosinophils 0.1 K/uL (0-0.5) 11/30/19 06:22 Absolute Basophils 0.0 K/uL (0-0.5) 11/30/19 06:22 Platelet Estimate Decr 11/17/19 06:00 Giant Platelets Present 11/17/19 06:00 Morphology Comment Not seen (NOT SEEN) 11/17/19 06:00 PT 22.7 SECONDS (9.5-12.5) H 12/01/19 06:27 INR 1.95 12/01/19 06:27 Sodium 142 mmol/L (136-145) 11/30/19 06:22 Potassium 4.0 mmol/L (3.5-5.1) 11/30/19 06:22 Chloride 110 mmol/L (98-107) H 11/30/19 06:22 Carbon Dioxide 27 mmol/L (21-32) 11/30/19 06:22 BUN 14 mg/dL (7-18) 11/30/19 06:22 Creatinine 1.00 mg/dL (0.55-1.3) 11/30/19 06:22 Estimated GFR 73 mL/min (=/>90) L 11/30/19 06:22 Glucose 125 mg/dL (74-106) H 11/30/19 06:22 POC Glucose 103 mg/dL (65-120) 12/01/19 07:15 Hemoglobin A1c 6.6 % (4.2-6.3) H 11/27/19 06:22 Calcium 8.3 mg/dL (8.5-10.1) L 11/30/19 06:22 Magnesium 2.1 mg/dL (1.8-2.4) 11/30/19 06:22 Albumin 2.7 g/dL (3.4-5.0) L 11/30/19 06:22 Prealbumin 21.8 mg/dL (20-40) 11/30/19 06:22 Urine Color Yellow 11/16/19 22:25 Urine Appearance Clear 11/16/19 22:25 Urine pH 6.0 (5.0-7.0) 11/16/19 22:25 Ur Specific [place] >=1.030 (1.005-1.030) 11/16/19 22:25 Glucose (UA)(Auto) 1+ (NEG) H 11/16/19 22:25 Urine Ketones Negative (NEG) 11/16/19 22: Urine Blood Negative (NEG) 11/16/19 22: Urine Nitrite Negative (NEG) 11/16/19 22:25 Urine Bilirubin Negative (NEG) 11/16/19 22:25 Urine Urobilinogen 1.0 mg/dL (0.2-1.0) 11/16/19 22:25 Ur Leukocyte Esterase Negative (NEG) 11/16/19 22:25 Urine RBC <5 /HPF (NONE SEEN) 11/16/19 22:25 Urine WBC <5 /HPF (<5) 11/16/19 22:25 Ur Squamous Epith Cells 5-10 /HPF (NONE SEEN) H 11/16/19 22:25 Calcium Oxalate Crystal Many (NONE SEEN) H 11/16/19 22:25 Urine Bacteria <20 /HPF (NONE SEEN) 11/16/19 22: Urine Culture Reflexed Not needed 11/16/19 22: Urine Total Protein Negative (NEG) 11/16/19 22:25 SARS-CoV-2 RNA (RT-PCR) Negative (NEGATIVE) 11/17/19 22:00 Smear Scan Ok (OK) 11/17/19 06:00 Weight: 210 lb 9.6 oz Wound Present: No Closed Surgical Incision Present: No Negative Pressure Wound Therapy Present: No Physician Update: Labs reviewed and are stable. INR is 1.95. Will go to coumadin 7 mg daily. He is making fair overall progress with physical and occupational therapy. His right leg still requires moderate assistance for walking 30' with the walker. He does well with verbal ques. His right leg pushs to the right when walking. His short term memory is still a challenge. Medical Issues: HX INCLUDES HTN, TOBACCO ABUSE, THROMBOCYTOPENIA. Pain Issues: TAKING TYLENOL FOR PAIN. Nutritional Needs: ADA 1800 DIET Comment: Redness on the bilateral groins and buttocks, nystatin powder scheduled Functional Improvement: Patient has met all short-term goals at this time, and is progressing well toward long-term goals. Patient is currently ambulating in hallway w/ RW w/ Mod A. 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 Please see the Rehabilitation Signature page for all necessary signatures.
--- NOTE | 2019-12-01 11:41 | FAST ---
OT QI REPORT FORM ENCOUNTER DATE AND TIME: 12/01/2019 08:00 (CDT) NAME JEREMIE STATON DATE OF : 1945 DATE OF ADMISSION: 11/16/2019 18:41 (CDT) PHONE: AGE: 74 N# [id number] GENDER: Male ENCOUNTER PHYSICIAN: Dr. Job Duque M.D. ADMISSION DIAGNOSIS: - Stroke 01 - Right Body (Left Brain) (01.2) Left hemispheric STROKE. EATING: Not assessed/no information CODE: - ORAL HYGIENE: Not assessed/no information CODE: - TOILETING HYGIENE: Not assessed/no information CODE: - BATHING: SHOWER/BATHE SELF - STEP 1: Does the patient complete the activity by him/herself with no assistance (physical, verbal/nonverbal cueing, setup/clean-up)? No. SHOWER/BATHE SELF - STEP 2: Does the patient need only setup/clean-up assistance from one helper? No. SHOWER/BATHE SELF - STEP 3: Does the patient need only verbal/nonverbal cueing or touching/steadying/contact guard assistance fro m one helper? No. SHOWER/BATHE SELF - STEP 4: Does the patient need physical assistance - for example lifting or trunk support from one helper - wi th the helper providing less than half of the effort? Yes. 1. [id number] ADMISSION PERFORMANCE: Partial/moderate assistance CODE: 03 DRESSING - UPPER BODY: DRESSING - UPPER BODY - STEP 1: Does the patient complete the activity by him/herself with no assistance (physical, verbal/nonverbal cueing, setup/clean-up)? No. DRESSING - UPPER BODY - STEP 2: Does the patient need only setup/clean-up assistance from one helper? No. DRESSING - UPPER BODY - STEP 3: Does the patient need only verbal/nonverbal cueing or touching/steadying/contact guard assistance fro m one helper? Yes. 1. [id number] ADMISSION PERFORMANCE: Supervision or touching assistance CODE: 04 DRESSING - LOWER BODY: DRESSING - LOWER BODY - STEP 1: Does the patient complete the activity by him/herself with no assistance (physical, verbal/nonverbal cueing, setup/clean-up)? No. DRESSING - LOWER BODY - STEP 2: Does the patient need only setup/clean-up assistance from one helper? No. DRESSING - LOWER BODY - STEP 3: Does the patient need only verbal/nonverbal cueing or touching/steadying/contact guard assistance fro m one helper? No. DRESSING - LOWER BODY - STEP 4: Does the patient need physical assistance - for example lifting or trunk support from one helper - wi th the helper providing less than half of the effort? Yes. 1. [id number] ADMISSION PERFORMANCE: Partial/moderate assistance CODE: 03 PUTTING ON/TAKING OFF FOOTWEAR: FOOTWEAR - STEP 1: Does the patient complete the activity by him/herself with no assistance (physical, verbal/nonverbal cueing, setup/clean-up)? No. FOOTWEAR - STEP 2: Does the patient need only setup/clean-up assistance from one helper? No. FOOTWEAR - STEP 3: Does the patient need only verbal/nonverbal cueing or touching/steadying/contact guard assistance fro m one helper? No. FOOTWEAR - STEP 4: Does the patient need physical assistance - for example lifting or trunk support from one helper - wi th the helper providing less than half of the effort? Yes. 1. [id number] ADMISSION PERFORMANCE: Partial/moderate assistance CODE: 03 DOES THE PATIENT USE A WHEELCHAIR/SCOOTER? CODE: EXPR INDICATE THE TYPE OF WHEELCHAIR/SCOOTER USED: CODE: EXPR INDICATE THE TYPE OF WHEELCHAIR/SCOOTER USED: CODE: EXPR BLADDER AND BOWEL: CODE: EXPR CODE: EXPR SIGNATURE PANEL: The following modified sections: 1. [id number] Admission Performance, 1. [id number] Admission Performance, 1. [id number] Admission Performance, 1. [id number] Admission Performance were [electronically] signed by Elizabeth Celeste OT on WedDec 01 2019 11:40:10 GMT-0500 (Central Daylight Time)
[2019-12-01] MEDS: WARFARIN SODIUM 5 MG TAB PO SCH (16:53)
[2019-12-01] MEDS: WARFARIN SODIUM 2 MG TAB PO SCH (16:53)
[2019-12-01] MEDS ORDERED: WARFARIN SODIUM 5 MG TAB PO SCH (17:00)
[2019-12-01] MEDS: ATORVASTATIN 20 MG TAB PO SCH (20:01)
[2019-12-02] MEDS: carvediloL 3.125 MG TAB PO SCH ×2 (05:29→17:08)
[2019-12-02 07:03] LABS: Protime INR 1.99
[2019-12-02] MEDS: INSULIN -REGULAR HUMAN 50 UNIT/0.5 ML ML SQ SCH ×4 (07:30→20:45)
[2019-12-02] MEDS: PANTOPRAZOLE 40MG TABLET PO SCH (07:38)
[2019-12-02] MEDS: lisinopriL 20 MG TAB PO SCH (08:00)
[2019-12-02] MEDS: NYSTATIN PWDR 100000 UNIT/GM TOP SCH ×2 (08:00→20:25)
[2019-12-02] MEDS: NICOTINE 7 MG/PAT TD SCH (08:00)
[2019-12-02] MEDS: ASPIRIN 81 MG CHEWABLE TABLET PO SCH (08:44)
[2019-12-02] MEDS: glipiZIDE 5 MG TAB PO SCH (08:44)
[2019-12-02] MEDS: CRANBERRY FRUIT EXTRACT 200 MG CAP PO SCH ×2 (08:44→20:26)
[2019-12-02] MEDS: FLUOXETINE 20 MG CAP PO SCH (08:45)
--- NOTE | 2019-12-02 14:16 | FAST ---
[employer] FORM SHIFT START DATE/TIME: 12/02/2019 07:00 (CDT) SHIFT END DATE/TIME: 12/02/2019 19:00 (CDT) NAME JEREMIE STATON DATE OF : 1945 DATE OF ADMISSION: 11/16/2019 18:41 (CDT) PHONE: AGE: 74 N# [id number] GENDER: Male ENCOUNTER PHYSICIAN: Dr. Job Duque M.D. ADMISSION DIAGNOSIS: - Stroke 01 - Right Body (Left Brain) (01.2) Left hemispheric STROKE. EATING: EATING - STEP 1: Does the patient complete the activity by him/herself with no assistance (physical, verbal/nonverbal cueing, setup/clean-up)? No. EATING - STEP 2: Does the patient need only setup/clean-up assistance from one helper? Yes. 1. [id number] ADMISSION PERFORMANCE: Setup or clean-up assistance CODE: 05 ORAL HYGIENE: ORAL HYGIENE - STEP 1: Does the patient complete the activity by him/herself with no assistance (physical, verbal/nonverbal cueing, setup/clean-up)? No. ORAL HYGIENE - STEP 2: Does the patient need only setup/clean-up assistance from one helper? Yes. 1. [id number] ADMISSION PERFORMANCE: Setup or clean-up assistance CODE: 05 TOILETING HYGIENE: TOILETING HYGIENE - STEP 1: Does the patient complete the activity by him/herself with no assistance (physical, verbal/nonverbal cueing, setup/clean-up)? No. TOILETING HYGIENE - STEP 2: Does the patient need only setup/clean-up assistance from one helper? No. TOILETING HYGIENE - STEP 3: Does the patient need only verbal/nonverbal cueing or touching/steadying/contact guard assistance fro m one helper? No. TOILETING HYGIENE - STEP 4: Does the patient need physical assistance - for example lifting or trunk support from one helper - wi th the helper providing less than half of the effort? No. TOILETING HYGIENE - STEP 5: Does the patient need physical assistance - for example lifting or trunk support from one helper - wi th the helper providing more than half of the effort? Yes. 1. [id number] ADMISSION PERFORMANCE: Substantial/maximal assistance CODE: 02 BATHING: Not assessed/no information CODE: - DRESSING - UPPER BODY: DRESSING - UPPER BODY - STEP 1: Does the patient complete the activity by him/herself with no assistance (physical, verbal/nonverbal cueing, setup/clean-up)? No. DRESSING - UPPER BODY - STEP 2: Does the patient need only setup/clean-up assistance from one helper? No. DRESSING - UPPER BODY - STEP 3: Does the patient need only verbal/nonverbal cueing or touching/steadying/contact guard assistance fro m one helper? Yes. 1. [id number] ADMISSION PERFORMANCE: Supervision or touching assistance CODE: 04 DRESSING - LOWER BODY: DRESSING - LOWER BODY - STEP 1: Does the patient complete the activity by him/herself with no assistance (physical, verbal/nonverbal cueing, setup/clean-up)? No. DRESSING - LOWER BODY - STEP 2: Does the patient need only setup/clean-up assistance from one helper? No. DRESSING - LOWER BODY - STEP 3: Does the patient need only verbal/nonverbal cueing or touching/steadying/contact guard assistance fro m one helper? No. DRESSING - LOWER BODY - STEP 4: Does the patient need physical assistance - for example lifting or trunk support from one helper - wi th the helper providing less than half of the effort? Yes. 1. [id number] ADMISSION PERFORMANCE: Partial/moderate assistance CODE: 03 PUTTING ON/TAKING OFF FOOTWEAR: FOOTWEAR - STEP 1: Does the patient complete the activity by him/herself with no assistance (physical, verbal/nonverbal cueing, setup/clean-up)? No. FOOTWEAR - STEP 2: Does the patient need only setup/clean-up assistance from one helper? No. FOOTWEAR - STEP 3: Does the patient need only verbal/nonverbal cueing or touching/steadying/contact guard assistance fro m one helper? No. FOOTWEAR - STEP 4: Does the patient need physical assistance - for example lifting or trunk support from one helper - wi th the helper providing less than half of the effort? No. FOOTWEAR - STEP 5: Does the patient need physical assistance - for example lifting or trunk support from one helper - wi th the helper providing more than half of the effort? Yes. 1. [id number] ADMISSION PERFORMANCE: Substantial/maximal assistance CODE: 02 ROLL LEFT AND RIGHT: ROLL LEFT AND RIGHT - STEP 1: Does the patient complete the activity by him/herself with no assistance (physical, verbal/nonverbal cueing, setup/clean-up)? No. ROLL LEFT AND RIGHT - STEP 2: Does the patient need only setup/clean-up assistance from one helper? No. ROLL LEFT AND RIGHT - STEP 3: Does the patient need only verbal/nonverbal cueing or touching/steadying/contact guard assistance fro m one helper? No. ROLL LEFT AND RIGHT - STEP 4: Does the patient need physical assistance - for example lifting or trunk support from one helper - wi th the helper providing less than half of the effort? Yes. 1. [id number] ADMISSION PERFORMANCE: Partial/moderate assistance CODE: 03 SIT TO LYING: SIT TO LYING - STEP 1: Does the patient complete the activity by him/herself with no assistance (physical, verbal/nonverbal cueing, setup/clean-up)? No. SIT TO LYING - STEP 2: Does the patient need only setup/clean-up assistance from one helper? No. SIT TO LYING - STEP 3: Does the patient need only verbal/nonverbal cueing or touching/steadying/contact guard assistance fro m one helper? No. SIT TO LYING - STEP 4: Does the patient need physical assistance - for example lifting or trunk support from one helper - wi th the helper providing less than half of the effort? Yes. 1. [id number] ADMISSION PERFORMANCE: Partial/moderate assistance CODE: 03 LYING TO SITTING: LYING TO SITTING ON SIDE OF BED - STEP 1: Does the patient complete the activity by him/herself with no assistance (physical, verbal/nonverbal cueing, setup/clean-up)? No. LYING TO SITTING ON SIDE OF BED - STEP 2: Does the patient need only setup/clean-up assistance from one helper? No. LYING TO SITTING ON SIDE OF BED - STEP 3: Does the patient need only verbal/nonverbal cueing or touching/steadying/contact guard assistance fro m one helper? No. LYING TO SITTING ON SIDE OF BED - STEP 4: Does the patient need physical assistance - for example lifting or trunk support from one helper - wi th the helper providing less than half of the effort? Yes. 1. [id number] ADMISSION PERFORMANCE: Partial/moderate assistance CODE: 03 SIT TO STAND: SIT TO STAND - STEP 1: Does the patient complete the activity by him/herself with no assistance (physical, verbal/nonverbal cueing, setup/clean-up)? No. SIT TO STAND - STEP 2: Does the patient need only setup/clean-up assistance from one helper? No. SIT TO STAND - STEP 3: Does the patient need only verbal/nonverbal cueing or touching/steadying/contact guard assistance fro m one helper? No. SIT TO STAND - STEP 4: Does the patient need physical assistance - for example lifting or trunk support from one helper - wi th the helper providing less than half of the effort? Yes. 1. [id number] ADMISSION PERFORMANCE: Partial/moderate assistance CODE: 03 TRANSFERS: BED, CHAIR: CHAIR/[id number] TRANSFER - STEP 1: Does the patient complete the activity by him/herself with no assistance (physical, verbal/nonverbal cueing, setup/clean-up)? No. CHAIR/[id number] TRANSFER - STEP 2: Does the patient need only setup/clean-up assistance from one helper? No. CHAIR/[id number] TRANSFER - STEP 3: Does the patient need only verbal/nonverbal cueing or touching/steadying/contact guard assistance fro m one helper? No. CHAIR/[id number] TRANSFER - STEP 4: Does the patient need physical assistance - for example lifting or trunk support from one helper - wi th the helper providing less than half of the effort? Yes. 1. [id number] ADMISSION PERFORMANCE: Partial/moderate assistance CODE: 03 TRANSFER TOILET: TOILET TRANSFER - STEP 1: Does the patient complete the activity by him/herself with no assistance (physical, verbal/nonverbal cueing, setup/clean-up)? No. TOILET TRANSFER - STEP 2: Does the patient need only setup/clean-up assistance from one helper? No. TOILET TRANSFER - STEP 3: Does the patient need only verbal/nonverbal cueing or touching/steadying/contact guard assistance fro m one helper? No. TOILET TRANSFER - STEP 4: Does the patient need physical assistance - for example lifting or trunk support from one helper - wi th the helper providing less than half of the effort? Yes. 1. [id number] ADMISSION PERFORMANCE: Partial/moderate assistance CODE: 03 TRANSFERS: CAR: Not assessed/no information CODE: - WALK 10 FEET: Not assessed/no information CODE: - 1 STEP (CURB): Not assessed/no information CODE: - PICKING UP OBJECT: Not assessed/no information CODE: - DOES THE PATIENT USE A WHEELCHAIR/SCOOTER? CODE: EXPR WHEEL 50 FEET WITH TWO TURNS: WHEEL 50 FEET WITH TWO TURNS - STEP 1: Does the patient complete the activity by him/herself with no assistance (physical, verbal/nonverbal cueing, setup/clean-up)? No. WHEEL 50 FEET WITH TWO TURNS - STEP 2: Does the patient need only setup/clean-up assistance from one helper? No. WHEEL 50 FEET WITH TWO TURNS - STEP 3: Does the patient need only verbal/nonverbal cueing or touching/steadying/contact guard assistance fro m one helper? Yes. 1. [id number] ADMISSION PERFORMANCE: Supervision or touching assistance CODE: 04 INDICATE THE TYPE OF WHEELCHAIR/SCOOTER USED: RR1. INDICATE THE TYPE OF WHEELCHAIR/SCOOTER USED.: Manual CODE: 1 WHEEL 150 FEET: WHEEL 150 FEET - STEP 1: Does the patient complete the activity by him/herself with no assistance (physical, verbal/nonverbal cueing, setup/clean-up)? No. WHEEL 150 FEET - STEP 2: Does the patient need only setup/clean-up assistance from one helper? No. WHEEL 150 FEET - STEP 3: Does the patient need only verbal/nonverbal cueing or touching/steadying/contact guard assistance fro m one helper? Yes. 1. [id number] ADMISSION PERFORMANCE: Supervision or touching assistance CODE: 04 INDICATE THE TYPE OF WHEELCHAIR/SCOOTER USED: SS1. INDICATE THE TYPE OF WHEELCHAIR/SCOOTER USED.: Manual CODE: 1 BLADDER AND BOWEL: H350. BLADDER CONTINENCE (3-DAY ASSESSMENT PERIOD): Incontinent daily (at least once a day) CODE: 3 H400. BOWEL CONTINENCE (3-DAY ASSESSMENT PERIOD): Always continent CODE: 0 SIGNATURE PANEL: The following modified sections: 1. [id number] Admission Performance, 1. [id number] Admission Performance, 1. [id number] Admission Performance, 1. [id number] Admission Performance, 1. [id number] Admission Performance, 1. [id number] Admission Performance, 1. [id number] Admission Performance, 1. [id number] Admission Performance , 1. [id number] Admission Performance, 1. [id number] Admission Performance, 1. [id number] Admission Performanc e, 1. [id number] Admission Performance, 1. [id number] Admission Performance, 1. [id number] Admission Performan ce, RR1. Indicate the type of wheelchair/scooter used., 1. [id number] Admission Performance, Code, SS1. Indicate the type of wheelchair/scooter used., H350. Bladder Continence (3-day assessment period), H4 00. Bowel Continence (3-day assessment period), 1. [id number] Admission Performance, 1. [id number] Admissio n Performance were [electronically] signed by Tabby WilsonNRobyn on Sat Dec 02 2019 14:16:12 GMT-05 00 (Central Daylight Time)
[2019-12-02] MEDS: WARFARIN SODIUM 5 MG TAB PO SCH (17:08)
[2019-12-02] MEDS: WARFARIN SODIUM 2 MG TAB PO SCH (17:08)
[2019-12-02] MEDS: ATORVASTATIN 20 MG TAB PO SCH (20:26)
[2019-12-02] MEDS: MELATONIN 3 MG TABLET PO PRN (20:26)
[2019-12-03] MEDS: carvediloL 3.125 MG TAB PO SCH ×2 (05:28→17:03)
[2019-12-03 06:48] LABS: Protime INR 1.81
[2019-12-03] MEDS: PANTOPRAZOLE 40MG TABLET PO SCH (07:03)
[2019-12-03] MEDS: INSULIN -REGULAR HUMAN 50 UNIT/0.5 ML ML SQ SCH ×4 (07:30→20:05)
[2019-12-03] MEDS: NYSTATIN PWDR 100000 UNIT/GM TOP SCH ×2 (08:00→20:00)
[2019-12-03] MEDS: NICOTINE 7 MG/PAT TD SCH (08:00)
[2019-12-03] MEDS: lisinopriL 20 MG TAB PO SCH (08:03)
[2019-12-03] MEDS: CRANBERRY FRUIT EXTRACT 200 MG CAP PO SCH ×2 (08:03→19:42)
[2019-12-03] MEDS: glipiZIDE 5 MG TAB PO SCH (08:04)
[2019-12-03] MEDS: FLUOXETINE 20 MG CAP PO SCH (08:04)
[2019-12-03] MEDS: ASPIRIN 81 MG CHEWABLE TABLET PO SCH (08:04)
[2019-12-03] MEDS ORDERED: WARFARIN SODIUM 5 MG TAB PO ONE (17:00)
[2019-12-03] MEDS: DOCUSATE NA/SENNA CONC 1 TAB PO PRN (19:42)
[2019-12-03] MEDS: MELATONIN 3 MG TABLET PO PRN (20:05)
[2019-12-03] MEDS: ATORVASTATIN 20 MG TAB PO SCH (20:06)
[2019-12-03] MEDS: TRAZODONE 50 MG TABLET PO PRN (20:33)
[2019-12-04] MEDS: carvediloL 3.125 MG TAB PO SCH ×2 (05:01→17:15)
[2019-12-04 05:58] LABS: Protime INR 1.92
[2019-12-04] MEDS: PANTOPRAZOLE 40MG TABLET PO SCH (06:24)
[2019-12-04] MEDS: INSULIN -REGULAR HUMAN 50 UNIT/0.5 ML ML SQ SCH ×4 (07:30→20:09)
[2019-12-04] MEDS: ACETAMINOPHEN 500 MG TAB PO PRN ×2 (07:54→20:27)
[2019-12-04] MEDS: ASPIRIN 81 MG CHEWABLE TABLET PO SCH (07:58)
[2019-12-04] MEDS: CRANBERRY FRUIT EXTRACT 200 MG CAP PO SCH ×2 (07:58→20:09)
[2019-12-04] MEDS: FLUOXETINE 20 MG CAP PO SCH (07:58)
[2019-12-04] MEDS: glipiZIDE 5 MG TAB PO SCH (07:59)
[2019-12-04] MEDS: NICOTINE 7 MG/PAT TD SCH (07:59)
[2019-12-04] MEDS: lisinopriL 20 MG TAB PO SCH (08:00)
[2019-12-04] MEDS: NYSTATIN PWDR 100000 UNIT/GM TOP SCH (09:23)
[2019-12-04] MEDS: POLYETHYL GLY 3350 17 GM/DOSE PO PRN (14:53)
[2019-12-04] MEDS: WARFARIN SODIUM 4 MG TAB PO SCH (16:59)
--- NOTE | 2019-12-04 17:42 | R.PN ---
PROGRESS NOTES ENCOUNTER DATE AND TIME: 12/04/2019 17:37 (CDT) NAME JEREMIE STATON DATE OF : 1945 DATE OF ADMISSION: 11/16/2019 18:41 (CDT) Left hemispheric STROKECHIEF COMPLAINT: Left hemispheric stroke with right sided weakness. SUBJECTIVE: Pt denied any depression. Pt denied any Shortness of Breath. CBC with differential is unremarkable except Hgb of 11.5. Glucose 90 to 127. Prealbumin 27.3. UA with C and S showed E-Coli sensitive to Cipro. Treated with Cipro 500 mg bid for 5 days. Patient states that pain is under control. ADLs done with supervision to independence. Ambulated 35' with moderate to maximum assistance using a rolling walker. INR 1.92, will give coumadin 8 mg today then recheck INR in the AM. VITAL SIGNS Temperature: 98.1 F SBP/DBP: 109/42 Pulse: 64 Resp: 16 MEDICATION ALLERGIES: No Known Drug Allergies (NKDA) ENVIRONMENTAL ALLERGIES: - Substance Allergies None Known - Other Allergies None Known NURSING: - Shower allowing shower - Bladder care per protocol - Skin care per protocol PRECAUTIONS: - Weight Bearing Precaution WBAT right LE ACTIVITIES OOB only with supervision THERAPIES: - Occupational Therapy Cognitive Retraining. Visual Perceptual Training. - Dietary and Nutrition Adequate Nutrition. Nutritional Education. Nutritional Supplements. - Speech Therapy Cognitive Training. Expressive Language Skills. Memory Strategies. Receptive Language Skills. Speech Intelligibility Training. PHYSICAL EXAM - Gen Alert and awake Lying in bed No apparent distress Oriented to: person, time, and place - Skin No breakdown No abnormalities - Eyes No abnormalities - ENMT No abnormalities - Neck No abnormalities - CVS RRR - Chest No abnormalities - Abd Soft - GI Non distended Deferred - No abnormalities - Ext Mild right lower extremity edema. - MSK 0/5 weakness in right lower extremity, 4/5 right upper extremity strength. - Neuro 0/5 weakness in right lower extremity, 4/5 right upper extremity strength. - Psych No abnormalities ASSESSMENT: Currently, he has deficits of Locomotion, Balance, Transfers Control, Sphincter Control, and Enduranc e.On 11/06/2019 Pt. presented to [facility] with sudden onset of right-side weakness.On 0 he was admitted to [facility] with diagnosis Left hemispheric STROKE.His impairment category is Stroke 01 - Right Body (Left Brain) (01.2).Pt. is now referred to [facility] for acute in-patient rehabilitation in order to maximize patient's functional independence in activi ties of daily living, strength, ROM, and mobility.Pre-morbidly, Pt. was independent/mod-I in Locomoti on, Safety Awareness, Social Cognition, Balance, Transfers Control, Self-Care, and Communication; and he had good Sphincter Control and Endurance.Pt. is a 74 yo Right-handed male of unknown race.- Rehab Goal Patient has realistic goal of being discharged at assistance level 7-Ind to reside at Home with Pt s elf. MDM/PLAN: - Physical Therapy Edema - to improve, our physical therapists will perform initial evaluation of pt's status upon admi ssion and devise an individualized program for Elevation Training, and Lymphedema Therapy Gait dysfunction - to improve, our physical therapists will perform initial evaluation of pt's statu s upon admission and devise an individualized program for Gait Training, and Wheel Chair mobility Inability to transfer - to improve, our physical therapists will perform initial evaluation of pt's status upon admission and devise an individualized program for Bed mobility Need for home safety evaluation - to improve, our physical therapists will perform initial evaluatio n of pt's status upon admission and devise an individualized program for Home Evaluation Need in caregiver upon discharge - to improve, our physical therapists will perform initial evaluati on of pt's status upon admission and devise an individualized program for Caregiver Training New precaution - to improve, our physical therapists will perform initial evaluation of pt's status upon admission and devise an individualized program for Patient precaution education Poor balance - to improve, our physical therapists will perform initial evaluation of pt's status up on admission and devise an individualized program for Balance Training Poor endurance - to improve, our physical therapists will perform initial evaluation of pt's status upon admission and devise an individualized program for Endurance Training Weakness - to improve, our physical therapists will perform initial evaluation of pt's status upon a dmission and devise an individualized program for Aquatic Therapy, Neuromuscular Reeducation, and Str engthening - Occupational Therapy Need for critical care cns - to improve, our occupation therapists will perform initial evaluation of pt's status upon admission and devise an individualized program for Caregiver Training Weakness - to improve, our occupation therapists will perform initial evaluation of pt's status upon admission and devise an individualized program for Aquatic Therapy, Balance, Endurance, UE ROM, and UE strengthening - Cognition - orientation for aphasia - Dressing Status: dep for ADL deficits - Grooming Status: min for ADL deficits - Toilet Transfer Status: dep for ADL deficits - Bed to Chair Transfer squat pivot transfer Status: dep for ADL deficits - Tub Transfer Status: dep for ADL deficits - Shower Transfer Status: dep for ADL deficits - Wheel Chair to Bed Transfer Status: dep for ADL deficits - Other See attached MAR (Medication Administration Record) - Diet Type Continue Regular - Diet - Liquid Texture Continue Regular - Tube Feed Continue N/A - Bladder care per protocol - Weight Bearing Precaution WBAT right LE - Skin care per protocol - Diet - Solid Texture Continue Regular - Shower allowing shower for Dementia, TBI, Stroke, or others - Balance for Weakness - Bed mobility for ADL deficits - Eating for ADL deficits - Hygiene for ADL deficits FUNCTIONAL STATUS: UPDATED AT WEEKLY TEAM CONFERENCE - Bladder Same accident frequency: 7-Ind - No accidents in the past 7 days - Bowel Same accident frequency: 7-Ind - No accidents in the past 7 days - Walking Same score based on distance walked: 0(N/A) - Wheelchair Same score based on distance traveled: 0(N/A) FUNCTIONAL STATUS: - Self-Care A. Eating Usha B. Grooming sup C. Bathing maxA D. Dressing - Upper modA E. Dressing - Lower maxA F. Toileting maxA - Sphincter Control G. Bladder control Amaury H. Bowel control Amaury - Transfers Control I. Bed/Chair/Wheelchair maxA J. Toilet maxA K. Tub/Shower maxA - Locomotion L. Walk/Wheelchair (B) maxA M. Stairs ADNO - Communication N. Comprehension (B) sup O. Expression (B) sup - Social Cognition P. Social Interaction Usha Q. Problem Solving sup R. Memory sup - Endurance Poor - Balance Poor - Safety Awareness Poor QI SCORES: - Self-Care A. Eating 03-Partial/moderate assistance B. Oral hygiene 02-Substantial/maximal assistance C. Toileting hygiene 02-Substantial/maximal assistance E. Shower/bathe self 02-Substantial/maximal assistance F. Upper body dressing 02-Substantial/maximal assistance G. Lower body dressing 02-Substantial/maximal assistance H. Putting on/taking off footwear 88-Not attempted due to medical condition or safety concerns - Mobility M. 1 step (curb) 88-Not attempted due to medical condition or safety concerns N. 4 steps 88-Not attempted due to medical condition or safety concerns O. 12 steps 88-Not attempted due to medical condition or safety concerns P. Picking up object 88-Not attempted due to medical condition or safety concerns R. Wheel 50 feet with two turns 88-Not attempted due to medical condition or safety concerns A. Roll left and right 03-Partial/moderate assistance B. Sit to lying 03-Partial/moderate assistance C. Lying to sitting on side of bed 03-Partial/moderate assistance D. Sit to stand 02-Substantial/maximal assistance E. Chair/bac-ct-stbhu transfer 02-Substantial/maximal assistance F. Toilet transfer 88-Not attempted due to medical condition or safety concerns G. Car transfer 88-Not attempted due to medical condition or safety concerns I. Walk 10 feet 88-Not attempted due to medical condition or safety concerns J. Walk 50 feet with two turns 88-Not attempted due to medical condition or safety concerns K. Walk 150 feet 88-Not attempted due to medical condition or safety concerns L. Walking 10 feet on uneven surfaces 88-Not attempted due to medical condition or safety concerns S. Wheel 150 feet 88-Not attempted due to medical condition or safety concerns - Bladder and Bowel Bladder continence Bowel continence - Endurance Fair - Balance Fair - Safety Awareness Fair CURRENT [facility]. DEFICITS: Endurance, Balance, Self-Care, Safety Awareness, and Mobility SIGNATURE PANEL: (CDT)
[2019-12-04] MEDS: ZINC OXIDE 20% OINTMENT 60gm TOP SCH (20:08)
[2019-12-04] MEDS: ATORVASTATIN 20 MG TAB PO SCH (20:09)
[2019-12-04] MEDS: TRAZODONE 50 MG TABLET PO PRN (20:09)
[2019-12-04] MEDS: DOCUSATE NA/SENNA CONC 1 TAB PO PRN (20:09)
[2019-12-05] MEDS: carvediloL 3.125 MG TAB PO SCH ×2 (05:45→16:44)
[2019-12-05 06:19] LABS: Protime INR 2.48
[2019-12-05] MEDS: PANTOPRAZOLE 40MG TABLET PO SCH (06:51)
[2019-12-05] MEDS: INSULIN -REGULAR HUMAN 50 UNIT/0.5 ML ML SQ SCH ×4 (07:07→20:20)
[2019-12-05] MEDS: NICOTINE 7 MG/PAT TD SCH (08:00)
[2019-12-05] MEDS: lisinopriL 20 MG TAB PO SCH (08:00)
[2019-12-05] MEDS: glipiZIDE 5 MG TAB PO SCH (08:07)
[2019-12-05] MEDS: ACETAMINOPHEN 500 MG TAB PO PRN ×2 (08:07→20:18)
[2019-12-05] MEDS: ASPIRIN 81 MG CHEWABLE TABLET PO SCH (08:07)
[2019-12-05] MEDS: CRANBERRY FRUIT EXTRACT 200 MG CAP PO SCH ×2 (08:07→20:17)
[2019-12-05] MEDS: FLUOXETINE 20 MG CAP PO SCH (08:07)
[2019-12-05] MEDS: ZINC OXIDE 20% OINTMENT 60gm TOP SCH ×2 (09:00→20:00)
[2019-12-05] MEDS ORDERED: BISACODYL 10 MG RECTAL SUPP PR PRN (13:57)
[2019-12-05] MEDS ORDERED: FLEET ENEMA ADULT PR PRN (13:58)
[2019-12-05] MEDS: WARFARIN SODIUM 4 MG TAB PO SCH (16:44)
--- NOTE | 2019-12-05 17:13 | R.PN ---
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 SUBJECTIVE: Pt denied any depression. Pt denied any Shortness of Breath. CBC with differential is unremarkable except Hgb of 11.5. Glucose 90 to 102. Prealbumin 27.3. UA with C and S showed E-Coli sensitive to Cipro. Treated with Cipro 500 mg bid for 5 days. Patient states that pain is under control. ADLs done with supervision to independence. Ambulated 65' with moderate to moderate assistance using a rolling walker. INR 2.48, will give coumadin 8 mg today then recheck INR in the AM. VITAL SIGNS Temperature: 97.2 F SBP/DBP: 105/44 Pulse: 62 Resp: 16 MEDICATION ALLERGIES: No Known Drug Allergies (NKDA) ENVIRONMENTAL ALLERGIES: - Substance Allergies None Known - Other Allergies None Known NURSING: - Shower allowing shower - Bladder care per protocol - Skin care per protocol PRECAUTIONS: - Weight Bearing Precaution WBAT right LE ACTIVITIES OOB only with supervision THERAPIES: - Occupational Therapy Cognitive Retraining. Visual Perceptual Training. - Dietary and Nutrition Adequate Nutrition. Nutritional Education. Nutritional Supplements. - Speech Therapy Cognitive Training. Expressive Language Skills. Memory Strategies. Receptive Language Skills. Speech Intelligibility Training. PHYSICAL EXAM - Gen Alert and awake Lying in bed No apparent distress Oriented to: person, time, and place - Skin No breakdown No abnormalities - Eyes No abnormalities - ENMT No abnormalities - Neck No abnormalities - CVS RRR - Chest No abnormalities - Abd Soft - GI Non distended Deferred - No abnormalities - Ext Mild right lower extremity edema. - MSK 0/5 weakness in right lower extremity, 4/5 right upper extremity strength. - Neuro 0/5 weakness in right lower extremity, 4/5 right upper extremity strength. - Psych No abnormalities ASSESSMENT: Currently, he has deficits of Locomotion, Balance, Transfers Control, Sphincter Control, and Enduranc e.On 11/06/2019 Pt. presented to [facility] with sudden onset of right-side weakness.On 0 he was admitted to [facility] with diagnosis Left hemispheric STROKE.His impairment category is Stroke 01 - Right Body (Left Brain) (01.2).Pt. is now referred to [facility] for acute in-patient rehabilitation in order to maximize patient's functional independence in activi ties of daily living, strength, ROM, and mobility.Pre-morbidly, Pt. was independent/mod-I in Locomoti on, Safety Awareness, Social Cognition, Balance, Transfers Control, Self-Care, and Communication; and he had good Sphincter Control and Endurance.Pt. is a 74 yo Right-handed male of unknown race.- Rehab Goal Patient has realistic goal of being discharged at assistance level 7-Ind to reside at Home with Pt s elf. MDM/PLAN: - Physical Therapy Edema - to improve, our physical therapists will perform initial evaluation of pt's status upon admi ssion and devise an individualized program for Elevation Training, and Lymphedema Therapy Gait dysfunction - to improve, our physical therapists will perform initial evaluation of pt's statu s upon admission and devise an individualized program for Gait Training, and Wheel Chair mobility Inability to transfer - to improve, our physical therapists will perform initial evaluation of pt's status upon admission and devise an individualized program for Bed mobility Need for home safety evaluation - to improve, our physical therapists will perform initial evaluatio n of pt's status upon admission and devise an individualized program for Home Evaluation Need in caregiver upon discharge - to improve, our physical therapists will perform initial evaluati on of pt's status upon admission and devise an individualized program for Caregiver Training New precaution - to improve, our physical therapists will perform initial evaluation of pt's status upon admission and devise an individualized program for Patient precaution education Poor balance - to improve, our physical therapists will perform initial evaluation of pt's status up on admission and devise an individualized program for Balance Training Poor endurance - to improve, our physical therapists will perform initial evaluation of pt's status upon admission and devise an individualized program for Endurance Training Weakness - to improve, our physical therapists will perform initial evaluation of pt's status upon a dmission and devise an individualized program for Aquatic Therapy, Neuromuscular Reeducation, and Str engthening - Occupational Therapy Need for health care facility administrator - to improve, our occupation therapists will perform initial evaluation of pt's status upon admission and devise an individualized program for Caregiver Training Weakness - to improve, our occupation therapists will perform initial evaluation of pt's status upon admission and devise an individualized program for Aquatic Therapy, Balance, Endurance, UE ROM, and UE strengthening - Cognition - orientation for aphasia - Dressing Status: dep for ADL deficits - Grooming Status: min for ADL deficits - Toilet Transfer Status: dep for ADL deficits - Bed to Chair Transfer squat pivot transfer Status: dep for ADL deficits - Tub Transfer Status: dep for ADL deficits - Shower Transfer Status: dep for ADL deficits - Wheel Chair to Bed Transfer Status: dep for ADL deficits - Other See attached MAR (Medication Administration Record) - Diet Type Continue Regular - Diet - Liquid Texture Continue Regular - Tube Feed Continue N/A - Bladder care per protocol - Weight Bearing Precaution WBAT right LE - Skin care per protocol - Diet - Solid Texture Continue Regular - Shower allowing shower for Dementia, TBI, Stroke, or others - Balance for Weakness - Bed mobility for ADL deficits - Eating for ADL deficits - Hygiene for ADL deficits FUNCTIONAL STATUS: UPDATED AT WEEKLY TEAM CONFERENCE - Bladder Same accident frequency: 7-Ind - No accidents in the past 7 days - Bowel Same accident frequency: 7-Ind - No accidents in the past 7 days - Walking Same score based on distance walked: 0(N/A) - Wheelchair Same score based on distance traveled: 0(N/A) FUNCTIONAL STATUS: - Self-Care A. Eating Usha B. Grooming sup C. Bathing maxA D. Dressing - Upper modA E. Dressing - Lower maxA F. Toileting maxA - Sphincter Control G. Bladder control Amaury H. Bowel control Amaury - Transfers Control I. Bed/Chair/Wheelchair maxA J. Toilet maxA K. Tub/Shower maxA - Locomotion L. Walk/Wheelchair (B) maxA M. Stairs ADNO - Communication N. Comprehension (B) sup O. Expression (B) sup - Social Cognition P. Social Interaction Usha Q. Problem Solving sup R. Memory sup - Endurance Poor - Balance Poor - Safety Awareness Poor QI SCORES: - Self-Care A. Eating 03-Partial/moderate assistance B. Oral hygiene 02-Substantial/maximal assistance C. Toileting hygiene 02-Substantial/maximal assistance E. Shower/bathe self 02-Substantial/maximal assistance F. Upper body dressing 02-Substantial/maximal assistance G. Lower body dressing 02-Substantial/maximal assistance H. Putting on/taking off footwear 88-Not attempted due to medical condition or safety concerns - Mobility M. 1 step (curb) 88-Not attempted due to medical condition or safety concerns N. 4 steps 88-Not attempted due to medical condition or safety concerns O. 12 steps 88-Not attempted due to medical condition or safety concerns P. Picking up object 88-Not attempted due to medical condition or safety concerns R. Wheel 50 feet with two turns 88-Not attempted due to medical condition or safety concerns A. Roll left and right 03-Partial/moderate assistance B. Sit to lying 03-Partial/moderate assistance C. Lying to sitting on side of bed 03-Partial/moderate assistance D. Sit to stand 02-Substantial/maximal assistance E. Chair/[id number] transfer 02-Substantial/maximal assistance F. Toilet transfer 88-Not attempted due to medical condition or safety concerns G. Car transfer 88-Not attempted due to medical condition or safety concerns I. Walk 10 feet 88-Not attempted due to medical condition or safety concerns J. Walk 50 feet with two turns 88-Not attempted due to medical condition or safety concerns K. Walk 150 feet 88-Not attempted due to medical condition or safety concerns L. Walking 10 feet on uneven surfaces 88-Not attempted due to medical condition or safety concerns S. Wheel 150 feet 88-Not attempted due to medical condition or safety concerns - Bladder and Bowel Bladder continence Bowel continence - Endurance Fair - Balance Fair - Safety Awareness Fair CURRENT [facility]. DEFICITS: Endurance, Balance, Self-Care, Safety Awareness, and Mobility SIGNATURE PANEL: (CDT)
[2019-12-05] MEDS: DOCUSATE NA/SENNA CONC 1 TAB PO PRN (20:18)
[2019-12-05] MEDS: TRAZODONE 50 MG TABLET PO PRN (20:18)
[2019-12-05] MEDS: ATORVASTATIN 20 MG TAB PO SCH (20:20)
[2019-12-06] MEDS: ACETAMINOPHEN 500 MG TAB PO PRN (00:34)
[2019-12-06] MEDS: carvediloL 3.125 MG TAB PO SCH ×2 (05:02→16:45)
[2019-12-06 06:03] LABS: Protime INR 2.41
[2019-12-06] MEDS: NICOTINE 7 MG/PAT TD SCH (07:29)
[2019-12-06] MEDS: INSULIN -REGULAR HUMAN 50 UNIT/0.5 ML ML SQ SCH ×4 (07:30→20:04)
[2019-12-06] MEDS: PANTOPRAZOLE 40MG TABLET PO SCH (07:31)
[2019-12-06] MEDS: CRANBERRY FRUIT EXTRACT 200 MG CAP PO SCH ×2 (07:31→19:55)
[2019-12-06] MEDS: ASPIRIN 81 MG CHEWABLE TABLET PO SCH (07:31)
[2019-12-06] MEDS: FLUOXETINE 20 MG CAP PO SCH (07:31)
[2019-12-06] MEDS: glipiZIDE 5 MG TAB PO SCH (07:32)
[2019-12-06] MEDS: ZINC OXIDE 20% OINTMENT 60gm TOP SCH ×2 (07:33→19:55)
[2019-12-06] MEDS ORDERED: lisinopriL 5 MG TAB PO SCH (08:00)
[2019-12-06] MEDS: WARFARIN SODIUM 4 MG TAB PO SCH (16:48)
--- NOTE | 2019-12-06 17:22 | R.PN ---
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 SUBJECTIVE: Pt denied any depression. Pt denied any Shortness of Breath. CBC with differential is unremarkable except Hgb of 11.5. Glucose 98 to 111. Prealbumin 27.3. Patient states that pain is under control. ADLs done with supervision to independence. Ambulated 80' with moderate to moderate assistance using a rolling walker. INR 2.41, will give coumadin 8 mg today then recheck INR in the AM. VITAL SIGNS Temperature: 97.8F SBP/DBP: 111/42 Pulse: 59 Resp: 16 MEDICATION ALLERGIES: No Known Drug Allergies (NKDA) ENVIRONMENTAL ALLERGIES: - Substance Allergies None Known - Other Allergies None Known NURSING: - Shower allowing shower - Bladder care per protocol - Skin care per protocol PRECAUTIONS: - Weight Bearing Precaution WBAT right LE ACTIVITIES OOB only with supervision THERAPIES: - Occupational Therapy Cognitive Retraining. Visual Perceptual Training. - Dietary and Nutrition Adequate Nutrition. Nutritional Education. Nutritional Supplements. - Speech Therapy Cognitive Training. Expressive Language Skills. Memory Strategies. Receptive Language Skills. Speech Intelligibility Training. PHYSICAL EXAM - Gen Alert and awake Lying in bed No apparent distress Oriented to: person, time, and place - Skin No breakdown No abnormalities - Eyes No abnormalities - ENMT No abnormalities - Neck No abnormalities - CVS RRR - Chest No abnormalities - Abd Soft - GI Non distended Deferred - No abnormalities - Ext Mild right lower extremity edema. - MSK 0/5 weakness in right lower extremity, 4/5 right upper extremity strength. - Neuro 0/5 weakness in right lower extremity, 4/5 right upper extremity strength. - Psych No abnormalities ASSESSMENT: Currently, he has deficits of Locomotion, Balance, Transfers Control, Sphincter Control, and Enduranc e.On 11/06/2019 Pt. presented to [facility] with sudden onset of right-side weakness.On 0 he was admitted to [facility] with diagnosis Left hemispheric STROKE.His impairment category is Stroke 01 - Right Body (Left Brain) (01.2).Pt. is now referred to [facility] for acute in-patient rehabilitation in order to maximize patient's functional independence in activi ties of daily living, strength, ROM, and mobility.Pre-morbidly, Pt. was independent/mod-I in Locomoti on, Safety Awareness, Social Cognition, Balance, Transfers Control, Self-Care, and Communication; and he had good Sphincter Control and Endurance.Pt. is a 74 yo Right-handed male of unknown race.- Rehab Goal Patient has realistic goal of being discharged at assistance level 7-Ind to reside at Home with Pt s elf. MDM/PLAN: - Physical Therapy Edema - to improve, our physical therapists will perform initial evaluation of pt's status upon admi ssion and devise an individualized program for Elevation Training, and Lymphedema Therapy Gait dysfunction - to improve, our physical therapists will perform initial evaluation of pt's statu s upon admission and devise an individualized program for Gait Training, and Wheel Chair mobility Inability to transfer - to improve, our physical therapists will perform initial evaluation of pt's status upon admission and devise an individualized program for Bed mobility Need for home safety evaluation - to improve, our physical therapists will perform initial evaluatio n of pt's status upon admission and devise an individualized program for Home Evaluation Need in caregiver upon discharge - to improve, our physical therapists will perform initial evaluati on of pt's status upon admission and devise an individualized program for Caregiver Training New precaution - to improve, our physical therapists will perform initial evaluation of pt's status upon admission and devise an individualized program for Patient precaution education Poor balance - to improve, our physical therapists will perform initial evaluation of pt's status up on admission and devise an individualized program for Balance Training Poor endurance - to improve, our physical therapists will perform initial evaluation of pt's status upon admission and devise an individualized program for Endurance Training Weakness - to improve, our physical therapists will perform initial evaluation of pt's status upon a dmission and devise an individualized program for Aquatic Therapy, Neuromuscular Reeducation, and Str engthening - Occupational Therapy Need for director medicare sales - to improve, our occupation therapists will perform initial evaluation of pt's status upon admission and devise an individualized program for Caregiver Training Weakness - to improve, our occupation therapists will perform initial evaluation of pt's status upon admission and devise an individualized program for Aquatic Therapy, Balance, Endurance, UE ROM, and UE strengthening - Cognition - orientation for aphasia - Dressing Status: dep for ADL deficits - Grooming Status: min for ADL deficits - Toilet Transfer Status: dep for ADL deficits - Bed to Chair Transfer squat pivot transfer Status: dep for ADL deficits - Tub Transfer Status: dep for ADL deficits - Shower Transfer Status: dep for ADL deficits - Wheel Chair to Bed Transfer Status: dep for ADL deficits - Other See attached MAR (Medication Administration Record) - Diet Type Continue Regular - Diet - Liquid Texture Continue Regular - Tube Feed Continue N/A - Bladder care per protocol - Weight Bearing Precaution WBAT right LE - Skin care per protocol - Diet - Solid Texture Continue Regular - Shower allowing shower for Dementia, TBI, Stroke, or others - Balance for Weakness - Bed mobility for ADL deficits - Eating for ADL deficits - Hygiene for ADL deficits FUNCTIONAL STATUS: UPDATED AT WEEKLY TEAM CONFERENCE - Bladder Same accident frequency: 7-Ind - No accidents in the past 7 days - Bowel Same accident frequency: 7-Ind - No accidents in the past 7 days - Walking Same score based on distance walked: 0(N/A) - Wheelchair Same score based on distance traveled: 0(N/A) FUNCTIONAL STATUS: - Self-Care A. Eating Usha B. Grooming sup C. Bathing maxA D. Dressing - Upper modA E. Dressing - Lower maxA F. Toileting maxA - Sphincter Control G. Bladder control Amaury H. Bowel control Amaury - Transfers Control I. Bed/Chair/Wheelchair maxA J. Toilet maxA K. Tub/Shower maxA - Locomotion L. Walk/Wheelchair (B) maxA M. Stairs ADNO - Communication N. Comprehension (B) sup O. Expression (B) sup - Social Cognition P. Social Interaction Usha Q. Problem Solving sup R. Memory sup - Endurance Poor - Balance Poor - Safety Awareness Poor QI SCORES: - Self-Care A. Eating 03-Partial/moderate assistance B. Oral hygiene 02-Substantial/maximal assistance C. Toileting hygiene 02-Substantial/maximal assistance E. Shower/bathe self 02-Substantial/maximal assistance F. Upper body dressing 02-Substantial/maximal assistance G. Lower body dressing 02-Substantial/maximal assistance H. Putting on/taking off footwear 88-Not attempted due to medical condition or safety concerns - Mobility M. 1 step (curb) 88-Not attempted due to medical condition or safety concerns N. 4 steps 88-Not attempted due to medical condition or safety concerns O. 12 steps 88-Not attempted due to medical condition or safety concerns P. Picking up object 88-Not attempted due to medical condition or safety concerns R. Wheel 50 feet with two turns 88-Not attempted due to medical condition or safety concerns A. Roll left and right 03-Partial/moderate assistance B. Sit to lying 03-Partial/moderate assistance C. Lying to sitting on side of bed 03-Partial/moderate assistance D. Sit to stand 02-Substantial/maximal assistance E. Chair/[id number] transfer 02-Substantial/maximal assistance F. Toilet transfer 88-Not attempted due to medical condition or safety concerns G. Car transfer 88-Not attempted due to medical condition or safety concerns I. Walk 10 feet 88-Not attempted due to medical condition or safety concerns J. Walk 50 feet with two turns 88-Not attempted due to medical condition or safety concerns K. Walk 150 feet 88-Not attempted due to medical condition or safety concerns L. Walking 10 feet on uneven surfaces 88-Not attempted due to medical condition or safety concerns S. Wheel 150 feet 88-Not attempted due to medical condition or safety concerns - Bladder and Bowel Bladder continence Bowel continence - Endurance Fair - Balance Fair - Safety Awareness Fair CURRENT [facility]. DEFICITS: Endurance, Balance, Self-Care, Safety Awareness, and Mobility SIGNATURE PANEL: (CDT)
[2019-12-06] MEDS: ATORVASTATIN 20 MG TAB PO SCH (19:59)
[2019-12-06] MEDS: TRAZODONE 50 MG TABLET PO PRN (20:00)
[2019-12-07] MEDS: carvediloL 3.125 MG TAB PO SCH ×2 (04:59→17:49)
[2019-12-07 06:29] LABS: Absolute Lymphocytes (CBC) 1.3 K/uL (0.7-4.9); Basophils % 0.6 % (0-1.3); Lymphocytes % 30.5 % (15.3-44.8); MPV 9.7 fL (7.6-11.3); RBC Red Blood Cell Count 3.88 M/uL (4.33-5.43)
[2019-12-07 06:30] LABS: Protime INR 2.36
[2019-12-07 06:37] LABS: Albumin 2.7 g/dL (3.4-5.0); Potassium 4.4 mmol/L (3.5-5.1); Prealbumin 21.8 mg/dL (20-40)
[2019-12-07] MEDS: INSULIN -REGULAR HUMAN 50 UNIT/0.5 ML ML SQ SCH ×4 (07:30→20:00)
[2019-12-07] MEDS: ZINC OXIDE 20% OINTMENT 60gm TOP SCH ×2 (08:00→19:57)
[2019-12-07] MEDS: NICOTINE 7 MG/PAT TD SCH (08:00)
[2019-12-07] MEDS: PANTOPRAZOLE 40MG TABLET PO SCH (08:37)
[2019-12-07] MEDS: CRANBERRY FRUIT EXTRACT 200 MG CAP PO SCH ×2 (08:38→19:55)
[2019-12-07] MEDS: glipiZIDE 5 MG TAB PO SCH (08:38)
[2019-12-07] MEDS: FLUOXETINE 20 MG CAP PO SCH (08:39)
[2019-12-07] MEDS: ASPIRIN 81 MG CHEWABLE TABLET PO SCH (08:39)
[2019-12-07] MEDS: WARFARIN SODIUM 4 MG TAB PO SCH (17:48)
[2019-12-07] MEDS: ATORVASTATIN 20 MG TAB PO SCH (19:59)
[2019-12-07] MEDS: TRAZODONE 50 MG TABLET PO PRN (19:59)
[2019-12-08] MEDS: carvediloL 3.125 MG TAB PO SCH ×2 (05:31→16:07)
[2019-12-08] MEDS: PANTOPRAZOLE 40MG TABLET PO SCH (06:18)
--- NOTE | 2019-12-08 06:43 | R.PN ---
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 SUBJECTIVE: Pt denied any depression. Pt denied any Shortness of Breath. CBC with differential is unremarkable except Hgb of 11.5. Glucose 98 to 111. Prealbumin 27.3. Patient states that pain is under control. ADLs done with supervision to independence. Ambulated 80' with moderate to moderate assistance using a rolling walker. INR 2.41, will give coumadin 8 mg today then recheck INR in the AM. VITAL SIGNS Temperature: 97.5 F SBP/DBP: 117/49 Pulse: 62 Resp: 14 MEDICATION ALLERGIES: No Known Drug Allergies (NKDA) ENVIRONMENTAL ALLERGIES: - Substance Allergies None Known - Other Allergies None Known NURSING: - Shower allowing shower - Bladder care per protocol - Skin care per protocol PRECAUTIONS: - Weight Bearing Precaution WBAT right LE ACTIVITIES OOB only with supervision THERAPIES: - Occupational Therapy Cognitive Retraining. Visual Perceptual Training. - Dietary and Nutrition Adequate Nutrition. Nutritional Education. Nutritional Supplements. - Speech Therapy Cognitive Training. Expressive Language Skills. Memory Strategies. Receptive Language Skills. Speech Intelligibility Training. PHYSICAL EXAM - Gen Alert and awake Lying in bed No apparent distress Oriented to: person, time, and place - Skin No breakdown No abnormalities - Eyes No abnormalities - ENMT No abnormalities - Neck No abnormalities - CVS RRR - Chest No abnormalities - Abd Soft - GI Non distended Deferred - No abnormalities - Ext Mild right lower extremity edema. - MSK 0/5 weakness in right lower extremity, 4/5 right upper extremity strength. - Neuro 0/5 weakness in right lower extremity, 4/5 right upper extremity strength. - Psych No abnormalities ASSESSMENT: Currently, he has deficits of Locomotion, Balance, Transfers Control, Sphincter Control, and Enduranc e.On 11/06/2019 Pt. presented to [facility] with sudden onset of right-side weakness.On 0 he was admitted to [facility] with diagnosis Left hemispheric STROKE.His impairment category is Stroke 01 - Right Body (Left Brain) (01.2).Pt. is now referred to [facility] for acute in-patient rehabilitation in order to maximize patient's functional independence in activi ties of daily living, strength, ROM, and mobility.Pre-morbidly, Pt. was independent/mod-I in Locomoti on, Safety Awareness, Social Cognition, Balance, Transfers Control, Self-Care, and Communication; and he had good Sphincter Control and Endurance.Pt. is a 74 yo Right-handed male of unknown race.- Rehab Goal Patient has realistic goal of being discharged at assistance level 7-Ind to reside at Home with Pt s elf. MDM/PLAN: - Physical Therapy Edema - to improve, our physical therapists will perform initial evaluation of pt's status upon admi ssion and devise an individualized program for Elevation Training, and Lymphedema Therapy Gait dysfunction - to improve, our physical therapists will perform initial evaluation of pt's statu s upon admission and devise an individualized program for Gait Training, and Wheel Chair mobility Inability to transfer - to improve, our physical therapists will perform initial evaluation of pt's status upon admission and devise an individualized program for Bed mobility Need for home safety evaluation - to improve, our physical therapists will perform initial evaluatio n of pt's status upon admission and devise an individualized program for Home Evaluation Need in caregiver upon discharge - to improve, our physical therapists will perform initial evaluati on of pt's status upon admission and devise an individualized program for Caregiver Training New precaution - to improve, our physical therapists will perform initial evaluation of pt's status upon admission and devise an individualized program for Patient precaution education Poor balance - to improve, our physical therapists will perform initial evaluation of pt's status up on admission and devise an individualized program for Balance Training Poor endurance - to improve, our physical therapists will perform initial evaluation of pt's status upon admission and devise an individualized program for Endurance Training Weakness - to improve, our physical therapists will perform initial evaluation of pt's status upon a dmission and devise an individualized program for Aquatic Therapy, Neuromuscular Reeducation, and Str engthening - Occupational Therapy Need for vehicle care specialist - to improve, our occupation therapists will perform initial evaluation of pt's status upon admission and devise an individualized program for Caregiver Training Weakness - to improve, our occupation therapists will perform initial evaluation of pt's status upon admission and devise an individualized program for Aquatic Therapy, Balance, Endurance, UE ROM, and UE strengthening - Cognition - orientation for aphasia - Dressing Status: dep for ADL deficits - Grooming Status: min for ADL deficits - Toilet Transfer Status: dep for ADL deficits - Bed to Chair Transfer squat pivot transfer Status: dep for ADL deficits - Tub Transfer Status: dep for ADL deficits - Shower Transfer Status: dep for ADL deficits - Wheel Chair to Bed Transfer Status: dep for ADL deficits - Other See attached MAR (Medication Administration Record) - Diet Type Continue Regular - Diet - Liquid Texture Continue Regular - Tube Feed Continue N/A - Bladder care per protocol - Weight Bearing Precaution WBAT right LE - Skin care per protocol - Diet - Solid Texture Continue Regular - Shower allowing shower for Dementia, TBI, Stroke, or others - Balance for Weakness - Bed mobility for ADL deficits - Eating for ADL deficits - Hygiene for ADL deficits FUNCTIONAL STATUS: UPDATED AT WEEKLY TEAM CONFERENCE - Bladder Same accident frequency: 7-Ind - No accidents in the past 7 days - Bowel Same accident frequency: 7-Ind - No accidents in the past 7 days - Walking Same score based on distance walked: 0(N/A) - Wheelchair Same score based on distance traveled: 0(N/A) FUNCTIONAL STATUS: - Self-Care A. Eating Usha B. Grooming sup C. Bathing maxA D. Dressing - Upper modA E. Dressing - Lower maxA F. Toileting maxA - Sphincter Control G. Bladder control Amaury H. Bowel control Amaury - Transfers Control I. Bed/Chair/Wheelchair maxA J. Toilet maxA K. Tub/Shower maxA - Locomotion L. Walk/Wheelchair (B) maxA M. Stairs ADNO - Communication N. Comprehension (B) sup O. Expression (B) sup - Social Cognition P. Social Interaction Usha Q. Problem Solving sup R. Memory sup - Endurance Poor - Balance Poor - Safety Awareness Poor QI SCORES: - Self-Care A. Eating 03-Partial/moderate assistance B. Oral hygiene 02-Substantial/maximal assistance C. Toileting hygiene 02-Substantial/maximal assistance E. Shower/bathe self 02-Substantial/maximal assistance F. Upper body dressing 02-Substantial/maximal assistance G. Lower body dressing 02-Substantial/maximal assistance H. Putting on/taking off footwear 88-Not attempted due to medical condition or safety concerns - Mobility M. 1 step (curb) 88-Not attempted due to medical condition or safety concerns N. 4 steps 88-Not attempted due to medical condition or safety concerns O. 12 steps 88-Not attempted due to medical condition or safety concerns P. Picking up object 88-Not attempted due to medical condition or safety concerns R. Wheel 50 feet with two turns 88-Not attempted due to medical condition or safety concerns A. Roll left and right 03-Partial/moderate assistance B. Sit to lying 03-Partial/moderate assistance C. Lying to sitting on side of bed 03-Partial/moderate assistance D. Sit to stand 02-Substantial/maximal assistance E. Chair/[id number]-[id number] transfer 02-Substantial/maximal assistance F. Toilet transfer 88-Not attempted due to medical condition or safety concerns G. Car transfer 88-Not attempted due to medical condition or safety concerns I. Walk 10 feet 88-Not attempted due to medical condition or safety concerns J. Walk 50 feet with two turns 88-Not attempted due to medical condition or safety concerns K. Walk 150 feet 88-Not attempted due to medical condition or safety concerns L. Walking 10 feet on uneven surfaces 88-Not attempted due to medical condition or safety concerns S. Wheel 150 feet 88-Not attempted due to medical condition or safety concerns - Bladder and Bowel Bladder continence Bowel continence - Endurance Fair - Balance Fair - Safety Awareness Fair CURRENT [facility]. DEFICITS: Endurance, Balance, Self-Care, Safety Awareness, and Mobility SIGNATURE PANEL: (CDT)
--- NOTE | 2019-12-08 06:43 | FAST ---
[employer] FORM SHIFT START DATE/TIME: 12/07/2019 07:00 (CDT) SHIFT END DATE/TIME: 12/07/2019 19:00 (CDT) NAME JEREMIE STATON DATE OF : 1945 DATE OF ADMISSION: 11/16/2019 18:41 (CDT) PHONE: AGE: 74 N# [id number] GENDER: Male ENCOUNTER PHYSICIAN: Dr. Job Duque M.D. ADMISSION DIAGNOSIS: - Stroke 01 - Right Body (Left Brain) (01.2) Left hemispheric STROKE. EATING: EATING - STEP 1: Does the patient complete the activity by him/herself with no assistance (physical, verbal/nonverbal cueing, setup/clean-up)? No. EATING - STEP 2: Does the patient need only setup/clean-up assistance from one helper? Yes. 1. [id number] ADMISSION PERFORMANCE: Setup or clean-up assistance CODE: 05 ORAL HYGIENE: ORAL HYGIENE - STEP 1: Does the patient complete the activity by him/herself with no assistance (physical, verbal/nonverbal cueing, setup/clean-up)? No. ORAL HYGIENE - STEP 2: Does the patient need only setup/clean-up assistance from one helper? Yes. 1. [id number] ADMISSION PERFORMANCE: Setup or clean-up assistance CODE: 05 TOILETING HYGIENE: TOILETING HYGIENE - STEP 1: Does the patient complete the activity by him/herself with no assistance (physical, verbal/nonverbal cueing, setup/clean-up)? No. TOILETING HYGIENE - STEP 2: Does the patient need only setup/clean-up assistance from one helper? No. TOILETING HYGIENE - STEP 3: Does the patient need only verbal/nonverbal cueing or touching/steadying/contact guard assistance fro m one helper? No. TOILETING HYGIENE - STEP 4: Does the patient need physical assistance - for example lifting or trunk support from one helper - wi th the helper providing less than half of the effort? No. TOILETING HYGIENE - STEP 5: Does the patient need physical assistance - for example lifting or trunk support from one helper - wi th the helper providing more than half of the effort? Yes. 1. [id number] ADMISSION PERFORMANCE: Substantial/maximal assistance CODE: 02 BATHING: Not assessed/no information CODE: - DRESSING - UPPER BODY: DRESSING - UPPER BODY - STEP 1: Does the patient complete the activity by him/herself with no assistance (physical, verbal/nonverbal cueing, setup/clean-up)? No. DRESSING - UPPER BODY - STEP 2: Does the patient need only setup/clean-up assistance from one helper? No. DRESSING - UPPER BODY - STEP 3: Does the patient need only verbal/nonverbal cueing or touching/steadying/contact guard assistance fro m one helper? No. DRESSING - UPPER BODY - STEP 4: Does the patient need physical assistance - for example lifting or trunk support from one helper - wi th the helper providing less than half of the effort? No. DRESSING - UPPER BODY - STEP 5: Does the patient need physical assistance - for example lifting or trunk support from one helper - wi th the helper providing more than half of the effort? Yes. 1. [id number] ADMISSION PERFORMANCE: Substantial/maximal assistance CODE: 02 DRESSING - LOWER BODY: DRESSING - LOWER BODY - STEP 1: Does the patient complete the activity by him/herself with no assistance (physical, verbal/nonverbal cueing, setup/clean-up)? No. DRESSING - LOWER BODY - STEP 2: Does the patient need only setup/clean-up assistance from one helper? No. DRESSING - LOWER BODY - STEP 3: Does the patient need only verbal/nonverbal cueing or touching/steadying/contact guard assistance fro m one helper? No. DRESSING - LOWER BODY - STEP 4: Does the patient need physical assistance - for example lifting or trunk support from one helper - wi th the helper providing less than half of the effort? No. DRESSING - LOWER BODY - STEP 5: Does the patient need physical assistance - for example lifting or trunk support from one helper - wi th the helper providing more than half of the effort? Yes. 1. [id number] ADMISSION PERFORMANCE: Substantial/maximal assistance CODE: 02 PUTTING ON/TAKING OFF FOOTWEAR: FOOTWEAR - STEP 1: Does the patient complete the activity by him/herself with no assistance (physical, verbal/nonverbal cueing, setup/clean-up)? No. FOOTWEAR - STEP 2: Does the patient need only setup/clean-up assistance from one helper? No. FOOTWEAR - STEP 3: Does the patient need only verbal/nonverbal cueing or touching/steadying/contact guard assistance fro m one helper? No. FOOTWEAR - STEP 4: Does the patient need physical assistance - for example lifting or trunk support from one helper - wi th the helper providing less than half of the effort? No. FOOTWEAR - STEP 5: Does the patient need physical assistance - for example lifting or trunk support from one helper - wi th the helper providing more than half of the effort? Yes. 1. [id number] ADMISSION PERFORMANCE: Substantial/maximal assistance CODE: 02 ROLL LEFT AND RIGHT: ROLL LEFT AND RIGHT - STEP 1: Does the patient complete the activity by him/herself with no assistance (physical, verbal/nonverbal cueing, setup/clean-up)? No. ROLL LEFT AND RIGHT - STEP 2: Does the patient need only setup/clean-up assistance from one helper? No. ROLL LEFT AND RIGHT - STEP 3: Does the patient need only verbal/nonverbal cueing or touching/steadying/contact guard assistance fro m one helper? Yes. 1. [id number] ADMISSION PERFORMANCE: Supervision or touching assistance CODE: 04 SIT TO LYING: SIT TO LYING - STEP 1: Does the patient complete the activity by him/herself with no assistance (physical, verbal/nonverbal cueing, setup/clean-up)? No. SIT TO LYING - STEP 2: Does the patient need only setup/clean-up assistance from one helper? No. SIT TO LYING - STEP 3: Does the patient need only verbal/nonverbal cueing or touching/steadying/contact guard assistance fro m one helper? Yes. 1. [id number] ADMISSION PERFORMANCE: Supervision or touching assistance CODE: 04 LYING TO SITTING: LYING TO SITTING ON SIDE OF BED - STEP 1: Does the patient complete the activity by him/herself with no assistance (physical, verbal/nonverbal cueing, setup/clean-up)? No. LYING TO SITTING ON SIDE OF BED - STEP 2: Does the patient need only setup/clean-up assistance from one helper? No. LYING TO SITTING ON SIDE OF BED - STEP 3: Does the patient need only verbal/nonverbal cueing or touching/steadying/contact guard assistance fro m one helper? No. LYING TO SITTING ON SIDE OF BED - STEP 4: Does the patient need physical assistance - for example lifting or trunk support from one helper - wi th the helper providing less than half of the effort? Yes. 1. [id number] ADMISSION PERFORMANCE: Partial/moderate assistance CODE: 03 SIT TO STAND: SIT TO STAND - STEP 1: Does the patient complete the activity by him/herself with no assistance (physical, verbal/nonverbal cueing, setup/clean-up)? No. SIT TO STAND - STEP 2: Does the patient need only setup/clean-up assistance from one helper? No. SIT TO STAND - STEP 3: Does the patient need only verbal/nonverbal cueing or touching/steadying/contact guard assistance fro m one helper? No. SIT TO STAND - STEP 4: Does the patient need physical assistance - for example lifting or trunk support from one helper - wi th the helper providing less than half of the effort? Yes. 1. [id number] ADMISSION PERFORMANCE: Partial/moderate assistance CODE: 03 TRANSFERS: BED, CHAIR: CHAIR/[id number] TRANSFER - STEP 1: Does the patient complete the activity by him/herself with no assistance (physical, verbal/nonverbal cueing, setup/clean-up)? No. CHAIR/[id number] TRANSFER - STEP 2: Does the patient need only setup/clean-up assistance from one helper? No. CHAIR/[id number] TRANSFER - STEP 3: Does the patient need only verbal/nonverbal cueing or touching/steadying/contact guard assistance fro m one helper? No. CHAIR/[id number] TRANSFER - STEP 4: Does the patient need physical assistance - for example lifting or trunk support from one helper - wi th the helper providing less than half of the effort? Yes. 1. [id number] ADMISSION PERFORMANCE: Partial/moderate assistance CODE: 03 TRANSFER TOILET: TOILET TRANSFER - STEP 1: Does the patient complete the activity by him/herself with no assistance (physical, verbal/nonverbal cueing, setup/clean-up)? No. TOILET TRANSFER - STEP 2: Does the patient need only setup/clean-up assistance from one helper? No. TOILET TRANSFER - STEP 3: Does the patient need only verbal/nonverbal cueing or touching/steadying/contact guard assistance fro m one helper? No. TOILET TRANSFER - STEP 4: Does the patient need physical assistance - for example lifting or trunk support from one helper - wi th the helper providing less than half of the effort? Yes. 1. [id number] ADMISSION PERFORMANCE: Partial/moderate assistance CODE: 03 TRANSFERS: CAR: Not assessed/no information CODE: - WALK 10 FEET: Not assessed/no information CODE: - 1 STEP (CURB): Not assessed/no information CODE: - PICKING UP OBJECT: Not assessed/no information CODE: - DOES THE PATIENT USE A WHEELCHAIR/SCOOTER? Q1. DOES THE PATIENT USE A WHEELCHAIR/SCOOTER?: Yes CODE: 1 WHEEL 50 FEET WITH TWO TURNS: WHEEL 50 FEET WITH TWO TURNS - STEP 1: Does the patient complete the activity by him/herself with no assistance (physical, verbal/nonverbal cueing, setup/clean-up)? No. WHEEL 50 FEET WITH TWO TURNS - STEP 2: Does the patient need only setup/clean-up assistance from one helper? Yes. 1. [id number] ADMISSION PERFORMANCE: Setup or clean-up assistance CODE: 05 INDICATE THE TYPE OF WHEELCHAIR/SCOOTER USED: RR1. INDICATE THE TYPE OF WHEELCHAIR/SCOOTER USED.: Manual CODE: 1 WHEEL 150 FEET: Not assessed/no information CODE: - INDICATE THE TYPE OF WHEELCHAIR/SCOOTER USED: SS1. INDICATE THE TYPE OF WHEELCHAIR/SCOOTER USED.: Manual CODE: 1 BLADDER AND BOWEL: H350. BLADDER CONTINENCE (3-DAY ASSESSMENT PERIOD): Incontinent daily (at least once a day) CODE: 3 H400. BOWEL CONTINENCE (3-DAY ASSESSMENT PERIOD): Always continent CODE: 0 SIGNATURE PANEL: The following modified sections: 1. [id number] Admission Performance, 1. [id number] Admission Performance, 1. [id number] Admission Performance, 1. [id number] Admission Performance, 1. HX9297e Admission Performance, 1. HT6090z Admission Performance, 1. [id number] Admission Performance, 1. [id number] Admission Performance , 1. [id number] Admission Performance, 1. [id number] Admission Performance, 1. [id number] Admission Performanc e, 1. [id number] Admission Performance, 1. [id number] Admission Performance, Q1. Does the patient use a whe elchair/scooter?, 1. [id number] Admission Performance, RR1. Indicate the type of wheelchair/scooter used ., Code, SS1. Indicate the type of wheelchair/scooter used., H350. Bladder Continence (3-day assessme nt period), H400. Bowel Continence (3-day assessment period) were [electronically] signed by Tabby CooperNRobyn on WedDec 07 2019 11:34:21 GMT-0500 (Central Daylight Time)
[2019-12-08] MEDS: INSULIN -REGULAR HUMAN 50 UNIT/0.5 ML ML SQ SCH ×4 (07:30→20:03)
[2019-12-08 07:35] LABS: Protime INR 1.94
[2019-12-08] MEDS: ASPIRIN 81 MG CHEWABLE TABLET PO SCH (07:58)
[2019-12-08] MEDS: FLUOXETINE 20 MG CAP PO SCH (07:58)
[2019-12-08] MEDS: glipiZIDE 5 MG TAB PO SCH (07:58)
[2019-12-08] MEDS: CRANBERRY FRUIT EXTRACT 200 MG CAP PO SCH ×2 (07:58→20:03)
[2019-12-08] MEDS: ACETAMINOPHEN 500 MG TAB PO PRN (07:59)
[2019-12-08] MEDS: ZINC OXIDE 20% OINTMENT 60gm TOP SCH ×2 (08:00→20:00)
[2019-12-08] MEDS: NICOTINE 7 MG/PAT TD SCH (08:00)
--- NOTE | 2019-12-08 09:42 | P.RH.PN ---
Estimated Length of Stay: 24 Expected Discharge Date: 12/09/19 Discharge Disposition Plan: Home Family Support: Yes Long-Term Goal: Mobility, Transfers, Self Care Vital Signs: Last Vital Signs Temp 98.2 F 12/08/19 08:00 Pulse 64 12/08/19 08:00 Resp 16 12/08/19 08:00 BP 102/44 L 12/08/19 08:00 Pulse Ox 96 12/08/19 08:00 Laboratory: Laboratory Last Values WBC 4.2 K/uL (4.3-10.9) L D 12/07/19 06:02 RBC 3.88 M/uL (4.33-5.43) L 12/07/19 06:02 Hgb 11.0 g/dL (13.6-17.9) L 12/07/19 06:02 Hct 33.0 % (39.6-49.0) L 12/07/19 06:02 MCV 85.0 fL (80-100) 12/07/19 06:02 MCH 28.3 pg (27.0-35.0) 12/07/19 06:02 MCHC 33.3 g/dL (32.0-36.0) 12/07/19 06:02 RDW 14.7 % (12.1-15.2) 12/07/19 06:02 Plt Count 101 K/uL (152-406) L 12/07/19 06:02 MPV 9.7 fL (7.6-11.3) 12/07/19 06:02 Neutrophils % 56.1 % (41.7-73.7) 12/07/19 06:02 Lymphocytes % 30.5 % (15.3-44.8) 12/07/19 06:02 Monocytes % 9.7 % (3.3-12.3) 12/07/19 06:02 Eosinophils % 3.1 % (0-4.4) 12/07/19 06:02 Basophils % 0.6 % (0-1.3) 12/07/19 06:02 Absolute Neutrophils 2.4 K/uL (1.8-8.0) 12/07/19 06:02 Absolute Lymphocytes 1.3 K/uL (0.7-4.9) 12/07/19 06:02 Absolute Monocytes 0.4 K/uL (0.1-1.3) 12/07/19 06:02 Absolute Eosinophils 0.1 K/uL (0-0.5) 12/07/19 06:02 Absolute Basophils 0.0 K/uL (0-0.5) 12/07/19 06:02 Platelet Estimate Decr 11/17/19 06:00 Giant Platelets Present 11/17/19 06:00 Morphology Comment Not seen (NOT SEEN) 11/17/19 06:00 PT 22.6 SECONDS (9.5-12.5) H 12/08/19 06:25 INR 1.94 12/08/19 06:25 Sodium 142 mmol/L (136-145) 12/07/19 06:02 Potassium 4.4 mmol/L (3.5-5.1) 12/07/19 06:02 Chloride 110 mmol/L (98-107) H 12/07/19 06:02 Carbon Dioxide 28 mmol/L (21-32) 12/07/19 06:02 BUN 22 mg/dL (7-18) H 12/07/19 06:02 Creatinine 1.05 mg/dL (0.55-1.3) 12/07/19 06:02 Estimated GFR 69 mL/min (=/>90) L 12/07/19 06:02 Glucose 113 mg/dL (74-106) H 12/07/19 06:02 POC Glucose 99 mg/dL (65-120) 12/08/19 07:25 Hemoglobin A1c 6.6 % (4.2-6.3) H 11/27/19 06:22 Calcium 8.3 mg/dL (8.5-10.1) L 12/07/19 06:02 Magnesium 2.1 mg/dL (1.8-2.4) 11/30/19 06:22 Albumin 2.7 g/dL (3.4-5.0) L 12/07/19 06:02 Prealbumin 21.8 mg/dL (20-40) 12/07/19 06:02 Urine Color Yellow 11/16/19 22:25 Urine Appearance Clear 11/16/19 22:25 Urine pH 6.0 (5.0-7.0) 11/16/19 22:25 Ur Specific [place] >=1.030 (1.005-1.030) 11/16/19 22:25 Glucose (UA)(Auto) 1+ (NEG) H 11/16/19 22:25 Urine Ketones Negative (NEG) 11/16/19 22:25 Urine Blood Negative (NEG) 11/16/19 22:25 Urine Nitrite Negative (NEG) 11/16/19 22:25 Urine Bilirubin Negative (NEG) 11/16/19 22:25 Urine Urobilinogen 1.0 mg/dL (0.2-1.0) 11/16/19 22:25 Ur Leukocyte Esterase Negative (NEG) 11/16/19 22:25 Urine RBC <5 /HPF (NONE SEEN) 11/16/19 22:25 Urine WBC <5 /HPF (<5) 11/16/19 22:25 Ur Squamous Epith Cells 5-10 /HPF (NONE SEEN) H 11/16/19 22:25 Calcium Oxalate Crystal Many (NONE SEEN) H 11/16/19 22:25 Urine Bacteria <20 /HPF (NONE SEEN) 11/16/19 22:25 Urine Culture Reflexed Not needed 11/16/19 22: Urine Total Protein Negative (NEG) 11/16/19 22:25 SARS-CoV-2 RNA (RT-PCR) Negative (NEGATIVE) 11/17/19 22:00 Smear Scan Ok (OK) 11/17/19 06:00 Weight: 203 lb Wound Present: No Closed Surgical Incision Present: No Negative Pressure Wound Therapy Present: No Physician Update: Labs show INR of 1.94. Will increase coumadin to 9 mg daily. Walked 90' with minimum to moderate assistance with the walker. Medical Issues: HX INCLUDES HTN, TOBACCO ABUSE, THROMBOCYTOPENIA. Pain Issues: TAKING TYLENOL FOR PAIN. Nutritional Needs: ADA 1800 DIET Comment: Zzinc oxide being applied to ALEIDA groin and buttocks. Functional Improvement: pt has demonstrated significant improvemet throughout the week. pt is improving his trunk strength and stability. During standing and during functional movement, pt still tends to lean laterally to the R unless verbally cued and physically steadied. The degree of lean is much less than initially. pt is also starting to demonstrate ability to elicit voluntary muscle contractions of all LE muscles on the R side. pt is demonstrating improvements in motor control as well. pt will continue to demonstrate functional improve as long as intense rehab services are maintained. Summary: Patient's care plan and fpc goals have been reviewed and revised as necessary. Please see the Rehabilitation Signature page for all necessary signatures.
[2019-12-08] MEDS: WARFARIN SODIUM 3 MG TAB PO SCH (16:08)
[2019-12-08] MEDS: ATORVASTATIN 20 MG TAB PO SCH (20:03)
[2019-12-08] MEDS: MELATONIN 3 MG TABLET PO PRN (20:10)
[2019-12-08] MEDS: DOCUSATE NA/SENNA CONC 1 TAB PO PRN (20:10)
[2019-12-09] MEDS: carvediloL 3.125 MG TAB PO SCH ×2 (05:41→17:12)
[2019-12-09 06:44] LABS: Protime INR 2.26
[2019-12-09] MEDS: PANTOPRAZOLE 40MG TABLET PO SCH (07:00)
[2019-12-09] MEDS: INSULIN -REGULAR HUMAN 50 UNIT/0.5 ML ML SQ SCH ×4 (07:30→19:48)
[2019-12-09] MEDS: NICOTINE 7 MG/PAT TD SCH (08:00)
[2019-12-09] MEDS: ZINC OXIDE 20% OINTMENT 60gm TOP SCH ×2 (08:00→19:47)
[2019-12-09] MEDS: CRANBERRY FRUIT EXTRACT 200 MG CAP PO SCH ×2 (08:19→19:47)
[2019-12-09] MEDS: glipiZIDE 5 MG TAB PO SCH (08:20)
[2019-12-09] MEDS: ASPIRIN 81 MG CHEWABLE TABLET PO SCH (08:21)
[2019-12-09] MEDS: FLUOXETINE 20 MG CAP PO SCH (08:21)
[2019-12-09] MEDS: WARFARIN SODIUM 3 MG TAB PO SCH (17:13)
[2019-12-09] MEDS: TRAZODONE 50 MG TABLET PO PRN (19:47)
[2019-12-09] MEDS: ATORVASTATIN 20 MG TAB PO SCH (19:47)
[2019-12-09] MEDS: ACETAMINOPHEN 500 MG TAB PO PRN (19:48)
[2019-12-10] MEDS: carvediloL 3.125 MG TAB PO SCH ×2 (05:10→17:16)
[2019-12-10 06:58] LABS: Protime INR 2.21
[2019-12-10] MEDS: PANTOPRAZOLE 40MG TABLET PO SCH (07:25)
[2019-12-10] MEDS: INSULIN -REGULAR HUMAN 50 UNIT/0.5 ML ML SQ SCH ×4 (07:30→19:53)
[2019-12-10] MEDS: NICOTINE 7 MG/PAT TD SCH (08:00)
[2019-12-10] MEDS: ZINC OXIDE 20% OINTMENT 60gm TOP SCH ×2 (08:00→19:53)
[2019-12-10] MEDS: glipiZIDE 5 MG TAB PO SCH (08:07)
[2019-12-10] MEDS: ASPIRIN 81 MG CHEWABLE TABLET PO SCH (08:07)
[2019-12-10] MEDS: CRANBERRY FRUIT EXTRACT 200 MG CAP PO SCH ×2 (08:07→19:53)
[2019-12-10] MEDS: FLUOXETINE 20 MG CAP PO SCH (08:07)
[2019-12-10] MEDS: WARFARIN SODIUM 3 MG TAB PO SCH (17:16)
[2019-12-10] MEDS: TRAZODONE 50 MG TABLET PO PRN (19:52)
[2019-12-10] MEDS: ACETAMINOPHEN 500 MG TAB PO PRN (19:53)
[2019-12-10] MEDS: ATORVASTATIN 20 MG TAB PO SCH (19:53)
[2019-12-11] MEDS: carvediloL 3.125 MG TAB PO SCH ×2 (05:00→17:02)
[2019-12-11 06:10] LABS: Protime INR 1.98
[2019-12-11] MEDS: PANTOPRAZOLE 40MG TABLET PO SCH (06:25)
[2019-12-11] MEDS: INSULIN -REGULAR HUMAN 50 UNIT/0.5 ML ML SQ SCH ×4 (07:30→20:12)
[2019-12-11] MEDS: NICOTINE 7 MG/PAT TD SCH (08:00)
[2019-12-11] MEDS: ZINC OXIDE 20% OINTMENT 60gm TOP SCH ×2 (08:00→20:00)
[2019-12-11] MEDS: ACETAMINOPHEN 500 MG TAB PO PRN ×2 (08:17→20:15)
[2019-12-11] MEDS: ASPIRIN 81 MG CHEWABLE TABLET PO SCH (08:18)
[2019-12-11] MEDS: CRANBERRY FRUIT EXTRACT 200 MG CAP PO SCH ×2 (08:18→20:11)
[2019-12-11] MEDS: FLUOXETINE 20 MG CAP PO SCH (08:18)
[2019-12-11] MEDS: glipiZIDE 5 MG TAB PO SCH (08:19)
[2019-12-11] MEDS: WARFARIN SODIUM 3 MG TAB PO SCH (17:02)
--- NOTE | 2019-12-11 19:43 | R.PN ---
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 SUBJECTIVE: Pt denied any depression. Pt denied any Shortness of Breath. CBC with differential is unremarkable except Hgb of 11.0 and WBC of 4.2. Glucose 91 to 109. Prealbumi n 27.3. Patient states that pain is under control. ADLs done with supervision to independence. Ambulated 50' x 2' with moderate to minimum assistance using a rolling walker. INR 2.41, will give coumadin 8 mg today then recheck INR in the AM. VITAL SIGNS Temperature: 97.5 F SBP/DBP: 127/46 Pulse: 62 Resp: 16 MEDICATION ALLERGIES: No Known Drug Allergies (NKDA) ENVIRONMENTAL ALLERGIES: - Substance Allergies None Known - Other Allergies None Known NURSING: - Shower allowing shower - Bladder care per protocol - Skin care per protocol PRECAUTIONS: - Weight Bearing Precaution WBAT right LE ACTIVITIES OOB only with supervision THERAPIES: - Occupational Therapy Cognitive Retraining. Visual Perceptual Training. - Dietary and Nutrition Adequate Nutrition. Nutritional Education. Nutritional Supplements. - Speech Therapy Cognitive Training. Expressive Language Skills. Memory Strategies. Receptive Language Skills. Speech Intelligibility Training. PHYSICAL EXAM - Gen Alert and awake Lying in bed No apparent distress Oriented to: person, time, and place - Skin No breakdown No abnormalities - Eyes No abnormalities - ENMT No abnormalities - Neck No abnormalities - CVS RRR - Chest No abnormalities - Abd Soft - GI Non distended Deferred - No abnormalities - Ext Mild right lower extremity edema. - MSK 0/5 weakness in right lower extremity, 4/5 right upper extremity strength. - Neuro 0/5 weakness in right lower extremity, 4/5 right upper extremity strength. - Psych No abnormalities ASSESSMENT: Currently, he has deficits of Locomotion, Balance, Transfers Control, Sphincter Control, and Enduranc e.On 11/06/2019 Pt. presented to [facility] with sudden onset of right-side weakness.On 0 he was admitted to [facility] with diagnosis Left hemispheric STROKE.His impairment category is Stroke 01 - Right Body (Left Brain) (01.2).Pt. is now referred to [facility] for acute in-patient rehabilitation in order to maximize patient's functional independence in activi ties of daily living, strength, ROM, and mobility.Pre-morbidly, Pt. was independent/mod-I in Locomoti on, Safety Awareness, Social Cognition, Balance, Transfers Control, Self-Care, and Communication; and he had good Sphincter Control and Endurance.Pt. is a 74 yo Right-handed male of unknown race.- Rehab Goal Patient has realistic goal of being discharged at assistance level 7-Ind to reside at Home with Pt s elf. MDM/PLAN: - Physical Therapy Edema - to improve, our physical therapists will perform initial evaluation of pt's status upon admi ssion and devise an individualized program for Elevation Training, and Lymphedema Therapy Gait dysfunction - to improve, our physical therapists will perform initial evaluation of pt's statu s upon admission and devise an individualized program for Gait Training, and Wheel Chair mobility Inability to transfer - to improve, our physical therapists will perform initial evaluation of pt's status upon admission and devise an individualized program for Bed mobility Need for home safety evaluation - to improve, our physical therapists will perform initial evaluatio n of pt's status upon admission and devise an individualized program for Home Evaluation Need in caregiver upon discharge - to improve, our physical therapists will perform initial evaluati on of pt's status upon admission and devise an individualized program for Caregiver Training New precaution - to improve, our physical therapists will perform initial evaluation of pt's status upon admission and devise an individualized program for Patient precaution education Poor balance - to improve, our physical therapists will perform initial evaluation of pt's status up on admission and devise an individualized program for Balance Training Poor endurance - to improve, our physical therapists will perform initial evaluation of pt's status upon admission and devise an individualized program for Endurance Training Weakness - to improve, our physical therapists will perform initial evaluation of pt's status upon a dmission and devise an individualized program for Aquatic Therapy, Neuromuscular Reeducation, and Str engthening - Occupational Therapy Need for care attendant - to improve, our occupation therapists will perform initial evaluation of pt's status upon admission and devise an individualized program for Caregiver Training Weakness - to improve, our occupation therapists will perform initial evaluation of pt's status upon admission and devise an individualized program for Aquatic Therapy, Balance, Endurance, UE ROM, and UE strengthening - Cognition - orientation for aphasia - Dressing Status: dep for ADL deficits - Grooming Status: min for ADL deficits - Toilet Transfer Status: dep for ADL deficits - Bed to Chair Transfer squat pivot transfer Status: dep for ADL deficits - Tub Transfer Status: dep for ADL deficits - Shower Transfer Status: dep for ADL deficits - Wheel Chair to Bed Transfer Status: dep for ADL deficits - Other See attached MAR (Medication Administration Record) - Diet Type Continue Regular - Diet - Liquid Texture Continue Regular - Tube Feed Continue N/A - Bladder care per protocol - Weight Bearing Precaution WBAT right LE - Skin care per protocol - Diet - Solid Texture Continue Regular - Shower allowing shower for Dementia, TBI, Stroke, or others - Balance for Weakness - Bed mobility for ADL deficits - Eating for ADL deficits - Hygiene for ADL deficits FUNCTIONAL STATUS: UPDATED AT WEEKLY TEAM CONFERENCE - Bladder Same accident frequency: 7-Ind - No accidents in the past 7 days - Bowel Same accident frequency: 7-Ind - No accidents in the past 7 days - Walking Same score based on distance walked: 0(N/A) - Wheelchair Same score based on distance traveled: 0(N/A) FUNCTIONAL STATUS: - Self-Care A. Eating Usha B. Grooming sup C. Bathing maxA D. Dressing - Upper modA E. Dressing - Lower maxA F. Toileting maxA - Sphincter Control G. Bladder control Amaury H. Bowel control Amaury - Transfers Control I. Bed/Chair/Wheelchair maxA J. Toilet maxA K. Tub/Shower maxA - Locomotion L. Walk/Wheelchair (B) maxA M. Stairs ADNO - Communication N. Comprehension (B) sup O. Expression (B) sup - Social Cognition P. Social Interaction Usha Q. Problem Solving sup R. Memory sup - Endurance Poor - Balance Poor - Safety Awareness Poor QI SCORES: - Self-Care A. Eating 03-Partial/moderate assistance B. Oral hygiene 02-Substantial/maximal assistance C. Toileting hygiene 02-Substantial/maximal assistance E. Shower/bathe self 02-Substantial/maximal assistance F. Upper body dressing 02-Substantial/maximal assistance G. Lower body dressing 02-Substantial/maximal assistance H. Putting on/taking off footwear 88-Not attempted due to medical condition or safety concerns - Mobility M. 1 step (curb) 88-Not attempted due to medical condition or safety concerns N. 4 steps 88-Not attempted due to medical condition or safety concerns O. 12 steps 88-Not attempted due to medical condition or safety concerns P. Picking up object 88-Not attempted due to medical condition or safety concerns R. Wheel 50 feet with two turns 88-Not attempted due to medical condition or safety concerns A. Roll left and right 03-Partial/moderate assistance B. Sit to lying 03-Partial/moderate assistance C. Lying to sitting on side of bed 03-Partial/moderate assistance D. Sit to stand 02-Substantial/maximal assistance E. Chair/[id number] transfer 02-Substantial/maximal assistance F. Toilet transfer 88-Not attempted due to medical condition or safety concerns G. Car transfer 88-Not attempted due to medical condition or safety concerns I. Walk 10 feet 88-Not attempted due to medical condition or safety concerns J. Walk 50 feet with two turns 88-Not attempted due to medical condition or safety concerns K. Walk 150 feet 88-Not attempted due to medical condition or safety concerns L. Walking 10 feet on uneven surfaces 88-Not attempted due to medical condition or safety concerns S. Wheel 150 feet 88-Not attempted due to medical condition or safety concerns - Bladder and Bowel Bladder continence Bowel continence - Endurance Fair - Balance Fair - Safety Awareness Fair CURRENT [facility]. DEFICITS: Endurance, Balance, Self-Care, Safety Awareness, and Mobility SIGNATURE PANEL: (CDT)
[2019-12-11] MEDS: TRAZODONE 50 MG TABLET PO PRN (20:12)
[2019-12-11] MEDS: DOCUSATE NA/SENNA CONC 1 TAB PO PRN (20:12)
[2019-12-11] MEDS: ATORVASTATIN 20 MG TAB PO SCH (20:12)
[2019-12-12] MEDS: carvediloL 3.125 MG TAB PO SCH ×2 (05:18→17:22)
[2019-12-12 06:27] LABS: Protime INR 2.1
[2019-12-12] MEDS: PANTOPRAZOLE 40MG TABLET PO SCH (07:09)
[2019-12-12] MEDS: INSULIN -REGULAR HUMAN 50 UNIT/0.5 ML ML SQ SCH ×3 (07:30→16:30)
[2019-12-12] MEDS: glipiZIDE 5 MG TAB PO SCH (07:51)
[2019-12-12] MEDS: CRANBERRY FRUIT EXTRACT 200 MG CAP PO SCH ×2 (07:51→19:17)
[2019-12-12] MEDS: FLUOXETINE 20 MG CAP PO SCH (07:52)
[2019-12-12] MEDS: ASPIRIN 81 MG CHEWABLE TABLET PO SCH (07:52)
[2019-12-12] MEDS: ZINC OXIDE 20% OINTMENT 60gm TOP SCH ×2 (08:00→19:17)
[2019-12-12] MEDS: NICOTINE 7 MG/PAT TD SCH (08:00)
[2019-12-12] MEDS: WARFARIN SODIUM 3 MG TAB PO SCH (17:21)
--- NOTE | 2019-12-12 17:43 | R.PN ---
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 SUBJECTIVE: Pt denied any depression. Pt denied any Shortness of Breath. CBC with differential is unremarkable except Hgb of 11.0 and WBC of 4.2. Glucose 91 to 109. Prealbumi n 27.3. Patient states that pain is under control. ADLs done with supervision to independence. Ambulated 90' x 2' with contact guard assistance using a rolling walker. INR 2.10, will give coumadin 9 mg daily and recheck INR daily. VITAL SIGNS Temperature: 97.6 F SBP/DBP: 123/50 Pulse: 63 Resp: 16 MEDICATION ALLERGIES: No Known Drug Allergies (NKDA) ENVIRONMENTAL ALLERGIES: - Substance Allergies None Known - Other Allergies None Known NURSING: - Shower allowing shower - Bladder care per protocol - Skin care per protocol PRECAUTIONS: - Weight Bearing Precaution WBAT right LE ACTIVITIES OOB only with supervision THERAPIES: - Occupational Therapy Cognitive Retraining. Visual Perceptual Training. - Dietary and Nutrition Adequate Nutrition. Nutritional Education. Nutritional Supplements. - Speech Therapy Cognitive Training. Expressive Language Skills. Memory Strategies. Receptive Language Skills. Speech Intelligibility Training. PHYSICAL EXAM - Gen Alert and awake Lying in bed No apparent distress Oriented to: person, time, and place - Skin No breakdown No abnormalities - Eyes No abnormalities - ENMT No abnormalities - Neck No abnormalities - CVS RRR - Chest No abnormalities - Abd Soft - GI Non distended Deferred - No abnormalities - Ext Mild right lower extremity edema. - MSK 0/5 weakness in right lower extremity, 4/5 right upper extremity strength. - Neuro 0/5 weakness in right lower extremity, 4/5 right upper extremity strength. - Psych No abnormalities ASSESSMENT: Currently, he has deficits of Locomotion, Balance, Transfers Control, Sphincter Control, and Enduranc e.On 11/06/2019 Pt. presented to [facility] with sudden onset of right-side weakness.On 0 he was admitted to [facility] with diagnosis Left hemispheric STROKE.His impairment category is Stroke 01 - Right Body (Left Brain) (01.2).Pt. is now referred to [facility] for acute in-patient rehabilitation in order to maximize patient's functional independence in activi ties of daily living, strength, ROM, and mobility.Pre-morbidly, Pt. was independent/mod-I in Locomoti on, Safety Awareness, Social Cognition, Balance, Transfers Control, Self-Care, and Communication; and he had good Sphincter Control and Endurance.Pt. is a 74 yo Right-handed male of unknown race.- Rehab Goal Patient has realistic goal of being discharged at assistance level 7-Ind to reside at Home with Pt s elf. MDM/PLAN: - Physical Therapy Edema - to improve, our physical therapists will perform initial evaluation of pt's status upon admi ssion and devise an individualized program for Elevation Training, and Lymphedema Therapy Gait dysfunction - to improve, our physical therapists will perform initial evaluation of pt's statu s upon admission and devise an individualized program for Gait Training, and Wheel Chair mobility Inability to transfer - to improve, our physical therapists will perform initial evaluation of pt's status upon admission and devise an individualized program for Bed mobility Need for home safety evaluation - to improve, our physical therapists will perform initial evaluatio n of pt's status upon admission and devise an individualized program for Home Evaluation Need in caregiver upon discharge - to improve, our physical therapists will perform initial evaluati on of pt's status upon admission and devise an individualized program for Caregiver Training New precaution - to improve, our physical therapists will perform initial evaluation of pt's status upon admission and devise an individualized program for Patient precaution education Poor balance - to improve, our physical therapists will perform initial evaluation of pt's status up on admission and devise an individualized program for Balance Training Poor endurance - to improve, our physical therapists will perform initial evaluation of pt's status upon admission and devise an individualized program for Endurance Training Weakness - to improve, our physical therapists will perform initial evaluation of pt's status upon a dmission and devise an individualized program for Aquatic Therapy, Neuromuscular Reeducation, and Str engthening - Occupational Therapy Need for critical care physician - to improve, our occupation therapists will perform initial evaluation of pt's status upon admission and devise an individualized program for Caregiver Training Weakness - to improve, our occupation therapists will perform initial evaluation of pt's status upon admission and devise an individualized program for Aquatic Therapy, Balance, Endurance, UE ROM, and UE strengthening - Cognition - orientation for aphasia - Dressing Status: dep for ADL deficits - Grooming Status: min for ADL deficits - Toilet Transfer Status: dep for ADL deficits - Bed to Chair Transfer squat pivot transfer Status: dep for ADL deficits - Tub Transfer Status: dep for ADL deficits - Shower Transfer Status: dep for ADL deficits - Wheel Chair to Bed Transfer Status: dep for ADL deficits - Other See attached MAR (Medication Administration Record) - Diet Type Continue Regular - Diet - Liquid Texture Continue Regular - Tube Feed Continue N/A - Bladder care per protocol - Weight Bearing Precaution WBAT right LE - Skin care per protocol - Diet - Solid Texture Continue Regular - Shower allowing shower for Dementia, TBI, Stroke, or others - Balance for Weakness - Bed mobility for ADL deficits - Eating for ADL deficits - Hygiene for ADL deficits FUNCTIONAL STATUS: UPDATED AT WEEKLY TEAM CONFERENCE - Bladder Same accident frequency: 7-Ind - No accidents in the past 7 days - Bowel Same accident frequency: 7-Ind - No accidents in the past 7 days - Walking Same score based on distance walked: 0(N/A) - Wheelchair Same score based on distance traveled: 0(N/A) FUNCTIONAL STATUS: - Self-Care A. Eating Usha B. Grooming sup C. Bathing maxA D. Dressing - Upper modA E. Dressing - Lower maxA F. Toileting maxA - Sphincter Control G. Bladder control Amaury H. Bowel control Amaury - Transfers Control I. Bed/Chair/Wheelchair maxA J. Toilet maxA K. Tub/Shower maxA - Locomotion L. Walk/Wheelchair (B) maxA M. Stairs ADNO - Communication N. Comprehension (B) sup O. Expression (B) sup - Social Cognition P. Social Interaction Usha Q. Problem Solving sup R. Memory sup - Endurance Poor - Balance Poor - Safety Awareness Poor QI SCORES: - Self-Care A. Eating 03-Partial/moderate assistance B. Oral hygiene 02-Substantial/maximal assistance C. Toileting hygiene 02-Substantial/maximal assistance E. Shower/bathe self 02-Substantial/maximal assistance F. Upper body dressing 02-Substantial/maximal assistance G. Lower body dressing 02-Substantial/maximal assistance H. Putting on/taking off footwear 88-Not attempted due to medical condition or safety concerns - Mobility M. 1 step (curb) 88-Not attempted due to medical condition or safety concerns N. 4 steps 88-Not attempted due to medical condition or safety concerns O. 12 steps 88-Not attempted due to medical condition or safety concerns P. Picking up object 88-Not attempted due to medical condition or safety concerns R. Wheel 50 feet with two turns 88-Not attempted due to medical condition or safety concerns A. Roll left and right 03-Partial/moderate assistance B. Sit to lying 03-Partial/moderate assistance C. Lying to sitting on side of bed 03-Partial/moderate assistance D. Sit to stand 02-Substantial/maximal assistance E. Chair/[id number] transfer 02-Substantial/maximal assistance F. Toilet transfer 88-Not attempted due to medical condition or safety concerns G. Car transfer 88-Not attempted due to medical condition or safety concerns I. Walk 10 feet 88-Not attempted due to medical condition or safety concerns J. Walk 50 feet with two turns 88-Not attempted due to medical condition or safety concerns K. Walk 150 feet 88-Not attempted due to medical condition or safety concerns L. Walking 10 feet on uneven surfaces 88-Not attempted due to medical condition or safety concerns S. Wheel 150 feet 88-Not attempted due to medical condition or safety concerns - Bladder and Bowel Bladder continence Bowel continence - Endurance Fair - Balance Fair - Safety Awareness Fair [facility] DEFICITS: Endurance, Balance, Self-Care, Safety Awareness, and Mobility SIGNATURE PANEL: (CDT)
[2019-12-12] MEDS: ATORVASTATIN 20 MG TAB PO SCH (20:12)
[2019-12-12] MEDS: TRAZODONE 50 MG TABLET PO PRN (20:12)
[2019-12-12] MEDS: MELATONIN 3 MG TABLET PO PRN (20:12)
[2019-12-13] MEDS: carvediloL 3.125 MG TAB PO SCH ×2 (05:13→16:56)
[2019-12-13 06:36] LABS: Protime INR 2.42
[2019-12-13] MEDS: PANTOPRAZOLE 40MG TABLET PO SCH (06:48)
[2019-12-13] MEDS: INSULIN -REGULAR HUMAN 50 UNIT/0.5 ML ML SQ SCH ×2 (07:14→16:30)
[2019-12-13] MEDS: ZINC OXIDE 20% OINTMENT 60gm TOP SCH ×2 (08:00→19:57)
[2019-12-13] MEDS: NICOTINE 7 MG/PAT TD SCH (08:00)
[2019-12-13] MEDS: FLUOXETINE 20 MG CAP PO SCH (08:05)
[2019-12-13] MEDS: glipiZIDE 5 MG TAB PO SCH (08:05)
[2019-12-13] MEDS: ASPIRIN 81 MG CHEWABLE TABLET PO SCH (08:05)
[2019-12-13] MEDS: CRANBERRY FRUIT EXTRACT 200 MG CAP PO SCH ×2 (08:05→19:58)
[2019-12-13] MEDS: WARFARIN SODIUM 3 MG TAB PO SCH (16:56)
--- NOTE | 2019-12-13 17:21 | R.PN ---
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 SUBJECTIVE: Pt denied any depression. Pt denied any Shortness of Breath. CBC with differential is unremarkable except Hgb of 11.0 and WBC of 4.2. Glucose 108 to 136. Prealbum in 27.3. Patient states that pain is under control. ADLs done with supervision to independence. Ambulated 150' and 125' with contact guard assistance using a rolling walker. INR 2.42, will give coumadin 9 mg daily and recheck INR daily. VITAL SIGNS Temperature: 97.0 F SBP/DBP: 111/40 Pulse: 60 Resp: 16 MEDICATION ALLERGIES: No Known Drug Allergies (NKDA) ENVIRONMENTAL ALLERGIES: - Substance Allergies None Known - Other Allergies None Known NURSING: - Shower allowing shower - Bladder care per protocol - Skin care per protocol PRECAUTIONS: - Weight Bearing Precaution WBAT right LE ACTIVITIES OOB only with supervision THERAPIES: - Occupational Therapy Cognitive Retraining. Visual Perceptual Training. - Dietary and Nutrition Adequate Nutrition. Nutritional Education. Nutritional Supplements. - Speech Therapy Cognitive Training. Expressive Language Skills. Memory Strategies. Receptive Language Skills. Speech Intelligibility Training. PHYSICAL EXAM - Gen Alert and awake Lying in bed No apparent distress Oriented to: person, time, and place - Skin No breakdown No abnormalities - Eyes No abnormalities - ENMT No abnormalities - Neck No abnormalities - CVS RRR - Chest No abnormalities - Abd Soft - GI Non distended Deferred - No abnormalities - Ext Mild right lower extremity edema. - MSK 0/5 weakness in right lower extremity, 4/5 right upper extremity strength. - Neuro 0/5 weakness in right lower extremity, 4/5 right upper extremity strength. - Psych No abnormalities ASSESSMENT: Currently, he has deficits of Locomotion, Balance, Transfers Control, Sphincter Control, and Enduranc e.On 11/06/2019 Pt. presented to [facility] with sudden onset of right-side weakness.On 0 he was admitted to [facility] with diagnosis Left hemispheric STROKE.His impairment category is Stroke 01 - Right Body (Left Brain) (01.2).Pt. is now referred to [facility] for acute in-patient rehabilitation in order to maximize patient's functional independence in activi ties of daily living, strength, ROM, and mobility.Pre-morbidly, Pt. was independent/mod-I in Locomoti on, Safety Awareness, Social Cognition, Balance, Transfers Control, Self-Care, and Communication; and he had good Sphincter Control and Endurance.Pt. is a 74 yo Right-handed male of unknown race.- Rehab Goal Patient has realistic goal of being discharged at assistance level 7-Ind to reside at Home with Pt s elf. MDM/PLAN: - Physical Therapy Edema - to improve, our physical therapists will perform initial evaluation of pt's status upon admi ssion and devise an individualized program for Elevation Training, and Lymphedema Therapy Gait dysfunction - to improve, our physical therapists will perform initial evaluation of pt's statu s upon admission and devise an individualized program for Gait Training, and Wheel Chair mobility Inability to transfer - to improve, our physical therapists will perform initial evaluation of pt's status upon admission and devise an individualized program for Bed mobility Need for home safety evaluation - to improve, our physical therapists will perform initial evaluatio n of pt's status upon admission and devise an individualized program for Home Evaluation Need in caregiver upon discharge - to improve, our physical therapists will perform initial evaluati on of pt's status upon admission and devise an individualized program for Caregiver Training New precaution - to improve, our physical therapists will perform initial evaluation of pt's status upon admission and devise an individualized program for Patient precaution education Poor balance - to improve, our physical therapists will perform initial evaluation of pt's status up on admission and devise an individualized program for Balance Training Poor endurance - to improve, our physical therapists will perform initial evaluation of pt's status upon admission and devise an individualized program for Endurance Training Weakness - to improve, our physical therapists will perform initial evaluation of pt's status upon a dmission and devise an individualized program for Aquatic Therapy, Neuromuscular Reeducation, and Str engthening - Occupational Therapy Need for rn managed care - to improve, our occupation therapists will perform initial evaluation of pt's status upon admission and devise an individualized program for Caregiver Training Weakness - to improve, our occupation therapists will perform initial evaluation of pt's status upon admission and devise an individualized program for Aquatic Therapy, Balance, Endurance, UE ROM, and UE strengthening - Cognition - orientation for aphasia - Dressing Status: dep for ADL deficits - Grooming Status: min for ADL deficits - Toilet Transfer Status: dep for ADL deficits - Bed to Chair Transfer squat pivot transfer Status: dep for ADL deficits - Tub Transfer Status: dep for ADL deficits - Shower Transfer Status: dep for ADL deficits - Wheel Chair to Bed Transfer Status: dep for ADL deficits - Other See attached MAR (Medication Administration Record) - Diet Type Continue Regular - Diet - Liquid Texture Continue Regular - Tube Feed Continue N/A - Bladder care per protocol - Weight Bearing Precaution WBAT right LE - Skin care per protocol - Diet - Solid Texture Continue Regular - Shower allowing shower for Dementia, TBI, Stroke, or others - Balance for Weakness - Bed mobility for ADL deficits - Eating for ADL deficits - Hygiene for ADL deficits FUNCTIONAL STATUS: UPDATED AT WEEKLY TEAM CONFERENCE - Bladder Same accident frequency: 7-Ind - No accidents in the past 7 days - Bowel Same accident frequency: 7-Ind - No accidents in the past 7 days - Walking Same score based on distance walked: 0(N/A) - Wheelchair Same score based on distance traveled: 0(N/A) FUNCTIONAL STATUS: - Self-Care A. Eating Usha B. Grooming sup C. Bathing maxA D. Dressing - Upper modA E. Dressing - Lower maxA F. Toileting maxA - Sphincter Control G. Bladder control Amaury H. Bowel control Amaury - Transfers Control I. Bed/Chair/Wheelchair maxA J. Toilet maxA K. Tub/Shower maxA - Locomotion L. Walk/Wheelchair (B) maxA M. Stairs ADNO - Communication N. Comprehension (B) sup O. Expression (B) sup - Social Cognition P. Social Interaction Usha Q. Problem Solving sup R. Memory sup - Endurance Poor - Balance Poor - Safety Awareness Poor QI SCORES: - Self-Care A. Eating 03-Partial/moderate assistance B. Oral hygiene 02-Substantial/maximal assistance C. Toileting hygiene 02-Substantial/maximal assistance E. Shower/bathe self 02-Substantial/maximal assistance F. Upper body dressing 02-Substantial/maximal assistance G. Lower body dressing 02-Substantial/maximal assistance H. Putting on/taking off footwear 88-Not attempted due to medical condition or safety concerns - Mobility M. 1 step (curb) 88-Not attempted due to medical condition or safety concerns N. 4 steps 88-Not attempted due to medical condition or safety concerns O. 12 steps 88-Not attempted due to medical condition or safety concerns P. Picking up object 88-Not attempted due to medical condition or safety concerns R. Wheel 50 feet with two turns 88-Not attempted due to medical condition or safety concerns A. Roll left and right 03-Partial/moderate assistance B. Sit to lying 03-Partial/moderate assistance C. Lying to sitting on side of bed 03-Partial/moderate assistance D. Sit to stand 02-Substantial/maximal assistance E. Chair/bmq-kt-[id number] transfer 02-Substantial/maximal assistance F. Toilet transfer 88-Not attempted due to medical condition or safety concerns G. Car transfer 88-Not attempted due to medical condition or safety concerns I. Walk 10 feet 88-Not attempted due to medical condition or safety concerns J. Walk 50 feet with two turns 88-Not attempted due to medical condition or safety concerns K. Walk 150 feet 88-Not attempted due to medical condition or safety concerns L. Walking 10 feet on uneven surfaces 88-Not attempted due to medical condition or safety concerns S. Wheel 150 feet 88-Not attempted due to medical condition or safety concerns - Bladder and Bowel Bladder continence Bowel continence - Endurance Fair - Balance Fair - Safety Awareness Fair CURRENT [facility]. DEFICITS: Endurance, Balance, Self-Care, Safety Awareness, and Mobility SIGNATURE PANEL: (CDT)
[2019-12-13] MEDS: TRAZODONE 50 MG TABLET PO PRN (19:59)
[2019-12-13] MEDS: ATORVASTATIN 20 MG TAB PO SCH (19:59)
[2019-12-13] MEDS: MELATONIN 3 MG TABLET PO PRN (19:59)
[2019-12-13] MEDS: CODEINE 30MG/APAP 300MG TAB PO PRN (21:06)
[2019-12-14] MEDS: carvediloL 3.125 MG TAB PO SCH ×2 (05:05→16:31)
[2019-12-14 06:08] LABS: Basophils % 0.3 % (0-1.3); Hematocrit 33.5 % (39.6-49.0); Lymphocytes % 28.5 % (15.3-44.8); MPV 8.6 fL (7.6-11.3); RBC Red Blood Cell Count 3.92 M/uL (4.33-5.43)
[2019-12-14 06:09] LABS: Protime INR 2.39
[2019-12-14 06:10] LABS: Albumin 2.6 g/dL (3.4-5.0); Potassium 4.1 mmol/L (3.5-5.1); Prealbumin 24.2 mg/dL (20-40)
[2019-12-14] MEDS: PANTOPRAZOLE 40MG TABLET PO SCH (06:15)
[2019-12-14 07:09] LABS: Platelet Estimate DECR
[2019-12-14 07:10] LABS: Blood Morphology Comment NOT SEEN (NOT SEEN)
[2019-12-14] MEDS: INSULIN -REGULAR HUMAN 50 UNIT/0.5 ML ML SQ SCH ×2 (07:30→16:30)
[2019-12-14] MEDS: NICOTINE 7 MG/PAT TD SCH (08:00)
[2019-12-14] MEDS: glipiZIDE 5 MG TAB PO SCH (08:02)
[2019-12-14] MEDS: CRANBERRY FRUIT EXTRACT 200 MG CAP PO SCH ×2 (08:03→19:33)
[2019-12-14] MEDS: FLUOXETINE 20 MG CAP PO SCH (08:03)
[2019-12-14] MEDS: ASPIRIN 81 MG CHEWABLE TABLET PO SCH (08:03)
[2019-12-14] MEDS: CODEINE 30MG/APAP 300MG TAB PO PRN ×2 (08:03→12:00)
[2019-12-14] MEDS: ZINC OXIDE 20% OINTMENT 60gm TOP SCH ×2 (09:07→19:33)
--- NOTE | 2019-12-14 14:42 | FAST ---
OT QI REPORT FORM ENCOUNTER DATE AND TIME: 12/14/2019 08:00 (CDT) NAME JEREMIE STATON DATE OF : 1945 DATE OF ADMISSION: 11/16/2019 18:41 (CDT) PHONE: AGE: 74 N# [id number] GENDER: Male ENCOUNTER PHYSICIAN: Dr. Job Duque M.D. ADMISSION DIAGNOSIS: - Stroke 01 - Right Body (Left Brain) (01.2) Left hemispheric STROKE. EATING: Not assessed/no information CODE: - ORAL HYGIENE: ORAL HYGIENE - STEP 1: Does the patient complete the activity by him/herself with no assistance (physical, verbal/nonverbal cueing, setup/clean-up)? Yes. 1. [id number] ADMISSION PERFORMANCE: Independent CODE: 06 TOILETING HYGIENE: Not assessed/no information CODE: - BATHING: SHOWER/BATHE SELF - STEP 1: Does the patient complete the activity by him/herself with no assistance (physical, verbal/nonverbal cueing, setup/clean-up)? No. SHOWER/BATHE SELF - STEP 2: Does the patient need only setup/clean-up assistance from one helper? No. SHOWER/BATHE SELF - STEP 3: Does the patient need only verbal/nonverbal cueing or touching/steadying/contact guard assistance fro m one helper? Yes. 1. [id number] ADMISSION PERFORMANCE: Supervision or touching assistance CODE: 04 DRESSING - UPPER BODY: DRESSING - UPPER BODY - STEP 1: Does the patient complete the activity by him/herself with no assistance (physical, verbal/nonverbal cueing, setup/clean-up)? No. DRESSING - UPPER BODY - STEP 2: Does the patient need only setup/clean-up assistance from one helper? Yes. 1. [id number] ADMISSION PERFORMANCE: Setup or clean-up assistance CODE: 05 DRESSING - LOWER BODY: DRESSING - LOWER BODY - STEP 1: Does the patient complete the activity by him/herself with no assistance (physical, verbal/nonverbal cueing, setup/clean-up)? No. DRESSING - LOWER BODY - STEP 2: Does the patient need only setup/clean-up assistance from one helper? No. DRESSING - LOWER BODY - STEP 3: Does the patient need only verbal/nonverbal cueing or touching/steadying/contact guard assistance fro m one helper? Yes. 1. [id number] ADMISSION PERFORMANCE: Supervision or touching assistance CODE: 04 PUTTING ON/TAKING OFF FOOTWEAR: FOOTWEAR - STEP 1: Does the patient complete the activity by him/herself with no assistance (physical, verbal/nonverbal cueing, setup/clean-up)? No. FOOTWEAR - STEP 2: Does the patient need only setup/clean-up assistance from one helper? No. FOOTWEAR - STEP 3: Does the patient need only verbal/nonverbal cueing or touching/steadying/contact guard assistance fro m one helper? Yes. 1. [id number] ADMISSION PERFORMANCE: Supervision or touching assistance CODE: 04 DOES THE PATIENT USE A WHEELCHAIR/SCOOTER? CODE: EXPR INDICATE THE TYPE OF WHEELCHAIR/SCOOTER USED: CODE: EXPR INDICATE THE TYPE OF WHEELCHAIR/SCOOTER USED: CODE: EXPR BLADDER AND BOWEL: CODE: EXPR CODE: EXPR SIGNATURE PANEL: The following modified sections: 1. [id number] Admission Performance, 1. [id number] Admission Performance, 1. [id number] Admission Performance, 1. [id number] Admission Performance, 1. [id number] Admission Performance were [electronically] signed by QUINN Bolivar on WedDec 14 2019 14:41:38 GMT-0500 (Central Daylight Time)
[2019-12-14] MEDS: WARFARIN SODIUM 3 MG TAB PO SCH (16:30)
--- NOTE | 2019-12-14 17:55 | R.PN ---
PROGRESS NOTES ENCOUNTER DATE AND TIME: 12/14/2019 17:49 (CDT) NAME JEREMIE STATON DATE OF : 1945 DATE OF ADMISSION: 11/16/2019 18:41 (CDT) Left hemispheric STROKECHIEF COMPLAINT: Left hemispheric stroke with right sided weakness. SUBJECTIVE: Pt denied any depression. Pt denied any Shortness of Breath. WBC 3.7, Hgb of 11.2, glucose 112 to 121. Prealbumin 24.2. Patient states that pain is under control. ADLs done with supervision to independence. Ambulated 100' and 80' with contact guard assistance using a rolling walker. INR 2.39, will give coumadin 9 mg daily and recheck INR daily. VITAL SIGNS Temperature: 97.7 F SBP/DBP: 119/39 Pulse: 67 Resp: 16 MEDICATION ALLERGIES: No Known Drug Allergies (NKDA) ENVIRONMENTAL ALLERGIES: - Substance Allergies None Known - Other Allergies None Known NURSING: - Shower allowing shower - Bladder care per protocol - Skin care per protocol PRECAUTIONS: - Weight Bearing Precaution WBAT right LE ACTIVITIES OOB only with supervision THERAPIES: - Occupational Therapy Cognitive Retraining. Visual Perceptual Training. - Dietary and Nutrition Adequate Nutrition. Nutritional Education. Nutritional Supplements. - Speech Therapy Cognitive Training. Expressive Language Skills. Memory Strategies. Receptive Language Skills. Speech Intelligibility Training. PHYSICAL EXAM - Gen Alert and awake Lying in bed No apparent distress Oriented to: person, time, and place - Skin No breakdown No abnormalities - Eyes No abnormalities - ENMT No abnormalities - Neck No abnormalities - CVS RRR - Chest No abnormalities - Abd Soft - GI Non distended Deferred - No abnormalities - Ext Mild right lower extremity edema. - MSK 0/5 weakness in right lower extremity, 4/5 right upper extremity strength. - Neuro 0/5 weakness in right lower extremity, 4/5 right upper extremity strength. - Psych No abnormalities ASSESSMENT: Currently, he has deficits of Locomotion, Balance, Transfers Control, Sphincter Control, and Enduranc e.On 11/06/2019 Pt. presented to [facility] with sudden onset of right-side weakness.On 0 he was admitted to [facility] with diagnosis Left hemispheric STROKE.His impairment category is Stroke 01 - Right Body (Left Brain) (01.2).Pt. is now referred to [facility] for acute in-patient rehabilitation in order to maximize patient's functional independence in activi ties of daily living, strength, ROM, and mobility.Pre-morbidly, Pt. was independent/mod-I in Locomoti on, Safety Awareness, Social Cognition, Balance, Transfers Control, Self-Care, and Communication; and he had good Sphincter Control and Endurance.Pt. is a 74 yo Right-handed male of unknown race.- Rehab Goal Patient has realistic goal of being discharged at assistance level 7-Ind to reside at Home with Pt s elf. MDM/PLAN: - Physical Therapy Edema - to improve, our physical therapists will perform initial evaluation of pt's status upon admi ssion and devise an individualized program for Elevation Training, and Lymphedema Therapy Gait dysfunction - to improve, our physical therapists will perform initial evaluation of pt's statu s upon admission and devise an individualized program for Gait Training, and Wheel Chair mobility Inability to transfer - to improve, our physical therapists will perform initial evaluation of pt's status upon admission and devise an individualized program for Bed mobility Need for home safety evaluation - to improve, our physical therapists will perform initial evaluatio n of pt's status upon admission and devise an individualized program for Home Evaluation Need in caregiver upon discharge - to improve, our physical therapists will perform initial evaluati on of pt's status upon admission and devise an individualized program for Caregiver Training New precaution - to improve, our physical therapists will perform initial evaluation of pt's status upon admission and devise an individualized program for Patient precaution education Poor balance - to improve, our physical therapists will perform initial evaluation of pt's status up on admission and devise an individualized program for Balance Training Poor endurance - to improve, our physical therapists will perform initial evaluation of pt's status upon admission and devise an individualized program for Endurance Training Weakness - to improve, our physical therapists will perform initial evaluation of pt's status upon a dmission and devise an individualized program for Aquatic Therapy, Neuromuscular Reeducation, and Str engthening - Occupational Therapy Need for medical care evaluation specialist - to improve, our occupation therapists will perform initial evaluation of pt's status upon admission and devise an individualized program for Caregiver Training Weakness - to improve, our occupation therapists will perform initial evaluation of pt's status upon admission and devise an individualized program for Aquatic Therapy, Balance, Endurance, UE ROM, and UE strengthening - Cognition - orientation for aphasia - Dressing Status: dep for ADL deficits - Grooming Status: min for ADL deficits - Toilet Transfer Status: dep for ADL deficits - Bed to Chair Transfer squat pivot transfer Status: dep for ADL deficits - Tub Transfer Status: dep for ADL deficits - Shower Transfer Status: dep for ADL deficits - Wheel Chair to Bed Transfer Status: dep for ADL deficits - Other See attached MAR (Medication Administration Record) - Diet Type Continue Regular - Diet - Liquid Texture Continue Regular - Tube Feed Continue N/A - Bladder care per protocol - Weight Bearing Precaution WBAT right LE - Skin care per protocol - Diet - Solid Texture Continue Regular - Shower allowing shower for Dementia, TBI, Stroke, or others - Balance for Weakness - Bed mobility for ADL deficits - Eating for ADL deficits - Hygiene for ADL deficits FUNCTIONAL STATUS: UPDATED AT WEEKLY TEAM CONFERENCE - Bladder Same accident frequency: 7-Ind - No accidents in the past 7 days - Bowel Same accident frequency: 7-Ind - No accidents in the past 7 days - Walking Same score based on distance walked: 0(N/A) - Wheelchair Same score based on distance traveled: 0(N/A) FUNCTIONAL STATUS: - Self-Care A. Eating Usha B. Grooming sup C. Bathing maxA D. Dressing - Upper modA E. Dressing - Lower maxA F. Toileting maxA - Sphincter Control G. Bladder control Amaury H. Bowel control Amaury - Transfers Control I. Bed/Chair/Wheelchair maxA J. Toilet maxA K. Tub/Shower maxA - Locomotion L. Walk/Wheelchair (B) maxA M. Stairs ADNO - Communication N. Comprehension (B) sup O. Expression (B) sup - Social Cognition P. Social Interaction Usha Q. Problem Solving sup R. Memory sup - Endurance Poor - Balance Poor - Safety Awareness Poor QI SCORES: - Self-Care A. Eating 03-Partial/moderate assistance B. Oral hygiene 02-Substantial/maximal assistance C. Toileting hygiene 02-Substantial/maximal assistance E. Shower/bathe self 02-Substantial/maximal assistance F. Upper body dressing 02-Substantial/maximal assistance G. Lower body dressing 02-Substantial/maximal assistance H. Putting on/taking off footwear 88-Not attempted due to medical condition or safety concerns - Mobility M. 1 step (curb) 88-Not attempted due to medical condition or safety concerns N. 4 steps 88-Not attempted due to medical condition or safety concerns O. 12 steps 88-Not attempted due to medical condition or safety concerns P. Picking up object 88-Not attempted due to medical condition or safety concerns R. Wheel 50 feet with two turns 88-Not attempted due to medical condition or safety concerns A. Roll left and right 03-Partial/moderate assistance B. Sit to lying 03-Partial/moderate assistance C. Lying to sitting on side of bed 03-Partial/moderate assistance D. Sit to stand 02-Substantial/maximal assistance E. Chair/cep-kg-iemjz transfer 02-Substantial/maximal assistance F. Toilet transfer 88-Not attempted due to medical condition or safety concerns G. Car transfer 88-Not attempted due to medical condition or safety concerns I. Walk 10 feet 88-Not attempted due to medical condition or safety concerns J. Walk 50 feet with two turns 88-Not attempted due to medical condition or safety concerns K. Walk 150 feet 88-Not attempted due to medical condition or safety concerns L. Walking 10 feet on uneven surfaces 88-Not attempted due to medical condition or safety concerns S. Wheel 150 feet 88-Not attempted due to medical condition or safety concerns - Bladder and Bowel Bladder continence Bowel continence - Endurance Fair - Balance Fair - Safety Awareness Fair CURRENT [facility]. DEFICITS: Endurance, Balance, Self-Care, Safety Awareness, and Mobility SIGNATURE PANEL: (CDT)
[2019-12-14] MEDS: DOCUSATE NA/SENNA CONC 1 TAB PO PRN ×2 (19:34→20:11)
[2019-12-14] MEDS: MELATONIN 3 MG TABLET PO PRN (20:11)
[2019-12-14] MEDS: ATORVASTATIN 20 MG TAB PO SCH (20:12)
[2019-12-14] MEDS: TRAZODONE 50 MG TABLET PO PRN (20:12)
[2019-12-15] MEDS: carvediloL 3.125 MG TAB PO SCH ×2 (05:00→17:01)
[2019-12-15] MEDS: PANTOPRAZOLE 40MG TABLET PO SCH ×2 (06:30→07:20)
[2019-12-15 07:18] LABS: Protime INR 2.71
[2019-12-15] MEDS: INSULIN -REGULAR HUMAN 50 UNIT/0.5 ML ML SQ SCH ×2 (07:30→16:30)
[2019-12-15] MEDS: ZINC OXIDE 20% OINTMENT 60gm TOP SCH ×2 (08:00→19:02)
[2019-12-15] MEDS: NICOTINE 7 MG/PAT TD SCH (08:00)
[2019-12-15] MEDS: CODEINE 30MG/APAP 300MG TAB PO PRN ×3 (08:26→18:21)
[2019-12-15] MEDS: ASPIRIN 81 MG CHEWABLE TABLET PO SCH (08:28)
[2019-12-15] MEDS: FLUOXETINE 20 MG CAP PO SCH (08:28)
[2019-12-15] MEDS: glipiZIDE 5 MG TAB PO SCH (08:28)
[2019-12-15] MEDS: CRANBERRY FRUIT EXTRACT 200 MG CAP PO SCH ×2 (08:28→19:02)
--- NOTE | 2019-12-15 09:31 | P.RH.PN ---
Estimated Length of Stay: 37 Expected Discharge Date: 12/22/19 Discharge Disposition Plan: Home Family Support: Yes Senior Care Goal: Mobility, Transfers, Self Care Vital Signs: Last Vital Signs Temp 97.6 F 12/15/19 07:39 Pulse 61 12/15/19 07:39 Resp 16 12/15/19 07:39 BP 116/53 L 12/15/19 07:39 Pulse Ox 96 12/15/19 07:39 Laboratory: Laboratory Last Values WBC 3.7 K/uL (4.3-10.9) L 12/14/19 05:35 RBC 3.92 M/uL (4.33-5.43) L 12/14/19 05:35 Hgb 11.2 g/dL (13.6-17.9) L 12/14/19 05:35 Hct 33.5 % (39.6-49.0) L 12/14/19 05:35 MCV 85.5 fL (80-100) 12/14/19 05:35 MCH 28.6 pg (27.0-35.0) 12/14/19 05:35 MCHC 33.4 g/dL (32.0-36.0) 12/14/19 05:35 RDW 15.0 % (12.1-15.2) 12/14/19 05:35 Plt Count 103 K/uL (152-406) L 12/14/19 05:35 MPV 8.6 fL (7.6-11.3) D 12/14/19 05:35 Neutrophils % 56.8 % (41.7-73.7) 12/14/19 05:35 Lymphocytes % 28.5 % (15.3-44.8) 12/14/19 05:35 Monocytes % 10.3 % (3.3-12.3) 12/14/19 05:35 Eosinophils % 4.1 % (0-4.4) 12/14/19 05:35 Basophils % 0.3 % (0-1.3) 12/14/19 05:35 Absolute Neutrophils 2.1 K/uL (1.8-8.0) 12/14/19 05:35 Segmented Neutrophils 55 % (40-80) 12/14/19 05:35 Absolute Lymphocytes 1.0 K/uL (0.7-4.9) 12/14/19 05:35 Lymphocytes 30 % (15-42) 12/14/19 05:35 Monocytes 10 % (0-10) 12/14/19 05:35 Absolute Monocytes 0.4 K/uL (0.1-1.3) 12/14/19 05:35 Eosinophils 5 % (0-3) H 12/14/19 05:35 Absolute Eosinophils 0.1 K/uL (0-0.5) 12/14/19 05:35 Absolute Basophils 0.0 K/uL (0-0.5) 12/14/19 05:35 Platelet Estimate Decr 12/14/19 05:35 Giant Platelets Present 11/17/19 06:00 Morphology Comment Not seen (NOT SEEN) 12/14/19 05:35 PT 31.4 SECONDS (9.5-12.5) H 12/15/19 07:00 INR 2.71 12/15/19 07:00 Sodium 143 mmol/L (136-145) 12/14/19 05:35 Potassium 4.1 mmol/L (3.5-5.1) 12/14/19 05:35 Chloride 110 mmol/L (98-107) H 12/14/19 05:35 Carbon Dioxide 29 mmol/L (21-32) 12/14/19 05:35 BUN 20 mg/dL (7-18) H 12/14/19 05:35 Creatinine 1.05 mg/dL (0.55-1.3) 12/14/19 05:35 Estimated GFR 69 mL/min (=/>90) L 12/14/19 05:35 Glucose 121 mg/dL (74-106) H 12/14/19 05:35 POC Glucose 120 mg/dL (65-120) 12/15/19 07:32 Hemoglobin A1c 6.6 % (4.2-6.3) H 11/27/19 06:22 Calcium 8.2 mg/dL (8.5-10.1) L 12/14/19 05:35 Magnesium 2.1 mg/dL (1.8-2.4) 11/30/19 06:22 Albumin 2.6 g/dL (3.4-5.0) L 12/14/19 05:35 Prealbumin 24.2 mg/dL (20-40) 12/14/19 05:35 Urine Color Yellow 11/16/19 22:25 Urine Appearance Clear 11/16/19 22:25 Urine pH 6.0 (5.0-7.0) 11/16/19 22:25 Ur Specific Thomson >=1.030 (1.005-1.030) 11/16/19 22:25 Glucose (UA)(Auto) 1+ (NEG) H 11/16/19 22:25 Urine Ketones Negative (NEG) 11/16/19 22: Urine Blood Negative (NEG) 11/16/19 22: Urine Nitrite Negative (NEG) 11/16/19: Urine Bilirubin Negative (NEG) 11/16/19: Urine Urobilinogen 1.0 mg/dL (0.2-1.0) 11/16/19 22: Ur Leukocyte Esterase Negative (NEG) 11/16/19 22:25 Urine RBC <5 /HPF (NONE SEEN) 11/16/19 22:25 Urine WBC <5 /HPF (<5) 11/16/19:25 Ur Squamous Epith Cells 5-10 /HPF (NONE SEEN) H 11/16/19 22:25 Calcium Oxalate Crystal Many (NONE SEEN) H 11/16/19 22:25 Urine Bacteria <20 /HPF (NONE SEEN) 11/16/19 22:25 Urine Culture Reflexed Not needed 11/16/19 22: Urine Total Protein Negative (NEG) 11/16/19 22:25 SARS-CoV-2 RNA (RT-PCR) Negative (NEGATIVE) 11/17/19 22:00 Smear Scan Ok (OK) 11/17/19 06:00 Weight: 212 lb 3 oz Wound Present: No Closed Surgical Incision Present: No Negative Pressure Wound Therapy Present: No Physician Update: Labs rewiewed and are stable. Walking 150' contact guard. Transfers are at minimum assistance. His short term memory is mildly affected. He has difficulty reading due to his stroke. We have asked for more time from insurance. Medical Issues: HX INCLUDES HTN, TOBACCO ABUSE, THROMBOCYTOPENIA, DM. Medication Issues: BP HAS BEEN DECREASING. LISINOPRIL HAS BEEN DC'D AND METOPROLOL HAS BEEN DECREASED. Pain Issues: TAKING TYLENOL FOR PAIN. Nutritional Needs: S/W GALLERY HOST AND KITCHEN WILL INCREASE PORTIONS. Comment: Zinc oxide being applied to ALEIDA groin and buttocks - improvement noted Functional Improvement: Patient has met all short-term goals at this time, and is progressing well toward long-term goals. Patient continues to present w/ good overall work ethic. 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 Please see the Rehabilitation Signature page for all necessary signatures.
[2019-12-15] MEDS: POLYETHYL GLY 3350 17 GM/DOSE PO PRN (14:08)
[2019-12-15] MEDS: WARFARIN SODIUM 3 MG TAB PO SCH (16:53)
[2019-12-15] MEDS: DOCUSATE NA/SENNA CONC 1 TAB PO PRN (19:02)
[2019-12-15] MEDS: TRAZODONE 50 MG TABLET PO PRN (20:02)
[2019-12-15] MEDS: ATORVASTATIN 20 MG TAB PO SCH (20:02)
[2019-12-16] MEDS: carvediloL 3.125 MG TAB PO SCH ×2 (05:12→16:56)
[2019-12-16 06:28] LABS: Protime INR 2.64
[2019-12-16] MEDS: PANTOPRAZOLE 40MG TABLET PO SCH (06:47)
[2019-12-16] MEDS: INSULIN -REGULAR HUMAN 50 UNIT/0.5 ML ML SQ SCH ×2 (07:30→16:18)
[2019-12-16] MEDS: NICOTINE 7 MG/PAT TD SCH (08:00)
[2019-12-16] MEDS: FLUOXETINE 20 MG CAP PO SCH (08:43)
[2019-12-16] MEDS: ASPIRIN 81 MG CHEWABLE TABLET PO SCH (08:43)
[2019-12-16] MEDS: glipiZIDE 5 MG TAB PO SCH (08:43)
[2019-12-16] MEDS: CRANBERRY FRUIT EXTRACT 200 MG CAP PO SCH ×2 (08:43→19:52)
[2019-12-16] MEDS: ZINC OXIDE 20% OINTMENT 60gm TOP SCH ×2 (08:44→19:53)
[2019-12-16] MEDS: ACETAMINOPHEN 500 MG TAB PO PRN (08:58)
[2019-12-16] MEDS: WARFARIN SODIUM 3 MG TAB PO SCH (16:31)
[2019-12-16] MEDS: ATORVASTATIN 20 MG TAB PO SCH (20:03)
[2019-12-17] MEDS: carvediloL 3.125 MG TAB PO SCH ×2 (05:26→17:37)
[2019-12-17 06:50] LABS: Protime INR 2.66
[2019-12-17] MEDS: PANTOPRAZOLE 40MG TABLET PO SCH (06:57)
[2019-12-17] MEDS: INSULIN -REGULAR HUMAN 50 UNIT/0.5 ML ML SQ SCH ×2 (07:30→16:30)
[2019-12-17] MEDS: NICOTINE 7 MG/PAT TD SCH (07:45)
[2019-12-17] MEDS: ZINC OXIDE 20% OINTMENT 60gm TOP SCH ×2 (08:00→19:24)
[2019-12-17] MEDS: CRANBERRY FRUIT EXTRACT 200 MG CAP PO SCH ×2 (09:02→19:24)
[2019-12-17] MEDS: ASPIRIN 81 MG CHEWABLE TABLET PO SCH (09:04)
[2019-12-17] MEDS: FLUOXETINE 20 MG CAP PO SCH (09:05)
[2019-12-17] MEDS: ACETAMINOPHEN 500 MG TAB PO PRN (09:05)
[2019-12-17] MEDS: glipiZIDE 5 MG TAB PO SCH (09:10)
--- NOTE | 2019-12-17 13:38 | FAST ---
[employer] SHIFT START DATE/TIME: 12/17/2019 07:00 (CDT) SHIFT END DATE/TIME: 12/17/2019 19:00 (CDT) NAME JEREMIE STATON DATE OF : 1945 DATE OF ADMISSION: 11/16/2019 18:41 (CDT) PHONE: AGE: 74 N# [id number] GENDER: Male ENCOUNTER PHYSICIAN: Dr. Job Duque M.D. ADMISSION DIAGNOSIS: - Stroke 01 - Right Body (Left Brain) (01.2) Left hemispheric STROKE. EATING: EATING - STEP 1: Does the patient complete the activity by him/herself with no assistance (physical, verbal/nonverbal cueing, setup/clean-up)? No. EATING - STEP 2: Does the patient need only setup/clean-up assistance from one helper? Yes. 1. [id number] ADMISSION PERFORMANCE: Setup or clean-up assistance CODE: 05 ORAL HYGIENE: ORAL HYGIENE - STEP 1: Does the patient complete the activity by him/herself with no assistance (physical, verbal/nonverbal cueing, setup/clean-up)? No. ORAL HYGIENE - STEP 2: Does the patient need only setup/clean-up assistance from one helper? Yes. 1. [id number] ADMISSION PERFORMANCE: Setup or clean-up assistance CODE: 05 TOILETING HYGIENE: TOILETING HYGIENE - STEP 1: Does the patient complete the activity by him/herself with no assistance (physical, verbal/nonverbal cueing, setup/clean-up)? No. TOILETING HYGIENE - STEP 2: Does the patient need only setup/clean-up assistance from one helper? No. TOILETING HYGIENE - STEP 3: Does the patient need only verbal/nonverbal cueing or touching/steadying/contact guard assistance fro m one helper? No. TOILETING HYGIENE - STEP 4: Does the patient need physical assistance - for example lifting or trunk support from one helper - wi th the helper providing less than half of the effort? Yes. 1. [id number] ADMISSION PERFORMANCE: Partial/moderate assistance CODE: 03 BATHING: Not assessed/no information CODE: - DRESSING - UPPER BODY: DRESSING - UPPER BODY - STEP 1: Does the patient complete the activity by him/herself with no assistance (physical, verbal/nonverbal cueing, setup/clean-up)? No. DRESSING - UPPER BODY - STEP 2: Does the patient need only setup/clean-up assistance from one helper? No. DRESSING - UPPER BODY - STEP 3: Does the patient need only verbal/nonverbal cueing or touching/steadying/contact guard assistance fro m one helper? Yes. 1. [id number] ADMISSION PERFORMANCE: Supervision or touching assistance CODE: 04 DRESSING - LOWER BODY: DRESSING - LOWER BODY - STEP 1: Does the patient complete the activity by him/herself with no assistance (physical, verbal/nonverbal cueing, setup/clean-up)? No. DRESSING - LOWER BODY - STEP 2: Does the patient need only setup/clean-up assistance from one helper? No. DRESSING - LOWER BODY - STEP 3: Does the patient need only verbal/nonverbal cueing or touching/steadying/contact guard assistance fro m one helper? No. DRESSING - LOWER BODY - STEP 4: Does the patient need physical assistance - for example lifting or trunk support from one helper - wi th the helper providing less than half of the effort? No. DRESSING - LOWER BODY - STEP 5: Does the patient need physical assistance - for example lifting or trunk support from one helper - wi th the helper providing more than half of the effort? Yes. 1. [id number] ADMISSION PERFORMANCE: Substantial/maximal assistance CODE: 02 PUTTING ON/TAKING OFF FOOTWEAR: FOOTWEAR - STEP 1: Does the patient complete the activity by him/herself with no assistance (physical, verbal/nonverbal cueing, setup/clean-up)? No. FOOTWEAR - STEP 2: Does the patient need only setup/clean-up assistance from one helper? No. FOOTWEAR - STEP 3: Does the patient need only verbal/nonverbal cueing or touching/steadying/contact guard assistance fro m one helper? No. FOOTWEAR - STEP 4: Does the patient need physical assistance - for example lifting or trunk support from one helper - wi th the helper providing less than half of the effort? No. FOOTWEAR - STEP 5: Does the patient need physical assistance - for example lifting or trunk support from one helper - wi th the helper providing more than half of the effort? Yes. 1. [id number] ADMISSION PERFORMANCE: Substantial/maximal assistance CODE: 02 ROLL LEFT AND RIGHT: ROLL LEFT AND RIGHT - STEP 1: Does the patient complete the activity by him/herself with no assistance (physical, verbal/nonverbal cueing, setup/clean-up)? No. ROLL LEFT AND RIGHT - STEP 2: Does the patient need only setup/clean-up assistance from one helper? No. ROLL LEFT AND RIGHT - STEP 3: Does the patient need only verbal/nonverbal cueing or touching/steadying/contact guard assistance fro m one helper? No. ROLL LEFT AND RIGHT - STEP 4: Does the patient need physical assistance - for example lifting or trunk support from one helper - wi th the helper providing less than half of the effort? Yes. 1. [id number] ADMISSION PERFORMANCE: Partial/moderate assistance CODE: 03 SIT TO LYING: SIT TO LYING - STEP 1: Does the patient complete the activity by him/herself with no assistance (physical, verbal/nonverbal cueing, setup/clean-up)? No. SIT TO LYING - STEP 2: Does the patient need only setup/clean-up assistance from one helper? No. SIT TO LYING - STEP 3: Does the patient need only verbal/nonverbal cueing or touching/steadying/contact guard assistance fro m one helper? No. SIT TO LYING - STEP 4: Does the patient need physical assistance - for example lifting or trunk support from one helper - wi th the helper providing less than half of the effort? Yes. 1. [id number] ADMISSION PERFORMANCE: Partial/moderate assistance CODE: 03 LYING TO SITTING: LYING TO SITTING ON SIDE OF BED - STEP 1: Does the patient complete the activity by him/herself with no assistance (physical, verbal/nonverbal cueing, setup/clean-up)? No. LYING TO SITTING ON SIDE OF BED - STEP 2: Does the patient need only setup/clean-up assistance from one helper? No. LYING TO SITTING ON SIDE OF BED - STEP 3: Does the patient need only verbal/nonverbal cueing or touching/steadying/contact guard assistance fro m one helper? Yes. 1. [id number] ADMISSION PERFORMANCE: Supervision or touching assistance CODE: 04 SIT TO STAND: SIT TO STAND - STEP 1: Does the patient complete the activity by him/herself with no assistance (physical, verbal/nonverbal cueing, setup/clean-up)? No. SIT TO STAND - STEP 2: Does the patient need only setup/clean-up assistance from one helper? No. SIT TO STAND - STEP 3: Does the patient need only verbal/nonverbal cueing or touching/steadying/contact guard assistance fro m one helper? No. SIT TO STAND - STEP 4: Does the patient need physical assistance - for example lifting or trunk support from one helper - wi th the helper providing less than half of the effort? Yes. 1. [id number] ADMISSION PERFORMANCE: Partial/moderate assistance CODE: 03 TRANSFERS: BED, CHAIR: CHAIR/[id number] TRANSFER - STEP 1: Does the patient complete the activity by him/herself with no assistance (physical, verbal/nonverbal cueing, setup/clean-up)? No. CHAIR/[id number] TRANSFER - STEP 2: Does the patient need only setup/clean-up assistance from one helper? No. CHAIR/[id number] TRANSFER - STEP 3: Does the patient need only verbal/nonverbal cueing or touching/steadying/contact guard assistance fro m one helper? Yes. 1. [id number] ADMISSION PERFORMANCE: Supervision or touching assistance CODE: 04 TRANSFER TOILET: TOILET TRANSFER - STEP 1: Does the patient complete the activity by him/herself with no assistance (physical, verbal/nonverbal cueing, setup/clean-up)? No. TOILET TRANSFER - STEP 2: Does the patient need only setup/clean-up assistance from one helper? No. TOILET TRANSFER - STEP 3: Does the patient need only verbal/nonverbal cueing or touching/steadying/contact guard assistance fro m one helper? No. TOILET TRANSFER - STEP 4: Does the patient need physical assistance - for example lifting or trunk support from one helper - wi th the helper providing less than half of the effort? Yes. 1. [id number] ADMISSION PERFORMANCE: Partial/moderate assistance CODE: 03 TRANSFERS: CAR: Not assessed/no information CODE: - WALK 10 FEET: Not assessed/no information CODE: - 1 STEP (CURB): Not assessed/no information CODE: - PICKING UP OBJECT: Not assessed/no information CODE: - DOES THE PATIENT USE A WHEELCHAIR/SCOOTER? Q1. DOES THE PATIENT USE A WHEELCHAIR/SCOOTER?: Yes CODE: 1 WHEEL 50 FEET WITH TWO TURNS: WHEEL 50 FEET WITH TWO TURNS - STEP 1: Does the patient complete the activity by him/herself with no assistance (physical, verbal/nonverbal cueing, setup/clean-up)? No. WHEEL 50 FEET WITH TWO TURNS - STEP 2: Does the patient need only setup/clean-up assistance from one helper? Yes. 1. [id number] ADMISSION PERFORMANCE: Setup or clean-up assistance CODE: 05 INDICATE THE TYPE OF WHEELCHAIR/SCOOTER USED: RR1. INDICATE THE TYPE OF WHEELCHAIR/SCOOTER USED.: Manual CODE: 1 WHEEL 150 FEET: Not assessed/no information CODE: - INDICATE THE TYPE OF WHEELCHAIR/SCOOTER USED: SS1. INDICATE THE TYPE OF WHEELCHAIR/SCOOTER USED.: Manual CODE: 1 BLADDER AND BOWEL: H350. BLADDER CONTINENCE (3-DAY ASSESSMENT PERIOD): Incontinent daily (at least once a day) CODE: 3 H400. BOWEL CONTINENCE (3-DAY ASSESSMENT PERIOD): Always continent CODE: 0 SIGNATURE PANEL: The following modified sections: 1. [id number] Admission Performance, 1. [id number] Admission Performance, 1. [id number] Admission Performance, 1. OD2118f Admission Performance, 1. ZB7889t Admission Performance, 1. HB8152i Admission Performance, 1. [id number] Admission Performance, 1. [id number] Admission Performance , 1. [id number] Admission Performance, 1. [id number] Admission Performance, 1. UM0491M Admission Performanc e, 1. [id number] Admission Performance, 1. [id number] Admission Performance, 1. [id number] Admission Performan ce, Q1. Does the patient use a wheelchair/scooter?, 1. AT0842T Admission Performance, RR1. Indicate t he type of wheelchair/scooter used., Code, SS1. Indicate the type of wheelchair/scooter used., H350. Bladder Continence (3-day assessment period), H400. Bowel Continence (3-day assessment period) were [ electronically] signed by Gabrielle Mcgee C.N.A. on WedDec 17 2019 13:38:37 GMT-0500 (Central Daylight Time)
--- NOTE | 2019-12-17 17:08 | R.PN ---
PROGRESS NOTES ENCOUNTER DATE AND TIME: 12/17/2019 17:05 (CDT) NAME JEREMIE STATON DATE OF : 1945 DATE OF ADMISSION: 11/16/2019 18:41 (CDT) Left hemispheric STROKECHIEF COMPLAINT: Left hemispheric stroke with right sided weakness. SUBJECTIVE: Pt denied any depression. Pt denied any Shortness of Breath. WBC 3.7, Hgb of 11.2, glucose 112 to 121. Prealbumin 24.2. Patient states that pain is under control. ADLs done with supervision to independence. Ambulated 250' and 80' with moderate to contact guard assistance using a rolling walker. INR 2.66, will give coumadin 9 mg daily and recheck INR daily. VITAL SIGNS Temperature: 97.5 F SBP/DBP: 120/53 Pulse: 66 Resp: 16 MEDICATION ALLERGIES: No Known Drug Allergies (NKDA) ENVIRONMENTAL ALLERGIES: - Substance Allergies None Known - Other Allergies None Known NURSING: - Shower allowing shower - Bladder care per protocol - Skin care per protocol PRECAUTIONS: - Weight Bearing Precaution WBAT right LE ACTIVITIES OOB only with supervision THERAPIES: - Occupational Therapy Cognitive Retraining. Visual Perceptual Training. - Dietary and Nutrition Adequate Nutrition. Nutritional Education. Nutritional Supplements. - Speech Therapy Cognitive Training. Expressive Language Skills. Memory Strategies. Receptive Language Skills. Speech Intelligibility Training. PHYSICAL EXAM - Gen Alert and awake Lying in bed No apparent distress Oriented to: person, time, and place - Skin No breakdown No abnormalities - Eyes No abnormalities - ENMT No abnormalities - Neck No abnormalities - CVS RRR - Chest No abnormalities - Abd Soft - GI Non distended Deferred - No abnormalities - Ext Mild right lower extremity edema. - MSK 0/5 weakness in right lower extremity, 4/5 right upper extremity strength. - Neuro 0/5 weakness in right lower extremity, 4/5 right upper extremity strength. - Psych No abnormalities ASSESSMENT: Currently, he has deficits of Locomotion, Balance, Transfers Control, Sphincter Control, and Enduranc e.On 11/06/2019 Pt. presented to [facility] with sudden onset of right-side weakness.On 0 he was admitted to [facility] with diagnosis Left hemispheric STROKE.His impairment category is Stroke 01 - Right Body (Left Brain) (01.2).Pt. is now referred to [facility] for acute in-patient rehabilitation in order to maximize patient's functional independence in activi ties of daily living, strength, ROM, and mobility.Pre-morbidly, Pt. was independent/mod-I in Locomoti on, Safety Awareness, Social Cognition, Balance, Transfers Control, Self-Care, and Communication; and he had good Sphincter Control and Endurance.Pt. is a 74 yo Right-handed male of unknown race.- Rehab Goal Patient has realistic goal of being discharged at assistance level 7-Ind to reside at Home with Pt s elf. MDM/PLAN: - Physical Therapy Edema - to improve, our physical therapists will perform initial evaluation of pt's status upon admi ssion and devise an individualized program for Elevation Training, and Lymphedema Therapy Gait dysfunction - to improve, our physical therapists will perform initial evaluation of pt's statu s upon admission and devise an individualized program for Gait Training, and Wheel Chair mobility Inability to transfer - to improve, our physical therapists will perform initial evaluation of pt's status upon admission and devise an individualized program for Bed mobility Need for home safety evaluation - to improve, our physical therapists will perform initial evaluatio n of pt's status upon admission and devise an individualized program for Home Evaluation Need in caregiver upon discharge - to improve, our physical therapists will perform initial evaluati on of pt's status upon admission and devise an individualized program for Caregiver Training New precaution - to improve, our physical therapists will perform initial evaluation of pt's status upon admission and devise an individualized program for Patient precaution education Poor balance - to improve, our physical therapists will perform initial evaluation of pt's status up on admission and devise an individualized program for Balance Training Poor endurance - to improve, our physical therapists will perform initial evaluation of pt's status upon admission and devise an individualized program for Endurance Training Weakness - to improve, our physical therapists will perform initial evaluation of pt's status upon a dmission and devise an individualized program for Aquatic Therapy, Neuromuscular Reeducation, and Str engthening - Occupational Therapy Need for rn complex care - to improve, our occupation therapists will perform initial evaluation of pt's status upon admission and devise an individualized program for Caregiver Training Weakness - to improve, our occupation therapists will perform initial evaluation of pt's status upon admission and devise an individualized program for Aquatic Therapy, Balance, Endurance, UE ROM, and UE strengthening - Cognition - orientation for aphasia - Dressing Status: dep for ADL deficits - Grooming Status: min for ADL deficits - Toilet Transfer Status: dep for ADL deficits - Bed to Chair Transfer squat pivot transfer Status: dep for ADL deficits - Tub Transfer Status: dep for ADL deficits - Shower Transfer Status: dep for ADL deficits - Wheel Chair to Bed Transfer Status: dep for ADL deficits - Other See attached MAR (Medication Administration Record) - Diet Type Continue Regular - Diet - Liquid Texture Continue Regular - Tube Feed Continue N/A - Bladder care per protocol - Weight Bearing Precaution WBAT right LE - Skin care per protocol - Diet - Solid Texture Continue Regular - Shower allowing shower for Dementia, TBI, Stroke, or others - Balance for Weakness - Bed mobility for ADL deficits - Eating for ADL deficits - Hygiene for ADL deficits FUNCTIONAL STATUS: UPDATED AT WEEKLY TEAM CONFERENCE - Bladder Same accident frequency: 7-Ind - No accidents in the past 7 days - Bowel Same accident frequency: 7-Ind - No accidents in the past 7 days - Walking Same score based on distance walked: 0(N/A) - Wheelchair Same score based on distance traveled: 0(N/A) FUNCTIONAL STATUS: - Self-Care A. Eating Usha B. Grooming sup C. Bathing maxA D. Dressing - Upper modA E. Dressing - Lower maxA F. Toileting maxA - Sphincter Control G. Bladder control Amaury H. Bowel control Amaury - Transfers Control I. Bed/Chair/Wheelchair maxA J. Toilet maxA K. Tub/Shower maxA - Locomotion L. Walk/Wheelchair (B) maxA M. Stairs ADNO - Communication N. Comprehension (B) sup O. Expression (B) sup - Social Cognition P. Social Interaction Usha Q. Problem Solving sup R. Memory sup - Endurance Poor - Balance Poor - Safety Awareness Poor QI SCORES: - Self-Care A. Eating 03-Partial/moderate assistance B. Oral hygiene 02-Substantial/maximal assistance C. Toileting hygiene 02-Substantial/maximal assistance E. Shower/bathe self 02-Substantial/maximal assistance F. Upper body dressing 02-Substantial/maximal assistance G. Lower body dressing 02-Substantial/maximal assistance H. Putting on/taking off footwear 88-Not attempted due to medical condition or safety concerns - Mobility M. 1 step (curb) 88-Not attempted due to medical condition or safety concerns N. 4 steps 88-Not attempted due to medical condition or safety concerns O. 12 steps 88-Not attempted due to medical condition or safety concerns P. Picking up object 88-Not attempted due to medical condition or safety concerns R. Wheel 50 feet with two turns 88-Not attempted due to medical condition or safety concerns A. Roll left and right 03-Partial/moderate assistance B. Sit to lying 03-Partial/moderate assistance C. Lying to sitting on side of bed 03-Partial/moderate assistance D. Sit to stand 02-Substantial/maximal assistance E. Chair/uxk-ic-kkavi transfer 02-Substantial/maximal assistance F. Toilet transfer 88-Not attempted due to medical condition or safety concerns G. Car transfer 88-Not attempted due to medical condition or safety concerns I. Walk 10 feet 88-Not attempted due to medical condition or safety concerns J. Walk 50 feet with two turns 88-Not attempted due to medical condition or safety concerns K. Walk 150 feet 88-Not attempted due to medical condition or safety concerns L. Walking 10 feet on uneven surfaces 88-Not attempted due to medical condition or safety concerns S. Wheel 150 feet 88-Not attempted due to medical condition or safety concerns - Bladder and Bowel Bladder continence Bowel continence - Endurance Fair - Balance Fair - Safety Awareness Fair CURRENT [facility]. DEFICITS: Endurance, Balance, Self-Care, Safety Awareness, and Mobility SIGNATURE PANEL: (CDT)
[2019-12-17] MEDS: WARFARIN SODIUM 3 MG TAB PO SCH (17:37)
[2019-12-17] MEDS: CODEINE 30MG/APAP 300MG TAB PO PRN (19:25)
[2019-12-17] MEDS: ATORVASTATIN 20 MG TAB PO SCH (20:00)
[2019-12-17] MEDS: TRAZODONE 50 MG TABLET PO PRN (20:01)
[2019-12-17] MEDS: MELATONIN 3 MG TABLET PO PRN (20:02)
[2019-12-18] MEDS: carvediloL 3.125 MG TAB PO SCH ×2 (04:59→16:33)
[2019-12-18 06:27] LABS: Protime INR 2.47
[2019-12-18] MEDS: PANTOPRAZOLE 40MG TABLET PO SCH (06:27)
[2019-12-18] MEDS: INSULIN -REGULAR HUMAN 50 UNIT/0.5 ML ML SQ SCH ×2 (07:19→16:13)
[2019-12-18] MEDS: CODEINE 30MG/APAP 300MG TAB PO PRN ×4 (07:56→20:04)
[2019-12-18] MEDS: CRANBERRY FRUIT EXTRACT 200 MG CAP PO SCH ×2 (07:57→20:03)
[2019-12-18] MEDS: FLUOXETINE 20 MG CAP PO SCH (07:58)
[2019-12-18] MEDS: glipiZIDE 5 MG TAB PO SCH (07:58)
[2019-12-18] MEDS: ZINC OXIDE 20% OINTMENT 60gm TOP SCH ×2 (09:18→20:05)
[2019-12-18] MEDS: ACETAMINOPHEN 500 MG TAB PO PRN (14:14)
[2019-12-18] MEDS: WARFARIN SODIUM 3 MG TAB PO SCH (16:33)
--- NOTE | 2019-12-18 17:09 | R.PN ---
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 SUBJECTIVE: Pt denied any depression. Pt denied any Shortness of Breath. WBC 3.7, Hgb of 11.2, glucose 81 to 127. Prealbumin 24.2. Patient states that pain is under control. ADLs done with supervision to independence. Ambulated 120', 100' and 130' with contact guard assistance using a rolling walker. INR 2.47, will give coumadin 9 mg daily and recheck INR daily. VITAL SIGNS Temperature: 97.3 F SBP/DBP: 127/53 Pulse: 72 Resp: 16 MEDICATION ALLERGIES: No Known Drug Allergies (NKDA) ENVIRONMENTAL ALLERGIES: - Substance Allergies None Known - Other Allergies None Known NURSING: - Shower allowing shower - Bladder care per protocol - Skin care per protocol PRECAUTIONS: - Weight Bearing Precaution WBAT right LE ACTIVITIES OOB only with supervision THERAPIES: - Occupational Therapy Cognitive Retraining. Visual Perceptual Training. - Dietary and Nutrition Adequate Nutrition. Nutritional Education. Nutritional Supplements. - Speech Therapy Cognitive Training. Expressive Language Skills. Memory Strategies. Receptive Language Skills. Speech Intelligibility Training. PHYSICAL EXAM - Gen Alert and awake Lying in bed No apparent distress Oriented to: person, time, and place - Skin No breakdown No abnormalities - Eyes No abnormalities - ENMT No abnormalities - Neck No abnormalities - CVS RRR - Chest No abnormalities - Abd Soft - GI Non distended Deferred - No abnormalities - Ext Mild right lower extremity edema. - MSK 0/5 weakness in right lower extremity, 4/5 right upper extremity strength. - Neuro 0/5 weakness in right lower extremity, 4/5 right upper extremity strength. - Psych No abnormalities ASSESSMENT: Currently, he has deficits of Locomotion, Balance, Transfers Control, Sphincter Control, and Enduranc e.On 11/06/2019 Pt. presented to [facility] with sudden onset of right-side weakness.On 0 he was admitted to [facility] with diagnosis Left hemispheric STROKE.His impairment category is Stroke 01 - Right Body (Left Brain) (01.2).Pt. is now referred to [facility] for acute in-patient rehabilitation in order to maximize patient's functional independence in activi ties of daily living, strength, ROM, and mobility.Pre-morbidly, Pt. was independent/mod-I in Locomoti on, Safety Awareness, Social Cognition, Balance, Transfers Control, Self-Care, and Communication; and he had good Sphincter Control and Endurance.Pt. is a 74 yo Right-handed male of unknown race.- Rehab Goal Patient has realistic goal of being discharged at assistance level 7-Ind to reside at Home with Pt s elf. MDM/PLAN: - Physical Therapy Edema - to improve, our physical therapists will perform initial evaluation of pt's status upon admi ssion and devise an individualized program for Elevation Training, and Lymphedema Therapy Gait dysfunction - to improve, our physical therapists will perform initial evaluation of pt's statu s upon admission and devise an individualized program for Gait Training, and Wheel Chair mobility Inability to transfer - to improve, our physical therapists will perform initial evaluation of pt's status upon admission and devise an individualized program for Bed mobility Need for home safety evaluation - to improve, our physical therapists will perform initial evaluatio n of pt's status upon admission and devise an individualized program for Home Evaluation Need in caregiver upon discharge - to improve, our physical therapists will perform initial evaluati on of pt's status upon admission and devise an individualized program for Caregiver Training New precaution - to improve, our physical therapists will perform initial evaluation of pt's status upon admission and devise an individualized program for Patient precaution education Poor balance - to improve, our physical therapists will perform initial evaluation of pt's status up on admission and devise an individualized program for Balance Training Poor endurance - to improve, our physical therapists will perform initial evaluation of pt's status upon admission and devise an individualized program for Endurance Training Weakness - to improve, our physical therapists will perform initial evaluation of pt's status upon a dmission and devise an individualized program for Aquatic Therapy, Neuromuscular Reeducation, and Str engthening - Occupational Therapy Need for care center manager - to improve, our occupation therapists will perform initial evaluation of pt's status upon admission and devise an individualized program for Caregiver Training Weakness - to improve, our occupation therapists will perform initial evaluation of pt's status upon admission and devise an individualized program for Aquatic Therapy, Balance, Endurance, UE ROM, and UE strengthening - Cognition - orientation for aphasia - Dressing Status: dep for ADL deficits - Grooming Status: min for ADL deficits - Toilet Transfer Status: dep for ADL deficits - Bed to Chair Transfer squat pivot transfer Status: dep for ADL deficits - Tub Transfer Status: dep for ADL deficits - Shower Transfer Status: dep for ADL deficits - Wheel Chair to Bed Transfer Status: dep for ADL deficits - Other See attached MAR (Medication Administration Record) - Diet Type Continue Regular - Diet - Liquid Texture Continue Regular - Tube Feed Continue N/A - Bladder care per protocol - Weight Bearing Precaution WBAT right LE - Skin care per protocol - Diet - Solid Texture Continue Regular - Shower allowing shower for Dementia, TBI, Stroke, or others - Balance for Weakness - Bed mobility for ADL deficits - Eating for ADL deficits - Hygiene for ADL deficits FUNCTIONAL STATUS: UPDATED AT WEEKLY TEAM CONFERENCE - Bladder Same accident frequency: 7-Ind - No accidents in the past 7 days - Bowel Same accident frequency: 7-Ind - No accidents in the past 7 days - Walking Same score based on distance walked: 0(N/A) - Wheelchair Same score based on distance traveled: 0(N/A) FUNCTIONAL STATUS: - Self-Care A. Eating Usha B. Grooming sup C. Bathing maxA D. Dressing - Upper modA E. Dressing - Lower maxA F. Toileting maxA - Sphincter Control G. Bladder control Amaury H. Bowel control Amaury - Transfers Control I. Bed/Chair/Wheelchair maxA J. Toilet maxA K. Tub/Shower maxA - Locomotion L. Walk/Wheelchair (B) maxA M. Stairs ADNO - Communication N. Comprehension (B) sup O. Expression (B) sup - Social Cognition P. Social Interaction Usha Q. Problem Solving sup R. Memory sup - Endurance Poor - Balance Poor - Safety Awareness Poor QI SCORES: - Self-Care A. Eating 03-Partial/moderate assistance B. Oral hygiene 02-Substantial/maximal assistance C. Toileting hygiene 02-Substantial/maximal assistance E. Shower/bathe self 02-Substantial/maximal assistance F. Upper body dressing 02-Substantial/maximal assistance G. Lower body dressing 02-Substantial/maximal assistance H. Putting on/taking off footwear 88-Not attempted due to medical condition or safety concerns - Mobility M. 1 step (curb) 88-Not attempted due to medical condition or safety concerns N. 4 steps 88-Not attempted due to medical condition or safety concerns O. 12 steps 88-Not attempted due to medical condition or safety concerns P. Picking up object 88-Not attempted due to medical condition or safety concerns R. Wheel 50 feet with two turns 88-Not attempted due to medical condition or safety concerns A. Roll left and right 03-Partial/moderate assistance B. Sit to lying 03-Partial/moderate assistance C. Lying to sitting on side of bed 03-Partial/moderate assistance D. Sit to stand 02-Substantial/maximal assistance E. Chair/onu-zw-[id number] transfer 02-Substantial/maximal assistance F. Toilet transfer 88-Not attempted due to medical condition or safety concerns G. Car transfer 88-Not attempted due to medical condition or safety concerns I. Walk 10 feet 88-Not attempted due to medical condition or safety concerns J. Walk 50 feet with two turns 88-Not attempted due to medical condition or safety concerns K. Walk 150 feet 88-Not attempted due to medical condition or safety concerns L. Walking 10 feet on uneven surfaces 88-Not attempted due to medical condition or safety concerns S. Wheel 150 feet 88-Not attempted due to medical condition or safety concerns - Bladder and Bowel Bladder continence Bowel continence - Endurance Fair - Balance Fair - Safety Awareness Fair CURRENT [facility]. DEFICITS: Endurance, Balance, Self-Care, Safety Awareness, and Mobility SIGNATURE PANEL: (CDT)
[2019-12-18] MEDS: MELATONIN 3 MG TABLET PO PRN (20:03)
[2019-12-18] MEDS: TRAZODONE 50 MG TABLET PO PRN (20:03)
[2019-12-19] MEDS: carvediloL 3.125 MG TAB PO SCH ×2 (05:26→16:41)
[2019-12-19 06:08] LABS: Protime INR 2.51
[2019-12-19] MEDS: PANTOPRAZOLE 40MG TABLET PO SCH (06:28)
[2019-12-19] MEDS: INSULIN -REGULAR HUMAN 50 UNIT/0.5 ML ML SQ SCH ×2 (07:30→16:30)
[2019-12-19] MEDS: ZINC OXIDE 20% OINTMENT 60gm TOP SCH ×2 (08:00→20:03)
[2019-12-19] MEDS: glipiZIDE 5 MG TAB PO SCH (08:02)
[2019-12-19] MEDS: CODEINE 30MG/APAP 300MG TAB PO PRN ×4 (08:04→20:04)
[2019-12-19] MEDS: FLUOXETINE 20 MG CAP PO SCH (08:04)
[2019-12-19] MEDS: POLYETHYL GLY 3350 17 GM/DOSE PO PRN (14:42)
[2019-12-19] MEDS: WARFARIN SODIUM 3 MG TAB PO SCH (16:41)
--- NOTE | 2019-12-19 18:43 | R.PN ---
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 SUBJECTIVE: Pt denied any depression. Pt denied any Shortness of Breath. WBC 3.7, Hgb of 11.2, glucose 107 to 111. Prealbumin 24.2. Patient states that pain is under control. ADLs done with supervision to independence. Ambulated 200', 100' and 130' with contact guard assistance using a rolling walker. INR 2.51, coumadin 9 mg daily and recheck INR daily. VITAL SIGNS Temperature: 97.5 F SBP/DBP: 121/42 Pulse: 62 Resp: 16 MEDICATION ALLERGIES: No Known Drug Allergies (NKDA) ENVIRONMENTAL ALLERGIES: - Substance Allergies None Known - Other Allergies None Known NURSING: - Shower allowing shower - Bladder care per protocol - Skin care per protocol PRECAUTIONS: - Weight Bearing Precaution WBAT right LE ACTIVITIES OOB only with supervision THERAPIES: - Occupational Therapy Cognitive Retraining. Visual Perceptual Training. - Dietary and Nutrition Adequate Nutrition. Nutritional Education. Nutritional Supplements. - Speech Therapy Cognitive Training. Expressive Language Skills. Memory Strategies. Receptive Language Skills. Speech Intelligibility Training. PHYSICAL EXAM - Gen Alert and awake Lying in bed No apparent distress Oriented to: person, time, and place - Skin No breakdown No abnormalities - Eyes No abnormalities - ENMT No abnormalities - Neck No abnormalities - CVS RRR - Chest No abnormalities - Abd Soft - GI Non distended Deferred - No abnormalities - Ext Mild right lower extremity edema. - MSK 0/5 weakness in right lower extremity, 4/5 right upper extremity strength. - Neuro 0/5 weakness in right lower extremity, 4/5 right upper extremity strength. - Psych No abnormalities ASSESSMENT: Currently, he has deficits of Locomotion, Balance, Transfers Control, Sphincter Control, and Enduranc e.On 11/06/2019 Pt. presented to [facility] with sudden onset of right-side weakness.On 0 he was admitted to [facility] with diagnosis Left hemispheric STROKE.His impairment category is Stroke 01 - Right Body (Left Brain) (01.2).Pt. is now referred to [facility] for acute in-patient rehabilitation in order to maximize patient's functional independence in activi ties of daily living, strength, ROM, and mobility.Pre-morbidly, Pt. was independent/mod-I in Locomoti on, Safety Awareness, Social Cognition, Balance, Transfers Control, Self-Care, and Communication; and he had good Sphincter Control and Endurance.Pt. is a 74 yo Right-handed male of unknown race.- Rehab Goal Patient has realistic goal of being discharged at assistance level 7-Ind to reside at Home with Pt s elf. MDM/PLAN: - Physical Therapy Edema - to improve, our physical therapists will perform initial evaluation of pt's status upon admi ssion and devise an individualized program for Elevation Training, and Lymphedema Therapy Gait dysfunction - to improve, our physical therapists will perform initial evaluation of pt's statu s upon admission and devise an individualized program for Gait Training, and Wheel Chair mobility Inability to transfer - to improve, our physical therapists will perform initial evaluation of pt's status upon admission and devise an individualized program for Bed mobility Need for home safety evaluation - to improve, our physical therapists will perform initial evaluatio n of pt's status upon admission and devise an individualized program for Home Evaluation Need in caregiver upon discharge - to improve, our physical therapists will perform initial evaluati on of pt's status upon admission and devise an individualized program for Caregiver Training New precaution - to improve, our physical therapists will perform initial evaluation of pt's status upon admission and devise an individualized program for Patient precaution education Poor balance - to improve, our physical therapists will perform initial evaluation of pt's status up on admission and devise an individualized program for Balance Training Poor endurance - to improve, our physical therapists will perform initial evaluation of pt's status upon admission and devise an individualized program for Endurance Training Weakness - to improve, our physical therapists will perform initial evaluation of pt's status upon a dmission and devise an individualized program for Aquatic Therapy, Neuromuscular Reeducation, and Str engthening - Occupational Therapy Need for healthcare recruiter - to improve, our occupation therapists will perform initial evaluation of pt's status upon admission and devise an individualized program for Caregiver Training Weakness - to improve, our occupation therapists will perform initial evaluation of pt's status upon admission and devise an individualized program for Aquatic Therapy, Balance, Endurance, UE ROM, and UE strengthening - Cognition - orientation for aphasia - Dressing Status: dep for ADL deficits - Grooming Status: min for ADL deficits - Toilet Transfer Status: dep for ADL deficits - Bed to Chair Transfer squat pivot transfer Status: dep for ADL deficits - Tub Transfer Status: dep for ADL deficits - Shower Transfer Status: dep for ADL deficits - Wheel Chair to Bed Transfer Status: dep for ADL deficits - Other See attached MAR (Medication Administration Record) - Diet Type Continue Regular - Diet - Liquid Texture Continue Regular - Tube Feed Continue N/A - Bladder care per protocol - Weight Bearing Precaution WBAT right LE - Skin care per protocol - Diet - Solid Texture Continue Regular - Shower allowing shower for Dementia, TBI, Stroke, or others - Balance for Weakness - Bed mobility for ADL deficits - Eating for ADL deficits - Hygiene for ADL deficits FUNCTIONAL STATUS: UPDATED AT WEEKLY TEAM CONFERENCE - Bladder Same accident frequency: 7-Ind - No accidents in the past 7 days - Bowel Same accident frequency: 7-Ind - No accidents in the past 7 days - Walking Same score based on distance walked: 0(N/A) - Wheelchair Same score based on distance traveled: 0(N/A) FUNCTIONAL STATUS: - Self-Care A. Eating Usha B. Grooming sup C. Bathing maxA D. Dressing - Upper modA E. Dressing - Lower maxA F. Toileting maxA - Sphincter Control G. Bladder control Amaury H. Bowel control Amaury - Transfers Control I. Bed/Chair/Wheelchair maxA J. Toilet maxA K. Tub/Shower maxA - Locomotion L. Walk/Wheelchair (B) maxA M. Stairs ADNO - Communication N. Comprehension (B) sup O. Expression (B) sup - Social Cognition P. Social Interaction Usha Q. Problem Solving sup R. Memory sup - Endurance Poor - Balance Poor - Safety Awareness Poor QI SCORES: - Self-Care A. Eating 03-Partial/moderate assistance B. Oral hygiene 02-Substantial/maximal assistance C. Toileting hygiene 02-Substantial/maximal assistance E. Shower/bathe self 02-Substantial/maximal assistance F. Upper body dressing 02-Substantial/maximal assistance G. Lower body dressing 02-Substantial/maximal assistance H. Putting on/taking off footwear 88-Not attempted due to medical condition or safety concerns - Mobility M. 1 step (curb) 88-Not attempted due to medical condition or safety concerns N. 4 steps 88-Not attempted due to medical condition or safety concerns O. 12 steps 88-Not attempted due to medical condition or safety concerns P. Picking up object 88-Not attempted due to medical condition or safety concerns R. Wheel 50 feet with two turns 88-Not attempted due to medical condition or safety concerns A. Roll left and right 03-Partial/moderate assistance B. Sit to lying 03-Partial/moderate assistance C. Lying to sitting on side of bed 03-Partial/moderate assistance D. Sit to stand 02-Substantial/maximal assistance E. Chair/oyz-gc-brhre transfer 02-Substantial/maximal assistance F. Toilet transfer 88-Not attempted due to medical condition or safety concerns G. Car transfer 88-Not attempted due to medical condition or safety concerns I. Walk 10 feet 88-Not attempted due to medical condition or safety concerns J. Walk 50 feet with two turns 88-Not attempted due to medical condition or safety concerns K. Walk 150 feet 88-Not attempted due to medical condition or safety concerns L. Walking 10 feet on uneven surfaces 88-Not attempted due to medical condition or safety concerns S. Wheel 150 feet 88-Not attempted due to medical condition or safety concerns - Bladder and Bowel Bladder continence Bowel continence - Endurance Fair - Balance Fair - Safety Awareness Fair CURRENT [facility]. DEFICITS: Endurance, Balance, Self-Care, Safety Awareness, and Mobility SIGNATURE PANEL: (CDT)
[2019-12-19] MEDS: TRAZODONE 50 MG TABLET PO PRN (20:04)
[2019-12-19] MEDS: MELATONIN 3 MG TABLET PO PRN (20:04)
[2019-12-20 06:27] LABS: Protime INR 2.38
[2019-12-20] MEDS: glipiZIDE 5 MG TAB PO SCH (07:13)
[2019-12-20] MEDS: ZINC OXIDE 20% OINTMENT 60gm TOP SCH ×2 (07:14→20:00)
[2019-12-20] MEDS: FLUOXETINE 20 MG CAP PO SCH (07:14)
[2019-12-20] MEDS: PANTOPRAZOLE 40MG TABLET PO SCH (07:14)
[2019-12-20] MEDS: INSULIN -REGULAR HUMAN 50 UNIT/0.5 ML ML SQ SCH ×2 (07:27→16:26)
--- NOTE | 2019-12-20 16:04 | FAST ---
OT QI REPORT FORM ENCOUNTER DATE AND TIME: 12/20/2019 08:00 (CDT) NAME JEREMIE STATON DATE OF : 1945 DATE OF ADMISSION: 11/16/2019 18:41 (CDT) PHONE: AGE: 74 N# [id number] GENDER: Male ENCOUNTER PHYSICIAN: Dr. Job Duque M.D. ADMISSION DIAGNOSIS: - Stroke 01 - Right Body (Left Brain) (01.2) Left hemispheric STROKE. EATING: Not assessed/no information CODE: - ORAL HYGIENE: Not assessed/no information CODE: - TOILETING HYGIENE: TOILETING HYGIENE - STEP 1: Does the patient complete the activity by him/herself with no assistance (physical, verbal/nonverbal cueing, setup/clean-up)? No. TOILETING HYGIENE - STEP 2: Does the patient need only setup/clean-up assistance from one helper? No. TOILETING HYGIENE - STEP 3: Does the patient need only verbal/nonverbal cueing or touching/steadying/contact guard assistance fro m one helper? No. TOILETING HYGIENE - STEP 4: Does the patient need physical assistance - for example lifting or trunk support from one helper - wi th the helper providing less than half of the effort? Yes. 1. [id number] ADMISSION PERFORMANCE: Partial/moderate assistance CODE: 03 BATHING: SHOWER/BATHE SELF - STEP 1: Does the patient complete the activity by him/herself with no assistance (physical, verbal/nonverbal cueing, setup/clean-up)? No. SHOWER/BATHE SELF - STEP 2: Does the patient need only setup/clean-up assistance from one helper? No. SHOWER/BATHE SELF - STEP 3: Does the patient need only verbal/nonverbal cueing or touching/steadying/contact guard assistance fro m one helper? No. SHOWER/BATHE SELF - STEP 4: Does the patient need physical assistance - for example lifting or trunk support from one helper - wi th the helper providing less than half of the effort? Yes. 1. [id number] ADMISSION PERFORMANCE: Partial/moderate assistance CODE: 03 DRESSING - UPPER BODY: DRESSING - UPPER BODY - STEP 1: Does the patient complete the activity by him/herself with no assistance (physical, verbal/nonverbal cueing, setup/clean-up)? No. DRESSING - UPPER BODY - STEP 2: Does the patient need only setup/clean-up assistance from one helper? Yes. 1. [id number] ADMISSION PERFORMANCE: Setup or clean-up assistance CODE: 05 DRESSING - LOWER BODY: DRESSING - LOWER BODY - STEP 1: Does the patient complete the activity by him/herself with no assistance (physical, verbal/nonverbal cueing, setup/clean-up)? No. DRESSING - LOWER BODY - STEP 2: Does the patient need only setup/clean-up assistance from one helper? No. DRESSING - LOWER BODY - STEP 3: Does the patient need only verbal/nonverbal cueing or touching/steadying/contact guard assistance fro m one helper? No. DRESSING - LOWER BODY - STEP 4: Does the patient need physical assistance - for example lifting or trunk support from one helper - wi th the helper providing less than half of the effort? Yes. 1. [id number] ADMISSION PERFORMANCE: Partial/moderate assistance CODE: 03 PUTTING ON/TAKING OFF FOOTWEAR: FOOTWEAR - STEP 1: Does the patient complete the activity by him/herself with no assistance (physical, verbal/nonverbal cueing, setup/clean-up)? No. FOOTWEAR - STEP 2: Does the patient need only setup/clean-up assistance from one helper? No. FOOTWEAR - STEP 3: Does the patient need only verbal/nonverbal cueing or touching/steadying/contact guard assistance fro m one helper? Yes. 1. [id number] ADMISSION PERFORMANCE: Supervision or touching assistance CODE: 04 DOES THE PATIENT USE A WHEELCHAIR/SCOOTER? CODE: EXPR INDICATE THE TYPE OF WHEELCHAIR/SCOOTER USED: CODE: EXPR INDICATE THE TYPE OF WHEELCHAIR/SCOOTER USED: CODE: EXPR BLADDER AND BOWEL: CODE: EXPR CODE: EXPR SIGNATURE PANEL: The following modified sections: 1. [id number] Admission Performance, 1. [id number] Admission Performance, 1. [id number] Admission Performance, 1. [id number] Admission Performance, 1. [id number] Admission Performance were [electronically] signed by Sarai Celeste OT on WedDec 20 2019 16:03:38 GMT-0500 ([facility] tra Daylight Time)
[2019-12-20] MEDS: WARFARIN SODIUM 3 MG TAB PO SCH (16:23)
--- NOTE | 2019-12-20 19:28 | R.PN ---
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 SUBJECTIVE: Pt denied any depression. Pt denied any Shortness of Breath. WBC 3.7, Hgb of 11.2, glucose 107 to 111. Prealbumin 24.2. Patient states that pain is under control. ADLs done with supervision to independence. Ambulated 190' and 60' with contact guard to standby assistance using a rolling walker. Self-propelle d a wheelchair 250' with independence. INR 2.38, coumadin 9 mg daily and recheck INR daily. VITAL SIGNS Temperature: 97.6 F SBP/DBP: 119/51 Pulse: 62 Resp: 16 MEDICATION ALLERGIES: No Known Drug Allergies (NKDA) ENVIRONMENTAL ALLERGIES: - Substance Allergies None Known - Other Allergies None Known NURSING: - Shower allowing shower - Bladder care per protocol - Skin care per protocol PRECAUTIONS: - Weight Bearing Precaution WBAT right LE ACTIVITIES OOB only with supervision THERAPIES: - Occupational Therapy Cognitive Retraining. Visual Perceptual Training. - Dietary and Nutrition Adequate Nutrition. Nutritional Education. Nutritional Supplements. - Speech Therapy Cognitive Training. Expressive Language Skills. Memory Strategies. Receptive Language Skills. Speech Intelligibility Training. PHYSICAL EXAM - Gen Alert and awake Lying in bed No apparent distress Oriented to: person, time, and place - Skin No breakdown No abnormalities - Eyes No abnormalities - ENMT No abnormalities - Neck No abnormalities - CVS RRR - Chest No abnormalities - Abd Soft - GI Non distended Deferred - No abnormalities - Ext Mild right lower extremity edema. - MSK 0/5 weakness in right lower extremity, 4/5 right upper extremity strength. - Neuro 0/5 weakness in right lower extremity, 4/5 right upper extremity strength. - Psych No abnormalities ASSESSMENT: Currently, he has deficits of Locomotion, Balance, Transfers Control, Sphincter Control, and Enduranc e.On 11/06/2019 Pt. presented to [facility] with sudden onset of right-side weakness.On 0 he was admitted to [facility] with diagnosis Left hemispheric STROKE.His impairment category is Stroke 01 - Right Body (Left Brain) (01.2).Pt. is now referred to [facility] for acute in-patient rehabilitation in order to maximize patient's functional independence in activi ties of daily living, strength, ROM, and mobility.Pre-morbidly, Pt. was independent/mod-I in Locomoti on, Safety Awareness, Social Cognition, Balance, Transfers Control, Self-Care, and Communication; and he had good Sphincter Control and Endurance.Pt. is a 74 yo Right-handed male of unknown race.- Rehab Goal Patient has realistic goal of being discharged at assistance level 7-Ind to reside at Home with Pt s elf. MDM/PLAN: - Physical Therapy Edema - to improve, our physical therapists will perform initial evaluation of pt's status upon admi ssion and devise an individualized program for Elevation Training, and Lymphedema Therapy Gait dysfunction - to improve, our physical therapists will perform initial evaluation of pt's statu s upon admission and devise an individualized program for Gait Training, and Wheel Chair mobility Inability to transfer - to improve, our physical therapists will perform initial evaluation of pt's status upon admission and devise an individualized program for Bed mobility Need for home safety evaluation - to improve, our physical therapists will perform initial evaluatio n of pt's status upon admission and devise an individualized program for Home Evaluation Need in caregiver upon discharge - to improve, our physical therapists will perform initial evaluati on of pt's status upon admission and devise an individualized program for Caregiver Training New precaution - to improve, our physical therapists will perform initial evaluation of pt's status upon admission and devise an individualized program for Patient precaution education Poor balance - to improve, our physical therapists will perform initial evaluation of pt's status up on admission and devise an individualized program for Balance Training Poor endurance - to improve, our physical therapists will perform initial evaluation of pt's status upon admission and devise an individualized program for Endurance Training Weakness - to improve, our physical therapists will perform initial evaluation of pt's status upon a dmission and devise an individualized program for Aquatic Therapy, Neuromuscular Reeducation, and Str engthening - Occupational Therapy Need for career professional - to improve, our occupation therapists will perform initial evaluation of pt's status upon admission and devise an individualized program for Caregiver Training Weakness - to improve, our occupation therapists will perform initial evaluation of pt's status upon admission and devise an individualized program for Aquatic Therapy, Balance, Endurance, UE ROM, and UE strengthening - Cognition - orientation for aphasia - Dressing Status: dep for ADL deficits - Grooming Status: min for ADL deficits - Toilet Transfer Status: dep for ADL deficits - Bed to Chair Transfer squat pivot transfer Status: dep for ADL deficits - Tub Transfer Status: dep for ADL deficits - Shower Transfer Status: dep for ADL deficits - Wheel Chair to Bed Transfer Status: dep for ADL deficits - Other See attached MAR (Medication Administration Record) - Diet Type Continue Regular - Diet - Liquid Texture Continue Regular - Tube Feed Continue N/A - Bladder care per protocol - Weight Bearing Precaution WBAT right LE - Skin care per protocol - Diet - Solid Texture Continue Regular - Shower allowing shower for Dementia, TBI, Stroke, or others - Balance for Weakness - Bed mobility for ADL deficits - Eating for ADL deficits - Hygiene for ADL deficits FUNCTIONAL STATUS: UPDATED AT WEEKLY TEAM CONFERENCE - Bladder Same accident frequency: 7-Ind - No accidents in the past 7 days - Bowel Same accident frequency: 7-Ind - No accidents in the past 7 days - Walking Same score based on distance walked: 0(N/A) - Wheelchair Same score based on distance traveled: 0(N/A) FUNCTIONAL STATUS: - Self-Care A. Eating Usha B. Grooming sup C. Bathing maxA D. Dressing - Upper modA E. Dressing - Lower maxA F. Toileting maxA - Sphincter Control G. Bladder control Amaury H. Bowel control Amaury - Transfers Control I. Bed/Chair/Wheelchair maxA J. Toilet maxA K. Tub/Shower maxA - Locomotion L. Walk/Wheelchair (B) maxA M. Stairs ADNO - Communication N. Comprehension (B) sup O. Expression (B) sup - Social Cognition P. Social Interaction Usha Q. Problem Solving sup R. Memory sup - Endurance Poor - Balance Poor - Safety Awareness Poor QI SCORES: - Self-Care A. Eating 03-Partial/moderate assistance B. Oral hygiene 02-Substantial/maximal assistance C. Toileting hygiene 02-Substantial/maximal assistance E. Shower/bathe self 02-Substantial/maximal assistance F. Upper body dressing 02-Substantial/maximal assistance G. Lower body dressing 02-Substantial/maximal assistance H. Putting on/taking off footwear 88-Not attempted due to medical condition or safety concerns - Mobility M. 1 step (curb) 88-Not attempted due to medical condition or safety concerns N. 4 steps 88-Not attempted due to medical condition or safety concerns O. 12 steps 88-Not attempted due to medical condition or safety concerns P. Picking up object 88-Not attempted due to medical condition or safety concerns R. Wheel 50 feet with two turns 88-Not attempted due to medical condition or safety concerns A. Roll left and right 03-Partial/moderate assistance B. Sit to lying 03-Partial/moderate assistance C. Lying to sitting on side of bed 03-Partial/moderate assistance D. Sit to stand 02-Substantial/maximal assistance E. Chair/[id number] transfer 02-Substantial/maximal assistance F. Toilet transfer 88-Not attempted due to medical condition or safety concerns G. Car transfer 88-Not attempted due to medical condition or safety concerns I. Walk 10 feet 88-Not attempted due to medical condition or safety concerns J. Walk 50 feet with two turns 88-Not attempted due to medical condition or safety concerns K. Walk 150 feet 88-Not attempted due to medical condition or safety concerns L. Walking 10 feet on uneven surfaces 88-Not attempted due to medical condition or safety concerns S. Wheel 150 feet 88-Not attempted due to medical condition or safety concerns - Bladder and Bowel Bladder continence Bowel continence - Endurance Fair - Balance Fair - Safety Awareness Fair CURRENT [facility]. DEFICITS: Endurance, Balance, Self-Care, Safety Awareness, and Mobility SIGNATURE PANEL: (CDT)
[2019-12-20] MEDS: TRAZODONE 50 MG TABLET PO PRN (20:08)
[2019-12-20] MEDS: CODEINE 30MG/APAP 300MG TAB PO PRN (20:09)
[2019-12-21 06:54] LABS: Absolute Lymphocytes (CBC) 1.2 K/uL (0.7-4.9); Basophils % 0.3 % (0-1.3); Hematocrit 32.2 % (39.6-49.0); Lymphocytes % 27.6 % (15.3-44.8); MPV 8.9 fL (7.6-11.3); RBC Red Blood Cell Count 3.82 M/uL (4.33-5.43)
[2019-12-21 07:03] LABS: Protime INR 2.33
[2019-12-21 07:13] LABS: Albumin 2.5 g/dL (3.4-5.0); Potassium 4.2 mmol/L (3.5-5.1); Prealbumin 17.8 mg/dL (20-40)
[2019-12-21] MEDS: INSULIN -REGULAR HUMAN 50 UNIT/0.5 ML ML SQ SCH ×2 (07:30→16:30)
[2019-12-21] MEDS: PANTOPRAZOLE 40MG TABLET PO SCH (07:52)
[2019-12-21] MEDS: FLUOXETINE 20 MG CAP PO SCH (07:52)
[2019-12-21] MEDS: glipiZIDE 5 MG TAB PO SCH (07:52)
[2019-12-21] MEDS: ZINC OXIDE 20% OINTMENT 60gm TOP SCH ×2 (07:53→20:08)
[2019-12-21] MEDS: WARFARIN SODIUM 3 MG TAB PO SCH (17:11)
--- NOTE | 2019-12-21 17:31 | R.PN ---
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 SUBJECTIVE: Pt denied any depression. Pt denied any Shortness of Breath. WBC 4.3, Hgb of 11.1, glucose 92 to 116. Prealbumin 17.8 Patient states that pain is under control. ADLs done with supervision to independence. Ambulated 150' and 60' with contact guard to standby assistance using a rolling walker. Self-propelle d a wheelchair 250' with independence. INR 2.33, coumadin 9 mg daily and recheck INR daily. VITAL SIGNS Temperature: 98.46 F SBP/DBP: 124/44 Pulse: 60 Resp: 16 MEDICATION ALLERGIES: No Known Drug Allergies (NKDA) ENVIRONMENTAL ALLERGIES: - Substance Allergies None Known - Other Allergies None Known NURSING: - Shower allowing shower - Bladder care per protocol - Skin care per protocol PRECAUTIONS: - Weight Bearing Precaution WBAT right LE ACTIVITIES OOB only with supervision THERAPIES: - Occupational Therapy Cognitive Retraining. Visual Perceptual Training. - Dietary and Nutrition Adequate Nutrition. Nutritional Education. Nutritional Supplements. - Speech Therapy Cognitive Training. Expressive Language Skills. Memory Strategies. Receptive Language Skills. Speech Intelligibility Training. PHYSICAL EXAM - Gen Alert and awake Lying in bed No apparent distress Oriented to: person, time, and place - Skin No breakdown No abnormalities - Eyes No abnormalities - ENMT No abnormalities - Neck No abnormalities - CVS RRR - Chest No abnormalities - Abd Soft - GI Non distended Deferred - No abnormalities - Ext Mild right lower extremity edema. - MSK 0/5 weakness in right lower extremity, 4/5 right upper extremity strength. - Neuro 0/5 weakness in right lower extremity, 4/5 right upper extremity strength. - Psych No abnormalities ASSESSMENT: Currently, he has deficits of Locomotion, Balance, Transfers Control, Sphincter Control, and Enduranc e.On 11/06/2019 Pt. presented to [facility] with sudden onset of right-side weakness.On 0 he was admitted to [facility] with diagnosis Left hemispheric STROKE.His impairment category is Stroke 01 - Right Body (Left Brain) (01.2).Pt. is now referred to [facility] for acute in-patient rehabilitation in order to maximize patient's functional independence in activi ties of daily living, strength, ROM, and mobility.Pre-morbidly, Pt. was independent/mod-I in Locomoti on, Safety Awareness, Social Cognition, Balance, Transfers Control, Self-Care, and Communication; and he had good Sphincter Control and Endurance.Pt. is a 74 yo Right-handed male of unknown race.- Rehab Goal Patient has realistic goal of being discharged at assistance level 7-Ind to reside at Home with Pt s elf. MDM/PLAN: - Physical Therapy Edema - to improve, our physical therapists will perform initial evaluation of pt's status upon admi ssion and devise an individualized program for Elevation Training, and Lymphedema Therapy Gait dysfunction - to improve, our physical therapists will perform initial evaluation of pt's statu s upon admission and devise an individualized program for Gait Training, and Wheel Chair mobility Inability to transfer - to improve, our physical therapists will perform initial evaluation of pt's status upon admission and devise an individualized program for Bed mobility Need for home safety evaluation - to improve, our physical therapists will perform initial evaluatio n of pt's status upon admission and devise an individualized program for Home Evaluation Need in caregiver upon discharge - to improve, our physical therapists will perform initial evaluati on of pt's status upon admission and devise an individualized program for Caregiver Training New precaution - to improve, our physical therapists will perform initial evaluation of pt's status upon admission and devise an individualized program for Patient precaution education Poor balance - to improve, our physical therapists will perform initial evaluation of pt's status up on admission and devise an individualized program for Balance Training Poor endurance - to improve, our physical therapists will perform initial evaluation of pt's status upon admission and devise an individualized program for Endurance Training Weakness - to improve, our physical therapists will perform initial evaluation of pt's status upon a dmission and devise an individualized program for Aquatic Therapy, Neuromuscular Reeducation, and Str engthening - Occupational Therapy Need for acute care physical therapist - to improve, our occupation therapists will perform initial evaluation of pt's status upon admission and devise an individualized program for Caregiver Training Weakness - to improve, our occupation therapists will perform initial evaluation of pt's status upon admission and devise an individualized program for Aquatic Therapy, Balance, Endurance, UE ROM, and UE strengthening - Cognition - orientation for aphasia - Dressing Status: dep for ADL deficits - Grooming Status: min for ADL deficits - Toilet Transfer Status: dep for ADL deficits - Bed to Chair Transfer squat pivot transfer Status: dep for ADL deficits - Tub Transfer Status: dep for ADL deficits - Shower Transfer Status: dep for ADL deficits - Wheel Chair to Bed Transfer Status: dep for ADL deficits - Other See attached MAR (Medication Administration Record) - Diet Type Continue Regular - Diet - Liquid Texture Continue Regular - Tube Feed Continue N/A - Bladder care per protocol - Weight Bearing Precaution WBAT right LE - Skin care per protocol - Diet - Solid Texture Continue Regular - Shower allowing shower for Dementia, TBI, Stroke, or others - Balance for Weakness - Bed mobility for ADL deficits - Eating for ADL deficits - Hygiene for ADL deficits FUNCTIONAL STATUS: UPDATED AT WEEKLY TEAM CONFERENCE - Bladder Same accident frequency: 7-Ind - No accidents in the past 7 days - Bowel Same accident frequency: 7-Ind - No accidents in the past 7 days - Walking Same score based on distance walked: 0(N/A) - Wheelchair Same score based on distance traveled: 0(N/A) FUNCTIONAL STATUS: - Self-Care A. Eating Usha B. Grooming sup C. Bathing maxA D. Dressing - Upper modA E. Dressing - Lower maxA F. Toileting maxA - Sphincter Control G. Bladder control Amaury H. Bowel control Amaury - Transfers Control I. Bed/Chair/Wheelchair maxA J. Toilet maxA K. Tub/Shower maxA - Locomotion L. Walk/Wheelchair (B) maxA M. Stairs ADNO - Communication N. Comprehension (B) sup O. Expression (B) sup - Social Cognition P. Social Interaction Usha Q. Problem Solving sup R. Memory sup - Endurance Poor - Balance Poor - Safety Awareness Poor QI SCORES: - Self-Care A. Eating 03-Partial/moderate assistance B. Oral hygiene 02-Substantial/maximal assistance C. Toileting hygiene 02-Substantial/maximal assistance E. Shower/bathe self 02-Substantial/maximal assistance F. Upper body dressing 02-Substantial/maximal assistance G. Lower body dressing 02-Substantial/maximal assistance H. Putting on/taking off footwear 88-Not attempted due to medical condition or safety concerns - Mobility M. 1 step (curb) 88-Not attempted due to medical condition or safety concerns N. 4 steps 88-Not attempted due to medical condition or safety concerns O. 12 steps 88-Not attempted due to medical condition or safety concerns P. Picking up object 88-Not attempted due to medical condition or safety concerns R. Wheel 50 feet with two turns 88-Not attempted due to medical condition or safety concerns A. Roll left and right 03-Partial/moderate assistance B. Sit to lying 03-Partial/moderate assistance C. Lying to sitting on side of bed 03-Partial/moderate assistance D. Sit to stand 02-Substantial/maximal assistance E. Chair/[id number]-[id number] transfer 02-Substantial/maximal assistance F. Toilet transfer 88-Not attempted due to medical condition or safety concerns G. Car transfer 88-Not attempted due to medical condition or safety concerns I. Walk 10 feet 88-Not attempted due to medical condition or safety concerns J. Walk 50 feet with two turns 88-Not attempted due to medical condition or safety concerns K. Walk 150 feet 88-Not attempted due to medical condition or safety concerns L. Walking 10 feet on uneven surfaces 88-Not attempted due to medical condition or safety concerns S. Wheel 150 feet 88-Not attempted due to medical condition or safety concerns - Bladder and Bowel Bladder continence Bowel continence - Endurance Fair - Balance Fair - Safety Awareness Fair CURRENT [facility]. DEFICITS: Endurance, Balance, Self-Care, Safety Awareness, and Mobility SIGNATURE PANEL: (CDT)
[2019-12-21] MEDS: TRAZODONE 50 MG TABLET PO PRN (20:08)
[2019-12-21] MEDS: CODEINE 30MG/APAP 300MG TAB PO PRN (20:08)
[2019-12-22] MEDS: PANTOPRAZOLE 40MG TABLET PO SCH (06:12)
[2019-12-22] MEDS: CODEINE 30MG/APAP 300MG TAB PO PRN ×2 (06:15→11:56)
[2019-12-22 06:57] LABS: Protime INR 1.89
[2019-12-22] MEDS: INSULIN -REGULAR HUMAN 50 UNIT/0.5 ML ML SQ SCH ×2 (07:25→16:30)
[2019-12-22] MEDS: ZINC OXIDE 20% OINTMENT 60gm TOP SCH ×2 (07:27→19:45)
[2019-12-22] MEDS: FLUOXETINE 20 MG CAP PO SCH (08:04)
[2019-12-22] MEDS: glipiZIDE 5 MG TAB PO SCH (08:04)
--- NOTE | 2019-12-22 09:46 | P.RH.PN ---
Estimated Length of Stay: 38 Expected Discharge Date: 12/23/19 Discharge Disposition Plan: Home Family Support: Yes [facility] Goal: Mobility, Transfers, Self Care Vital Signs: Last Vital Signs Temp 98.0 F 12/22/19 07:20 Pulse 61 12/22/19 07:20 Resp 16 12/22/19 07:20 BP 127/50 L 12/22/19 07:20 Pulse Ox 95 12/22/19 07:20 Laboratory: Laboratory Last Values WBC 4.3 K/uL (4.3-10.9) D 12/21/19 06:08 RBC 3.82 M/uL (4.33-5.43) L 12/21/19 06:08 Hgb 11.1 g/dL (13.6-17.9) L 12/21/19 06:08 Hct 32.2 % (39.6-49.0) L 12/21/19 06:08 MCV 84.4 fL (80-100) 12/21/19 06:08 MCH 29.0 pg (27.0-35.0) 12/21/19 06:08 MCHC 34.4 g/dL (32.0-36.0) 12/21/19 06:08 RDW 15.2 % (12.1-15.2) 12/21/19 06:08 Plt Count 125 K/uL (152-406) L D 12/21/19 06:08 MPV 8.9 fL (7.6-11.3) 12/21/19 06:08 Neutrophils % 59.3 % (41.7-73.7) 12/21/19 06:08 Lymphocytes % 27.6 % (15.3-44.8) 12/21/19 06:08 Monocytes % 10.3 % (3.3-12.3) 12/21/19 06:08 Eosinophils % 2.5 % (0-4.4) 12/21/19 06:08 Basophils % 0.3 % (0-1.3) 12/21/19 06:08 Absolute Neutrophils 2.6 K/uL (1.8-8.0) 12/21/19 06:08 Segmented Neutrophils 55 % (40-80) 12/14/19 05:35 Absolute Lymphocytes 1.2 K/uL (0.7-4.9) 12/21/19 06:08 Lymphocytes 30 % (15-42) 12/14/19 05:35 Monocytes 10 % (0-10) 12/14/19 05:35 Absolute Monocytes 0.4 K/uL (0.1-1.3) 12/21/19 06:08 Eosinophils 5 % (0-3) H 12/14/19 05:35 Absolute Eosinophils 0.1 K/uL (0-0.5) 12/21/19 06:08 Absolute Basophils 0.0 K/uL (0-0.5) 12/21/19 06:08 Platelet Estimate Decr 12/14/19 05:35 Giant Platelets Present 11/17/19 06:00 Morphology Comment Not seen (NOT SEEN) 12/14/19 05:35 PT 22.0 SECONDS (9.5-12.5) H 12/22/19 06:16 INR 1.89 12/22/19 06:16 Sodium 142 mmol/L (136-145) 12/21/19 06:08 Potassium 4.2 mmol/L (3.5-5.1) 12/21/19 06:08 Chloride 110 mmol/L (98-107) H 12/21/19 06:08 Carbon Dioxide 29 mmol/L (21-32) 12/21/19 06:08 BUN 19 mg/dL (7-18) H 12/21/19 06:08 Creatinine 1.09 mg/dL (0.55-1.3) 12/21/19 06:08 Estimated GFR 66 mL/min (=/>90) L 12/21/19 06:08 Glucose 110 mg/dL (74-106) H 12/21/19 06:08 POC Glucose 99 mg/dL (65-120) 12/22/19 07:16 Hemoglobin A1c 6.6 % (4.2-6.3) H 11/27/19 06:22 Calcium 8.1 mg/dL (8.5-10.1) L 12/21/19 06:08 Magnesium 2.1 mg/dL (1.8-2.4) 11/30/19 06:22 Albumin 2.5 g/dL (3.4-5.0) L 12/21/19 06:08 Prealbumin 17.8 mg/dL (20-40) L 12/21/19 06:08 Urine Color Yellow 11/16/19: Urine Appearance Clear 11/16/19: Urine pH 6.0 (5.0-7.0) 11/16/19: Ur Specific Hepzib[place] >=1.030 (1.005-1.030) 11/16/19 22:25 Glucose (UA)(Auto) 1+ (NEG) H 11/16/19 22:25 Urine Ketones Negative (NEG) 11/16/19: Urine Blood Negative (NEG) 11/16/19: Urine Nitrite Negative (NEG) 11/16/19: Urine Bilirubin Negative (NEG) 11/16/19: Urine Urobilinogen 1.0 mg/dL (0.2-1.0) 11/16/19: Ur Leukocyte Esterase Negative (NEG) 11/16/19: Urine RBC <5 /HPF (NONE SEEN) 11/16/19: Urine WBC <5 /HPF (<5) 11/16/19: Ur Squamous Epith Cells 5-10 /HPF (NONE SEEN) H 11/16/19 22:25 Calcium Oxalate Crystal Many (NONE SEEN) H 11/16/19 22:25 Urine Bacteria <20 /HPF (NONE SEEN) 11/16/19: Urine Culture Reflexed Not needed 11/16/19: Urine Total Protein Negative (NEG) 11/16/19:25 SARS-CoV-2 RNA (RT-PCR) Negative (NEGATIVE) 11/17/19 22:00 Smear Scan Ok (OK) 11/17/19 06:00 Weight: 213 lb 8 oz Wound Present: No Closed Surgical Incision Present: No Negative Pressure Wound Therapy Present: No Physician Update: INR is 1.83 today after eating more greens. He made fair overall progress with transfers, bed mobility and toileting at minimum assistance. He is walking better with minimum to moderate assistance but tends to lean to the right side. His right leg strength is improving slowly. He has some features of depression. He should followup with psychiatry. He is on prozac 20 mg daily. Medical Issues: HX INCLUDES HTN, TOBACCO ABUSE, THROMBOCYTOPENIA, DM. Medication Issues: NONE THIS WEEK. INR IS THERAPEUTIC. Pain Issues: TAKING TYLENOL FOR PAIN. Nutritional Needs: DOING WELL WITH INCREASED MEAL PORTIONS. Comment: Zinc oxide being applied to ALEIDA groin and buttocks - improvement noted Functional Improvement: Patient has met all short-term and long-term goals at this time, w/ the exception of a car transfer. Patient will be D/C from hospital on Wednesday. Patient completes well when focusing on pacing, however patient continues to require VC. 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 Please see the Rehabilitation Signature page for all necessary signatures.
[2019-12-22] MEDS ORDERED: WARFARIN SODIUM 5 MG TAB PO ONE (14:58)
[2019-12-22] MEDS: ACETAMINOPHEN 500 MG TAB PO PRN (15:56)
[2019-12-22] MEDS: WARFARIN SODIUM 3 MG TAB PO SCH (17:00)
[2019-12-22] MEDS: TRAZODONE 50 MG TABLET PO PRN (20:09)
[2019-12-23 05:41] VITALS: BMI 28.2
[2019-12-23 07:19] VITALS: BP 116/48; TEMP 97.7
[2019-12-23] MEDS: PANTOPRAZOLE 40MG TABLET PO SCH (07:30)
[2019-12-23] MEDS: INSULIN -REGULAR HUMAN 50 UNIT/0.5 ML ML SQ SCH (07:30)
[2019-12-23] MEDS: glipiZIDE 5 MG TAB PO SCH (08:00)
[2019-12-23] MEDS: FLUOXETINE 20 MG CAP PO SCH (08:01)
[2019-12-23] MEDS: ACETAMINOPHEN 500 MG TAB PO PRN (10:34)
[2019-12-23] MEDS: CODEINE 30MG/APAP 300MG TAB PO PRN (11:57)
[2019-12-23] MEDS: ZINC OXIDE 20% OINTMENT 60gm TOP SCH (12:00)
== END 2019-12-23 13:45 | DRG 57 ==
LOC: 5TH 11-16 20:41
PROVIDERS: ADMIT Psychiatry & Neurology Neurology with Special Qualifications in Child Neurology; ATTEND Psychiatry & Neurology Neurology with Special Qualifications in Child Neurology
DX: I69.351 Hemiplegia and hemiparesis following cerebral infarction affecting right dominant side (principal); I10 Essential (primary) hypertension; D69.6 Thrombocytopenia, unspecified; E11.9 Type 2 diabetes mellitus without complications; Z20.828 Contact with and (suspected) exposure to other viral communicable diseases
CPT/HCPCS: 36415; 80048; 81001; 82040; 82947; 83036; 83735; 84134; 85025; 85610; 87077; 87086; 87088; 87186; 92523; 97110; 97112; 97116; 97127; 97161; 97530; 97542; J1650; U0002; U0003